=== PATIENT | female | born 1955 | race Caucasian/White ===

== ENCOUNTER 2017-12-03 11:40 | Inpatient (IN) ==
[2017-12-03] MEDS ORDERED: Naloxone 0.4 MG/ML INJ IVP PRN (15:59)
[2017-12-03] MEDS ORDERED: Ibuprofen 400 MG TABLET PO PRN (15:59)
[2017-12-03 17:00] LABS: Basophils % 0.2 %; Eosinophils # 0.1 K/mcL (0.0-0.6); Eosinophils % 0.4 %; Hematocrit 30.1 % (35.3-44.9); Hemoglobin 9.2 g/dL (11.5-15.4); Immature Granulocytes % 1.6 % (0-4); Lymphocytes # 1.3 K/mcL (0.6-4.6); Lymphocytes % 5.5 %; Mean Corpuscular HGB Conc 30.6 g/dL (31.6-35.5); Mean Corpuscular Hemoglobin 27.5 pg (28.0-33.3); Mean Corpuscular Volume 90.1 fL (83.0-100.0); Mean Platelet Volume 10.8 fL (9.4-12.4); Monocytes # 1.4 K/mcL (0.0-1.3); Monocytes % 6.2 %; Platelet Count 305 K/mcL (140-400); Red Blood Count 3.34 M/mcL (3.82-4.97); Red Cell Distribution Width 13.5 % (11.5-14.5); Segmented Neutrophils % 86.1 %
[2017-12-03 17:05] LABS: INR 1.4; Prothrombin Time 15.5 Seconds (9.4-12.1)
--- NOTE | 2017-12-03 17:08 | Internal Med History&Physical ---
Date of Encounter: 12/03/17 Time of Encounter: 16:10 Internal Medicine - H&P: HPI History of present illness: Ms. Hathaway is a 62 year old female with history of diabetes and hypertension presented as a transfer from [facility] for GI workup. She initially presented to [facility] for fever, nausea, vomiting, diarrhea. She was unable to tolerate any food for 4 days prior to admission. She denies blood in stool, hematemesis, recent antibiotic use, sick contacts. She was dry appearing per records and creatinine was elevated above her baseline and was reported to be lethargic as well. She was admitted for intractable n/v and kidney failure. She was started on broad-spectrum antibiotics and given IV fluid hydration. It was noted that initially WBC on admission was 15.8k and decreased but over the course of admission increased to 22.5k. She was afebrile during this time. CRP on admission was 34 but four days later was 41 despite antibiotic treatment. I was informed that he was seen by Surgery during this admission. However, faxed reports do not have any progress or consult notes, only initial H&P. Per review, patient was given IV fluids, sodium bicarb, meropenem, and Levaquin. Prior to transfer, she was given a dose of IV Lasix. Radiology findings as below; notable the MRCP showing acute pancreatitis with multiple gall stones. RUQ showed negative for cholecystitis. Lipase 253. LA was 3 and then decreased to 1.6. glucose ranged from 200 to 460. AST was 72, ALT was 51 and Alk phos was 149. Total bilirubin was normal at 0.3. Creatinine was 2.72 on admission but improved to 1.8 four days later. - She denies ETOH abuse, smoking, rec drugs, OTC/herbal medications - Chest x-ray 11/29: showed clear lung apices with atelectasis. - CT abdomen/pelvis 11/30: Cholelithiasis with 2.5 mm stone at extrahepatic CBD in region of the duodenal bulb/pancreatic head/uncinate process with enlargement of the pancreas and surrounding peripancreatic stranding. Findings consistent with acute pancreatitis likely secondary to impacted gallstone at common bile duct. - MRCP 12/01: Study was significantly limited by motion but findings were: acute pancreatitis, the CBD poorly visualized though suspected to be compressed by the pancreatitis. The punctate suspected CBD stone on CT cannot be adequately asessed on MRI due to motion. Cholelithiasis seen as multiple tiny stones. Diffuse periportal edema in the liver. Hepatic steatosis - RUQ ultrasound: cholelithiasis without cholecystitis or obstruction. Past Med Surg Social Fam HX - Past Medical History Medical history: arthritis, CHF, coronary artery disease, diabetes, GERD, hypertension Additional medical history: cataract removal, tonsil removal Psychiatric history: no psych history - Past Surgical History Surgical History: - Social History Smoking Status: Former smoker Smokeless Tobacco Status: No Alcohol use: none Drug use: none Internal Medicine - H&P: Meds Gluc 2Kcl/Chondr/Rivas Hy/Hy AC [Glucosamine & Chondroitin Cap] 1 each PO DAILY 12/03/17 [History] Lisinopril/Hydrochlorothiazide [Zestoretic 20-25 mg Tablet] 1 each PO DAILY [History] glipiZIDE [Glipizide] 10 mg PO DAILY 12/03/17 [History] metFORMIN [Glucophage] 1,000 mg PO BID 12/03/17 [History] 3 Allergy/AdvReac Type Severity Reaction Status Date / Time diphenhydramine Allergy Hives Verified 12/03/17 15:08 [From Benadryl] morphine Allergy Hives Verified 12/03/17 15:08 Penicillins Allergy Hives Verified 12/03/17 15:08 All Systems PM: A 10-system review of systems was performed and is negative for pertinent findings except as documented above in the HPI. - Constitutional Vitals: Temp Pulse Resp BP Pulse Ox 97.3 F L 100 20 137/76 96 12/03/17 15:14 12/03/17 15:14 12/03/17 15:14 12/03/17 15:14 12/03/17 15:14 General appearance: Present: A&O X 3, obese Exam: NAD - Head Head exam: Present: atraumatic, normocephalic - Eye Eye exam: Present: PERRL, conjuntiva pink, sclera anicteric Pupils: Present: PERRL - Neck Neck exam general surgery: Present: supple, trachea midline. Absent: lymphadenopathy - Respiratory Respiratory exam: Present: CTAB. Absent: accessory muscle use, rales, rhonchi, wheezes - Cardiovascular Cardiovascular exam: Present: RRR, +S1, +S2. Absent: diastolic murmur, gallop, rubs, systolic murmur - GI/Abdominal GI/Abdominal exam: Present: normal bowel sounds, soft, tenderness, no peritoneal signs. Absent: distended - Extremities Exam Extremities exam: Present: warm, radial pulses palpable and symmetrical. Absent : calf tenderness, cyanotic, pedal edema - Neurological Exam Neurological exam: Present: CN II-XII intact, oriented X3, no focal deficits. Absent: pronater drift, facial droop, speech deficit - Skin Skin exam: Present: dry, intact Internal Med - H&P Results - Labs CBC & Chem 7: 12/03/17 16:41 12/03/17 16:41 - Assessment and plan (1) Gallstone pancreatitis Current Visit: Yes Status: Acute Assessment and plan: Seen on MRCP at [place]. Lipase was 200s. Abdominal pain still present per patient. Imaging as above showed cholelithiasis near pancreatitc duct. Will consult GI for possible ERCP. The MRCP had poor quality due to excessive motion , will defer to GI if repeat imaging is needed. Records from [place] have been sent over with H&P and images. I requested progress notes and Surgery consults but only one progress note has been sent. We have requested another time that progress notes and consult faxed over to review. (2) Intractable nausea and vomiting Current Visit: Yes Status: Acute Assessment and plan: Likely acute pancreatitis, possibly gastroparesis as well. Zofran prn. Qualifiers: Vomiting type: unspecified Qualified Code(s): R11.2 - Nausea with vomiting , unspecified (3) Abdominal pain Current Visit: Yes Status: Acute Qualifiers: Abdominal location: epigastric Qualified Code(s): R10.13 - Epigastric pain (4) Diabetes Current Visit: Yes Status: Acute Assessment and plan: Diabetic diet, ISS NPO at midnight, then check glucose q6H Qualifiers: Diabetes mellitus type: type 2 Diabetes mellitus terminal system operator insulin use: with detention use Diabetes mellitus complication status: with unspecified complications Qualified Code(s): E11.8 - Type 2 diabetes mellitus with unspecified complications; Z79.4 - intermodal dispatcher (current) use of insulin (5) Hypertension Current Visit: Yes Status: Acute Assessment and plan: Takes lisinopril/HCTZ at home but will hold due to renal function. BP currently in acceptable limits. Will place prn labetolol. Qualifiers: Hypertension type: essential hypertension Qualified Code(s): I10 - Essential (primary) hypertension (6) Leukocytosis Current Visit: Yes Status: Acute Assessment and plan: Possibly related to acute pancreatitis, unsure if infectious etiology involved. She was placed on meropenem and levaquin Will continue broad spectrum antibiotics. May need to consult ID for further evaluation Qualifiers: Leukocytosis type: unspecified Qualified Code(s): D72.829 - Elevated white blood cell count, unspecified (7) Acute renal failure Current Visit: Yes Status: Acute Assessment and plan: Based on history, this may have been due to dehydration with severe n/v. Continue IV fluid replacement if needed. However, patient required Lasix prior to arrival, will hold off on giving IV fluids right now. Prior to transfer, Creatinin was 1.8 BMP pending Qualifiers: Acute renal failure type: unspecified Qualified Code(s): N17.9 - Acute kidney failure, unspecified (8) DVT prophylaxis Current Visit: Yes Status: Acute Assessment and plan: Heparin SQ - Time Spent With Patient Total time spent is greater than 50% in coordination of care (as documented) at patient's floor/unit and/or counseling patient:
[2017-12-03] MEDS ORDERED: Melatonin 3 MG TABLET PO PRN (17:10)
[2017-12-03] MEDS ORDERED: Sennosides/Docusate Sodium TABLET PO PRN (17:11)
[2017-12-03] MEDS ORDERED: *HR* Labetalol 20 MG/4 ML SYRINGE IVP PRN (17:15)
[2017-12-03 17:19] LABS: Albumin 3.1 g/dL (3.5-5.7); Albumin/Globulin Ratio 1.1 (1.1-2.2); Bilirubin,Direct 0.2 mg/dL (0.0-0.2); Bilirubin,Indirect 0.2 mg/dL (0.0-1.2); Bilirubin,Total 0.4 mg/dL (0.3-1.0); Calcium 8.4 mg/dL (8.6-10.3); Chol/HDL Ratio 2.7 (0-4.9); Globulin 2.7 g/dL (2.4-3.5); Potassium 4.8 mEq/L (3.5-5.1); Total Protein 5.8 g/dL (6.4-8.9)
[2017-12-03] MEDS ORDERED: *HR* Heparin 5,000 UNIT/ML VIAL SQ SCH (18:00)
[2017-12-03] MEDS: *HR* Heparin 5,000 UNIT/ML VIAL SQ SCH (20:08)
[2017-12-03] MEDS ORDERED: Insulin LISPRO 300 UNITS/3 ML VIAL SQ SCH (21:00)
[2017-12-03] MEDS: *HR* OxyCODONE Immed Rel 5 MG TABLET PO PRN (21:59)
[2017-12-03] MEDS: Meropenem 1,000 MG in Water for inj. (sterile) 20 ML 10 ML IVP SCH (23:58)
[2017-12-04 05:16] LABS: Basophils % 0.2 %; Eosinophils # 0.2 K/mcL (0.0-0.6); Eosinophils % 0.7 %; Hematocrit 27.2 % (35.3-44.9); Hemoglobin 8.5 g/dL (11.5-15.4); Immature Granulocytes % 1.9 % (0-4); Lymphocytes # 1.2 K/mcL (0.6-4.6); Lymphocytes % 4.9 %; Mean Corpuscular HGB Conc 31.3 g/dL (31.6-35.5); Mean Corpuscular Hemoglobin 27.3 pg (28.0-33.3); Mean Corpuscular Volume 87.5 fL (83.0-100.0); Mean Platelet Volume 10.6 fL (9.4-12.4); Monocytes # 1.5 K/mcL (0.0-1.3); Monocytes % 6.1 %; Neutrophils # 20.5 K/mcL (1.6-8.9); Platelet Count 341 K/mcL (140-400); Red Blood Count 3.11 M/mcL (3.82-4.97); Red Cell Distribution Width 13.7 % (11.5-14.5); Segmented Neutrophils % 86.2 %
[2017-12-04 05:37] LABS: Alanine Aminotransferase 22 Units/L (7-52); Albumin 2.7 g/dL (3.5-5.7); Albumin/Globulin Ratio 0.9 (1.1-2.2); Alkaline Phosphatase 126 Units/L (34-104); Aspartate Amino Transferase 17 Units/L (13-39); Bilirubin,Direct 0.1 mg/dL (0.0-0.2); Bilirubin,Indirect 0.2 mg/dL (0.0-1.2); Bilirubin,Total 0.3 mg/dL (0.3-1.0); C-Reactive Protein > 300 mg/L (Less than 10); Calcium 8.4 mg/dL (8.6-10.3); Globulin 3.1 g/dL (2.4-3.5); Lipase 18 Units/L (11-82); Potassium 4.5 mEq/L (3.5-5.1); Total Protein 5.8 g/dL (6.4-8.9)
[2017-12-04] MEDS: *HR* Heparin 5,000 UNIT/ML VIAL SQ SCH ×2 (05:43→18:22)
[2017-12-04] MEDS ORDERED: Insulin LISPRO 300 UNITS/3 ML VIAL SQ SCH (08:00)
[2017-12-04] MEDS: *HR* OxyCODONE Immed Rel 5 MG TABLET PO PRN ×2 (09:00→18:22)
[2017-12-04] MEDS: Ondansetron 4 MG/2 ML VIAL IVP PRN (09:00)
[2017-12-04] MEDS ORDERED: D5% in Water 1,000 ML IVC PRN (10:10)
[2017-12-04] MEDS ORDERED: *HR* Dextrose 50 % in Water (Syg) 50 ML SYRINGE IVP PRN (10:10)
[2017-12-04] MEDS ORDERED: Dextrose Gel 15 GM/37.5 ML TUBE PO PRN ×2 (10:10)
--- NOTE | 2017-12-04 10:11 | Internal Med Progress Note ---
Hospitalist Progress Note - Encounter Date of Encounter: 12/04/17 Time of Encounter: 10:21 - Exam Vitals: Temp Pulse Resp BP Pulse Ox 98.0 F 102 17 135/64 94 12/04/17 06:57 12/04/17 06:57 12/04/17 06:57 12/04/17 06:57 12/04/17 06:57 Exam: Gen: NAD CVS: tachycardic Lungs: Decreased air entry and lung dougherty, limited due to body habitus. Faint end exp wheezing. Abd: + epigastric tenderness, normal bowel sounds. Ext; no edema - Assessment and Plan (1) Gallstone pancreatitis Current Visit: Yes Status: Acute Assessment and Plan: Seen on MRCP at [place]. Lipase was 200s. Abdominal pain still present per patient. Imaging as above showed cholelithiasis near pancreatitc duct. Will consult GI for possible ERCP. The MRCP had poor quality due to excessive motion , will defer to GI if repeat imaging is needed. Records from [place] have been sent over with H&P and images. I requested progress notes and Surgery consults but only one progress note has been sent. Repeat CT abdomen/pelvis here without contrast (due to renal function) I was just informed that the discharge summary was done today and so they will fax it over now. (2) Intractable nausea and vomiting Current Visit: Yes Status: Acute Assessment and Plan: Likely acute pancreatitis, possibly gastroparesis as well. Zofran prn. (3) Abdominal pain Current Visit: Yes Status: Acute Assessment and Plan: Plan as above. (4) Leukocytosis Current Visit: Yes Status: Acute Assessment and Plan: Possibly related to acute pancreatitis, unsure if infectious etiology involved. - Chest x-ray 11/29: showed clear lung apices with atelectasis. - CT abdomen/pelvis 11/30: Cholelithiasis with 2.5 mm stone at extrahepatic CBD in region of the duodenal bulb/pancreatic head/uncinate process with enlargement of the pancreas and surrounding peripancreatic stranding. Findings consistent with acute pancreatitis likely secondary to impacted gallstone at common bile duct. - MRCP 12/01: Study was significantly limited by motion but findings were: acute pancreatitis, the CBD poorly visualized though suspected to be compressed by the pancreatitis. The punctate suspected CBD stone on CT cannot be adequately asessed on MRI due to motion. Cholelithiasis seen as multiple tiny stones. Diffuse periportal edema in the liver. Hepatic steatosis - RUQ ultrasound: cholelithiasis without cholecystitis or obstruction. She was placed on meropenem and levaquin at [place] = Here WBC is 23k two days - CRP >300. - Afebrile - tachycardic Will continue meropenem and Levaquin Will consult ID for evaluation Repeat CT abdomen/Pelvis stat to ensure no pancreatitis complications. (5) Diabetes Current Visit: Yes Status: Acute Assessment and Plan: Diabetic diet, ISS NPO at midnight, then check glucose q6H (6) Hypertension Current Visit: Yes Status: Acute Assessment and Plan: Takes lisinopril/HCTZ at home but will hold due to renal function. BP currently in acceptable limits. Will place prn labetolol. (7) Acute renal failure Current Visit: Yes Status: Acute Assessment and Plan: Based on history, this may have been due to dehydration with severe n/v. Continue IV fluid replacement if needed. However, patient required Lasix prior to arrival, will hold off on giving IV fluids right now. Prior to transfer, Creatinine at [facility] was 2.72 and gradually improved with IV fluids. Currently it has improved to 1.6. (8) DVT prophylaxis Current Visit: Yes Status: Acute Assessment and Plan: Heparin SQ - Time Spent with Patient Total time spent is greater than 50% in coordination of care (as documented) at patient's floor/unit and/or counseling patient: Internal Medicine: Result - Labs CBC & Chem 7: 12/04/17 04:55 12/04/17 04:55 Labs: Short CBC 12/03/17 12/04/17 Range/Units 16:41 04:55 WBC 23.2 H 23.8 H (4.3-11.1) K/mcL Hgb 9.2 L 8.5 L (11.5-15.4) g/dL Hct 30.1 L 27.2 L (35.3-44.9) % Plt Count 305 341 (140-400) K/mcL Neutrophils # 20.0 H 20.5 H (1.6-8.9) K/mcL BMP 12/03/17 12/04/17 16:41 04:55 Sodium 139 139 Potassium 4.8 4.5 Chloride 113 H 112 H Carbon Dioxide 17 L 15 L BUN 38 H 36 H Creatinine 1.69 H 1.55 H Glucose 196 H 238 H Calcium 8.4 L 8.4 L Liver Function 12/03/17 12/04/17 Range/Units 16:41 04:55 Total Bilirubin 0.4 0.3 (0.3-1.0) mg/dL Direct Bilirubin 0.2 0.1 (0.0-0.2) mg/dL AST 19 17 (13-39) Units/L ALT 29 22 (7-52) Units/L Alkaline Phosphatase 142 H 126 H (34-104) Units/L Albumin 3.1 L 2.7 L (3.5-5.7) g/dL - ABG Interpretation ABG results: PT/INR, D-dimer PT 15.5 Seconds (9.4-12.1) H 12/03/17 16:41 Consult Discharge Plan - Plan Referrals: Carol Hurd, MEAL TEMPERER [Primary Care Provider] - (2) Intractable nausea and vomiting Qualifiers: Vomiting type: unspecified Qualified Code(s): R11.2 - Nausea with vomiting, unspecified (3) Abdominal pain Qualifiers: Abdominal location: epigastric Qualified Code(s): R10.13 - Epigastric pain (4) Leukocytosis Qualifiers: Leukocytosis type: unspecified Qualified Code(s): D72.829 - Elevated white blood cell count, unspecified (5) Diabetes Qualifiers: Diabetes mellitus type: type 2 Diabetes mellitus oysterman insulin use: with shelter use Diabetes mellitus complication status: with unspecified complications Qualified Code(s): E11.8 - Type 2 diabetes mellitus with unspecified complications; Z79.4 - manager intermediate (current) use of insulin (6) Hypertension Qualifiers: Hypertension type: essential hypertension Qualified Code(s): I10 - Essential (primary) hypertension (7) Acute renal failure Qualifiers: Acute renal failure type: unspecified Qualified Code(s): N17.9 - Acute kidney failure, unspecified
[2017-12-04] MEDS ORDERED: Ringers Solution, Lactated 1,000 ML IVC SCH (10:30)
--- NOTE | 2017-12-04 12:24 | Gastroenterology Consult Note ---
<Barry Villa - Last Filed: 12/04/17 12:22> Date of Encounter: 12/04/17 Time of Encounter: 11:00 - Assessment and plan (1) Gallstone pancreatitis Current Visit: Yes Status: Acute Assessment and plan: - CT abdomen/pelvis 11/30: Cholelithiasis with 2.5 mm stone at extrahepatic CBD in region of the duodenal bulb/pancreatic head/uncinate process with enlargement of the pancreas and surrounding peripancreatic stranding. Findings consistent with acute pancreatitis likely secondary to impacted gallstone at common bile duct. - MRCP 12/01: Study was significantly limited by motion but findings were: acute pancreatitis, the CBD poorly visualized though suspected to be compressed by the pancreatitis. The punctate suspected CBD stone on CT cannot be adequately assessed on MRI due to motion. Cholelithiasis seen as multiple tiny stones. Diffuse periportal edema in the liver. Hepatic steatosis - RUQ ultrasound: cholelithiasis without cholecystitis or obstruction. No indication of obstruction on MRCP. LFT's normal. No evidence of cholangitis. Start IV fluids. Continue antiemetics and pain control. If LFTs increase will consider ERCP. Start clear liquid diet, and slowly advance as tolerated. - Time Spent With Patient Total time spent is greater than 50% in coordination of care (as documented) at patient's floor/unit and/or counseling patient: GI History of Present Illness - Data of Consult Patient: new to practice Consult date: 12/04/17 Requesting Physician: Michael Bello DO - Consult Narrative Reason for consult: Pancreatitis History of present illness: Ms. Hathaway is a 62 year old female with PMHx of arthritis, CHF, CAD, DM, GERD, HTN who was transferred from [facility] for GI workup. She initially presented to [facility] for fever, nausea, vomiting, diarrhea. She was unable to tolerate any food for 4 days prior to admission. She denies blood in stool, hematemesis, recent antibiotic use, sick contacts. She was dry appearing per records and creatinine was elevated above her baseline and was reported to be lethargic as well. She was admitted for intractable n/v and kidney failure. She was started on broad-spectrum antibiotics and given IV fluid hydration. It was noted that initially WBC on admission was 15.8k and decreased but over the course of admission increased to 22.5k. She was afebrile during this time. CRP on admission was 34 but four days later was 41 despite antibiotic treatment. Lipase was 253, AST was 72, ALT was 51 and Alk phos was 149. She denies ETOH abuse, smoking, recreational drugs. On admission here, WBC 23.2, Hgb 9.2, TB 0.4, AST 19, ALT 29, Alk phos 142, Lipase 18, CRP >300. - CT abdomen/pelvis 11/30: Cholelithiasis with 2.5 mm stone at extrahepatic CBD in region of the duodenal bulb/pancreatic head/uncinate process with enlargement of the pancreas and surrounding peripancreatic stranding. Findings consistent with acute pancreatitis likely secondary to impacted gallstone at common bile duct. - MRCP 12/01: Study was significantly limited by motion but findings were: acute pancreatitis, the CBD poorly visualized though suspected to be compressed by the pancreatitis. The punctate suspected CBD stone on CT cannot be adequately assessed on MRI due to motion. Cholelithiasis seen as multiple tiny stones. Diffuse periportal edema in the liver. Hepatic steatosis - RUQ ultrasound: cholelithiasis without cholecystitis or obstruction. Procedures: No records NSAIDs: None Anticoagulation: None Past Med Surg Social Fam HX - Past Medical History Medical history: arthritis, CHF, coronary artery disease, diabetes, GERD, hypertension Additional medical history: cataract removal, tonsil removal Psychiatric history: no psych history - Past Surgical History Surgical History: - Social History Smoking Status: Former smoker Smokeless Tobacco Status: No Alcohol use: none Drug use: none - Gastrointestinal Gastrointestinal: Present: as per HPI - Constitutional Constitutional: as per HPI - EENT Eyes: as per HPI Ears: Present: as per HPI Nose, mouth and throat: Present: as per HPI - Cardiovascular Cardiovascular ROS: Present: as per HPI - Respiratory Respiratory IM: Present: as per HPI - Genitourinary Genitourinary: Absent: change in color, Urinary frequency - Neurological ROS Neurological GI: Present: as per HPI - Hematologic/Lymphatic Hematologic/Lymphatic pediatric: Present: as per HPI - Musculoskeletal Musculoskeletal ROS GI: Present: as per HPI - Integumentary Integumentary GI: Present: as per HPI - Psychiatric ROS Psychiatric GI: Present: as per HPI - Endocrine Endocrine IM: Present: as per HPI - Constitutional Vitals: Temp Pulse Resp BP Pulse Ox 97.8 F 101 16 147/79 98 09/28/18 11:21 12/04/17 11:21 12/04/17 11:21 12/04/17 11:21 12/04/17 11:21 General appearance: Present: cooperative, A&O X 3, no acute distress, answers questions appropriately - Head Head exam: Present: atraumatic, normocephalic - Eye Eye exam: Present: normal appearance, sclera anicteric - ENT ENT exam: Present: mucous membranes dry - Neck Neck exam general surgery: Present: normal inspection, trachea midline - Respiratory Respiratory exam: Present: CTAB. Absent: rales, rhonchi - Cardiovascular Cardiovascular exam: Present: RRR, +S1, +S2 - GI/Abdominal GI/Abdominal exam: Present: soft, tenderness (epigastric and LUQ), no peritoneal signs. Absent: distended, firm, guarding - Rectal Rectal exam: Present: deferred - Extremities Exam Extremities exam: Present: warm - Neurological Exam Neurological exam: Present: no focal deficits - Psychiatric Psychiatric exam: Present: normal affect, normal mood - Skin Skin exam: Present: dry, intact, normal color, warm Results - Labs CBC & Chem 7: 12/04/17 04:55 12/04/17 04:55 Labs: Last Result Calcium 8.4 mg/dL (8.6-10.3) L 12/04/17 04:55 C-Reactive Protein > 300 mg/L (Less than 10) H 12/04/17 04:55 Triglycerides 114 mg/dL (< 150) 12/03/17 16:41 Entire Visit Hgb 8.5 g/dL (11.5-15.4) L 12/04/17 04:55 Hct 27.2 % (35.3-44.9) L 12/04/17 04:55 PT 15.5 Seconds (9.4-12.1) H 12/03/17 16:41 Total Bilirubin 0.3 mg/dL (0.3-1.0) 12/04/17 04:55 AST 17 Units/L (13-39) 12/04/17 04:55 ALT 22 Units/L (7-52) 12/04/17 04:55 Lipase 18 Units/L (11-82) 12/04/17 04:55 - ABG ABG results: PT/INR, D-dimer PT 15.5 Seconds (9.4-12.1) H 12/03/17 16:41 - Impressions Impressions Abdomen/Pelvis CT 12/04/17 10:27 IMPRESSION: 1. Progressing CT findings of acute pancreatitis. There is a 2 mm calculus pancreatic head. Cannot exclude distal common bile duct stone. 2. Cholelithiasis. 3. Bilateral pleural effusions with lower lobe atelectasis or infiltrate. 4. Diverticulosis. 5. Pelvic ascites. D/ / 12/04/2017 11:27:54 Calin Wilhelm MD / [place] Interpreting Provider: Calin Wilhelm MD Chest CT 12/04/17 10:27 IMPRESSION: 1. Small bilateral pleural effusions with lower lobe atelectasis or infiltrate right greater the left. D/ / 12/04/2017 11:22:14 Calin Wilhelm MD / [place] Interpreting Provider: Calin Wilhelm MD Consult Discharge Plan - Plan Referrals: Carol Hurd, RETORT OPERATOR [Primary Care Provider] - <[email or web address] - Last Filed: 12/04/17 16:39> Date of Encounter: 12/04/17 Time of Encounter: 10:00 - Time Spent With Patient Total time spent is greater than 50% in coordination of care (as documented) at patient's floor/unit and/or counseling patient: GI History of Present Illness - Data of Consult Requesting Physician: Michael Bello DO - Consult Narrative History of present illness: Ms. Hathaway is a 62 year old female - Constitutional Vitals: Temp Pulse Resp BP Pulse Ox 99.1 F 90 17 127/76 96 12/04/17 16:27 12/04/17 16:27 12/04/17 16:27 12/04/17 16:27 12/04/17 16:27 Results - Labs CBC & Chem 7: 12/04/17 04:55 12/04/17 04:55 Labs: Last Result Calcium 8.4 mg/dL (8.6-10.3) L 12/04/17 04:55 C-Reactive Protein > 300 mg/L (Less than 10) H 12/04/17 04:55 Triglycerides 114 mg/dL (< 150) 12/03/17 16:41 Entire Visit Hgb 8.5 g/dL (11.5-15.4) L 12/04/17 04:55 Hct 27.2 % (35.3-44.9) L 12/04/17 04:55 PT 15.5 Seconds (9.4-12.1) H 12/03/17 16:41 Total Bilirubin 0.3 mg/dL (0.3-1.0) 12/04/17 04:55 AST 17 Units/L (13-39) 12/04/17 04:55 ALT 22 Units/L (7-52) 12/04/17 04:55 Lipase 18 Units/L (11-82) 12/04/17 04:55 - ABG ABG results: PT/INR, D-dimer PT 15.5 Seconds (9.4-12.1) H 12/03/17 16:41 - Impressions Impressions Abdomen/Pelvis CT 12/04/17 10:27 IMPRESSION: 1. Progressing CT findings of acute pancreatitis. There is a 2 mm calculus pancreatic head. Cannot exclude distal common bile duct stone. 2. Cholelithiasis. 3. Bilateral pleural effusions with lower lobe atelectasis or infiltrate. 4. Diverticulosis. 5. Pelvic ascites. D/ / 12/04/2017 11:27:54 Calin Wilhelm MD / [email or web address] Interpreting Provider: Calin Wilhelm MD Chest CT 12/04/17 10:27 IMPRESSION: 1. Small bilateral pleural effusions with lower lobe atelectasis or infiltrate right greater the left. D/ / 12/04/2017 11:22:14 Calin Wilhelm MD / [facility] Interpreting Provider: Calin Wilhelm MD - Attending Attestation I examined this patient and my medical decision-making was reviewed with the Resident Physician. I agree with the documented findings, disposition and treatment plan as described except to the extent set forth below. Pt seen. No active issues. Wants to eat. O/E soft , mild upper tanderness. A; Pt with acute pancreatitis most prob GS induced with worsening Ct finding. Has bilateral small pleural effusion. CT reapet done witout IV. BISAP score 4 ( significant risk ) No cholangitis, LFTS normal. Rec: NPO Ringer lactate 200 ml/hr Pain control NO NSAIDS DVT prophylaxsis
--- NOTE | 2017-12-04 13:03 | Infectious Disease Consult ---
Date of Encounter: 12/04/17 Time of Encounter: 12:58 Assessment and Plan (1) Gallstone pancreatitis Status: Acute Assessment and plan: Pancreatitis is known to cause SIRS criteria including tachycardia and tachypnea and leukocytosis and fever Per guidelines there is no recommendation to treat unless you have necrosis with over 30% of the pancreas or pseudocyst We will stop all antibiotics and observe Await surgery or GI recommendation to see of the gallbladder studies are they need to remove it because it continues to have cholelithiasis (2) SIRS (systemic inflammatory response syndrome) Status: Acute Assessment and plan: Secondary to acute pancreatitis (3) Allergy to antibiotic Status: Acute Assessment and plan: Has penicillin allergy about 4 years ago Tolerates amoxicillin (4) Intractable nausea and vomiting Status: Acute Assessment and plan: Secondary to acute pancreatitis secondary to obstructive pancreatitis Qualifiers: Vomiting type: unspecified Qualified Code(s): R11.2 - Nausea with vomiting , unspecified (5) Abdominal pain Status: Acute Qualifiers: Abdominal location: epigastric Qualified Code(s): R10.13 - Epigastric pain (6) Acute renal failure Status: Acute Assessment and plan: Likely secondary to pancreatitis Recommend nephrology to evaluate Qualifiers: Acute renal failure type: unspecified Qualified Code(s): N17.9 - Acute kidney failure, unspecified Infectious Disease HPI - Data of Consult Patient: new to practice Consult date: 12/04/17 Requesting Physician: Michael Bello DO Primary Care Provider: Carol Hurd CNP - Consult Narrative Reason for consult: "Leukocytosis, possible infection" History of present illness: Ms. Hathaway is a 62 year old female Patient is a 8-year-old woman who presented to [facility] from [facility] for fevers nausea vomiting and diarrhea, we are consulted for possible infectious source. Patient 8-year-old woman with past medical history mentioned below including arthritis, congestive heart failure, coronary artery disease, diabetes mellitus type 2, GERD and hypertension who apparently for a few days prior to admission has been complaining of nausea vomiting diarrhea fever and anorexia. Patient denied any blood in the stool or hematemesis. Patient denied any recent antibiotic use or sick contacts. Patient presented to [place] for further evaluation. Since admission, patient has been afebrile patient has been tachycardic but no tachypnea. Patient is hemodynamically stable. Presenting labs revealed a WC of 23,000 with 86% neutrophils, BUN of 38 creatinine of 1.69, lactic acid of 1.4 CRP over 300. Lipase was checked and it was 18. Blood cultures were obtained 2 and are no growth to date Patient had a CT chest abdomen and pelvis which revealed small bilateral pleural effusion with lower lobe atelectasis or infiltrate right greater than left. CT of the abdomen and pelvis with no IV no oral contrast to be acute pancreatitis with a 2 mm calculus in the pancreatic head possible common bile duct stone. Patient also has cholelithiasis diverticulosis and pelvic ascites. Patient was started empirically on meropenem We were asked to evaluate the patient and make further recommendation. Patient also apparently has a history of penicillin allergy. CC: Michael Bello, DO Past Med Surg Social Fam HX - Past Medical History Medical history: arthritis, CHF, coronary artery disease, diabetes, GERD, hypertension Additional medical history: cataract removal, tonsil removal Psychiatric history: no psych history - Past Surgical History Surgical History: - Social History Smoking Status: Former smoker Smokeless Tobacco Status: No Alcohol use: none Drug use: none Infectious Disease-CN:Meds Gluc 2Kcl/Chondr/Rivas Hy/Hy AC [Glucosamine & Chondroitin Cap] 1 each PO DAILY 12/03/17 [History] Lisinopril/Hydrochlorothiazide [Zestoretic 20-25 mg Tablet] 1 each PO DAILY [History] glipiZIDE [Glipizide] 10 mg PO DAILY 12/03/17 [History] metFORMIN [Glucophage] 1,000 mg PO BID 12/03/17 [History] 3 Allergy/AdvReac Type Severity Reaction Status Date / Time diphenhydramine Allergy Hives Verified 12/03/17 15:08 [From Benadryl] morphine Allergy Hives Verified 12/03/17 15:08 Penicillins Allergy Hives Verified 12/03/17 15:08 Review of systems: 10 point review of systems done, negative other for what mentioned in the history of present illness Exam - Constitutional Vitals: Temp Pulse Resp BP Pulse Ox 97.8 F 101 16 147/79 98 12/04/17 11:21 12/04/17 11:21 12/04/17 11:21 12/04/17 11:21 12/04/17 11:21 General appearance: cooperative, no acute distress, no febrile - Head Head exam: Present: atraumatic, normocephalic - Eye Eye exam: Present: EOMI, PERRL, sclera anicteric - ENT ENT exam: Present: mucous membranes dry - Neck Neck exam: Present: full ROM. Absent: meningismus - Respiratory Respiratory exam: Present: CTAB, wheezes. Absent: rhonchi Additional comments: Labored breathing but no use of accessory muscles - Cardiovascular Cardiovascular exam: Present: RRR, +S1, +S2, tachycardia - GI/Abdominal GI/Abdominal exam: Present: soft, tenderness. Absent: guarding Additional comments: In the epigastric and left upper quadrant area - Extremities Exam Extremities exam: Present: full ROM, normal inspection - Neurological Exam Neurological exam: Present: alert, oriented X3 - Psychiatric Psychiatric exam: Present: normal affect, normal mood - Skin Skin exam: Present: normal color. Absent: rash Infectious Disease CN: Results - Labs CBC & Chem 7: 12/04/17 04:55 12/04/17 04:55 Cultures: Cultures 12/03/17 16:39 Blood Culture - Preliminary Peripheral Venipuncture Culture is incubating and being continuously monitored for growth. Final report to follow. 12/03/17 16:44 Blood Culture - Preliminary Peripheral Venipuncture Culture is incubating and being continuously monitored for growth. Final report to follow. Consult Discharge Plan - Plan Referrals: Carol Hurd CNP [Primary Care Provider] -
[2017-12-04] MEDS: Meropenem 1,000 MG in Water for inj. (sterile) 20 ML 10 ML IVP SCH (13:21)
[2017-12-04] MEDS: Insulin LISPRO 300 UNITS/3 ML VIAL SQ SCH ×2 (13:21→18:23)
[2017-12-04] MEDS ORDERED: Ringers Solution, Lactated 1,000 ML ONE (19:05)
[2017-12-05] MEDS: Ringers Solution, Lactated 1,000 ML IVC SCH ×3 (00:15→18:57)
[2017-12-05] MEDS: traMADol 50 MG TABLET PO PRN (00:36)
[2017-12-05] MEDS: Insulin LISPRO 300 UNITS/3 ML VIAL SQ SCH ×6 (00:38→20:40)
[2017-12-05 04:39] LABS: Basophils % 0.1 %; Eosinophils # 0.2 K/mcL (0.0-0.6); Eosinophils % 1.2 %; Hematocrit 24.7 % (35.3-44.9); Hemoglobin 7.6 g/dL (11.5-15.4); Immature Granulocytes % 1.5 % (0-4); Lymphocytes # 1.2 K/mcL (0.6-4.6); Lymphocytes % 6.8 %; Mean Corpuscular HGB Conc 30.8 g/dL (31.6-35.5); Mean Corpuscular Hemoglobin 27.3 pg (28.0-33.3); Mean Corpuscular Volume 88.8 fL (83.0-100.0); Mean Platelet Volume 10.3 fL (9.4-12.4); Monocytes # 1.1 K/mcL (0.0-1.3); Monocytes % 5.8 %; Neutrophils # 15.3 K/mcL (1.6-8.9); Platelet Count 328 K/mcL (140-400); Red Blood Count 2.78 M/mcL (3.82-4.97); Red Cell Distribution Width 13.5 % (11.5-14.5); Segmented Neutrophils % 84.6 %
[2017-12-05 04:55] LABS: Calcium 8.2 mg/dL (8.6-10.3); Potassium 3.9 mEq/L (3.5-5.1)
[2017-12-05] MEDS: *HR* Heparin 5,000 UNIT/ML VIAL SQ SCH ×2 (06:20→17:42)
[2017-12-05] MEDS: *HR* OxyCODONE Immed Rel 5 MG TABLET PO PRN ×2 (06:20→20:45)
[2017-12-05] MEDS: Ondansetron 4 MG/2 ML VIAL IVP PRN ×2 (09:30→20:43)
--- NOTE | 2017-12-05 14:23 | Internal Med Progress Note ---
Hospitalist Progress Note - Encounter Date of Encounter: 12/05/17 Time of Encounter: 14:21 - Subjective Interval History: No acute events. She is trying to advance diet but currently nauseated. Abdominal pain has slight improvement. - Exam Vitals: Temp Pulse Resp BP Pulse Ox 98.9 F 90 16 134/77 93 12/05/17 10:34 12/05/17 10:34 12/05/17 10:34 12/05/17 10:34 12/05/17 10:34 Exam: Gen: NAD CVS: tachycardic Lungs: Decreased air entry and lung dougherty, limited due to body habitus. fine rales Abd: + epigastric tenderness, normal bowel sounds. Ext; no edema - Assessment and Plan (1) Gallstone pancreatitis Current Visit: Yes Status: Acute Assessment and Plan: Seen on MRCP at [place]. Lipase was 200s. Abdominal pain still present per patient. Imaging as above showed cholelithiasis near pancreatitc duct. GI consulted; no ERCP warranted at this time. Continue IV fluid hydration as tolerated. (2) Intractable nausea and vomiting Current Visit: Yes Status: Acute Assessment and Plan: Likely acute pancreatitis, possibly gastroparesis as well. Zofran prn. (3) Leukocytosis Current Visit: Yes Status: Acute Assessment and Plan: Possibly related to acute pancreatitis, unsure if infectious etiology involved. - Chest x-ray 11/29: showed clear lung apices with atelectasis. - CT abdomen/pelvis 11/30: Cholelithiasis with 2.5 mm stone at extrahepatic CBD in region of the duodenal bulb/pancreatic head/uncinate process with enlargement of the pancreas and surrounding peripancreatic stranding. Findings consistent with acute pancreatitis likely secondary to impacted gallstone at common bile duct. - MRCP 12/01: Study was significantly limited by motion but findings were: acute pancreatitis, the CBD poorly visualized though suspected to be compressed by the pancreatitis. The punctate suspected CBD stone on CT cannot be adequately asessed on MRI due to motion. Cholelithiasis seen as multiple tiny stones. Diffuse periportal edema in the liver. Hepatic steatosis - RUQ ultrasound: cholelithiasis without cholecystitis or obstruction. She was placed on meropenem and levaquin at [facility] = Here WBC is 23k two days WBC is improving to 18k today Afebrile Tachycardic ID consulted and this is less likely infection and so meropenem and levaquin discontinued, patient doing well continues to improve. (4) Diabetes Current Visit: Yes Status: Acute Assessment and Plan: ISS (5) Hypertension Current Visit: Yes Status: Acute Assessment and Plan: Takes lisinopril/HCTZ at home but will hold due to renal function. BP currently in acceptable limits. Will place prn labetolol. (6) Acute renal failure Current Visit: Yes Status: Acute Assessment and Plan: Based on history, this may have been due to dehydration with severe n/v. Continue IV fluid replacement if needed. However, patient required Lasix prior to arrival, will hold off on giving IV fluids right now. Prior to transfer, Creatinine at [facility] was 2.72 and gradually improved with IV fluids. Currently has improved to 1.3 (7) DVT prophylaxis Current Visit: Yes Status: Acute Assessment and Plan: Heparin SQ - Time Spent with Patient Total time spent is greater than 50% in coordination of care (as documented) at patient's floor/unit and/or counseling patient: Internal Medicine: Result - Labs CBC & Chem 7: 12/05/17 04:25 12/05/17 04:25 Labs: Short CBC 12/05/17 Range/Units 04:25 WBC 18.1 H (4.3-11.1) K/mcL Hgb 7.6 L (11.5-15.4) g/dL Hct 24.7 L (35.3-44.9) % Plt Count 328 (140-400) K/mcL Neutrophils # 15.3 H (1.6-8.9) K/mcL BMP 12/05/17 04:25 Sodium 135 L Potassium 3.9 Chloride 109 H Carbon Dioxide 18 L BUN 28 H Creatinine 1.30 H Glucose 328 H Calcium 8.2 L - ABG Interpretation ABG results: PT/INR, D-dimer PT 15.5 Seconds (9.4-12.1) H 12/03/17 16:41 Consult Discharge Plan - Plan Referrals: Carol Hurd, BILINGUAL SALES REPRESENTATIVE [Primary Care Provider] - (2) Intractable nausea and vomiting Qualifiers: Vomiting type: unspecified Qualified Code(s): R11.2 - Nausea with vomiting, unspecified (3) Leukocytosis Qualifiers: Leukocytosis type: unspecified Qualified Code(s): D72.829 - Elevated white blood cell count, unspecified (4) Diabetes Qualifiers: Diabetes mellitus type: type 2 Diabetes mellitus detention insulin use: with detention use Diabetes mellitus complication status: with unspecified complications Qualified Code(s): E11.8 - Type 2 diabetes mellitus with unspecified complications; Z79.4 - prison (current) use of insulin (5) Hypertension Qualifiers: Hypertension type: essential hypertension Qualified Code(s): I10 - Essential (primary) hypertension (6) Acute renal failure Qualifiers: Acute renal failure type: unspecified Qualified Code(s): N17.9 - Acute kidney failure, unspecified
[2017-12-05] MEDS ORDERED: Insulin DETEMIR 100 UNIT/ML X5UNITS SQ ONE (14:26)
[2017-12-05] MEDS ORDERED: Insulin Regular, Human 100 UNIT/ML SQ ONE (14:27)
[2017-12-05] MEDS ORDERED: Ringers Solution, Lactated 1,000 ML IVC SCH (16:00)
[2017-12-05] MEDS: *HR* Promethazine 25 MG/ML VIAL IVP PRN (17:42)
[2017-12-05] MEDS ORDERED: Acetaminophen 325 MG TABLET PO PRN (18:49)
[2017-12-06 06:34] LABS: Basophils % 0.2 %; Eosinophils # 0.2 K/mcL (0.0-0.6); Eosinophils % 0.9 %; Hematocrit 24.8 % (35.3-44.9); Hemoglobin 7.8 g/dL (11.5-15.4); Immature Granulocytes % 1.4 % (0-4); Lymphocytes # 1.3 K/mcL (0.6-4.6); Lymphocytes % 8.1 %; Mean Corpuscular HGB Conc 31.5 g/dL (31.6-35.5); Mean Corpuscular Hemoglobin 27.7 pg (28.0-33.3); Mean Corpuscular Volume 87.9 fL (83.0-100.0); Mean Platelet Volume 10.5 fL (9.4-12.4); Monocytes # 1.1 K/mcL (0.0-1.3); Monocytes % 6.9 %; Neutrophils # 13.1 K/mcL (1.6-8.9); Platelet Count 347 K/mcL (140-400); Red Blood Count 2.82 M/mcL (3.82-4.97); Red Cell Distribution Width 13.2 % (11.5-14.5); Segmented Neutrophils % 82.5 %
[2017-12-06] MEDS: Ringers Solution, Lactated 1,000 ML IVC SCH ×2 (06:48→09:08)
[2017-12-06 06:55] LABS: Calcium 8.3 mg/dL (8.6-10.3); Potassium 3.7 mEq/L (3.5-5.1)
[2017-12-06] MEDS: *HR* Heparin 5,000 UNIT/ML VIAL SQ SCH ×2 (06:58→17:24)
[2017-12-06] MEDS: traMADol 50 MG TABLET PO PRN (09:07)
[2017-12-06] MEDS: Ondansetron 4 MG/2 ML VIAL IVP PRN (09:07)
[2017-12-06] MEDS: Insulin LISPRO 300 UNITS/3 ML VIAL SQ SCH ×4 (09:12→20:05)
--- NOTE | 2017-12-06 12:29 | Internal Med Progress Note ---
Hospitalist Progress Note - Encounter Date of Encounter: 12/06/17 Time of Encounter: 12:24 - Subjective Interval History: No acute events. No change in abdominal pain. Appetite is still poor. - Exam Vitals: Temp Pulse Resp BP Pulse Ox 98.1 F 85 14 126/68 92 12/06/17 09:57 12/06/17 09:57 12/06/17 09:57 12/06/17 09:57 12/06/17 09:57 Exam: Gen: NAD CVS: tachycardic Lungs: Decreased air entry and lung dougherty, limited due to body habitus. fine rales Abd: + epigastric tenderness, normal bowel sounds. Ext; there is 1+ bipedal edema. - Assessment and Plan (1) Gallstone pancreatitis Current Visit: Yes Status: Acute Assessment and Plan: - CT abdomen/pelvis 11/30: Cholelithiasis with 2.5 mm stone at extrahepatic CBD in region of the duodenal bulb/pancreatic head/uncinate process with enlargement of the pancreas and surrounding peripancreatic stranding. Findings consistent with acute pancreatitis likely secondary to impacted gallstone at common bile duct. - MRCP 12/01: Study was significantly limited by motion but findings were: acute pancreatitis, the CBD poorly visualized though suspected to be compressed by the pancreatitis. The punctate suspected CBD stone on CT cannot be adequately asessed on MRI due to motion. Cholelithiasis seen as multiple tiny stones. Diffuse periportal edema in the liver. Hepatic steatosis - RUQ ultrasound: cholelithiasis without cholecystitis or obstruction. Gallstones and pancreatitis were seen on MRCP and CT images at [facility]. Lipase was normal in 200s, but CT showed findings consistent with acute pancreatitis. Imaging as above showed cholelithiasis near pancreatitc duct. Surgeon at [facility] requested transfer for GI eval for consideration of an ERCP GI consulted; no ERCP warranted at this time. Continue IV fluid hydration as tolerated. - Right now she has edema that was not present yesterday. Will hold IV fluids today. There was concern prior to transfer that she had active infection/sepsis and so she was transferred on meropenem and Levaquin. ID was consulted and we held antibiotics and observed. WBC count decreased and she is afebrile off of antibiotics. Now that patient appears more stable, I think benefit from a Surgical consult. NPO at midnight. (2) Intractable nausea and vomiting Current Visit: Yes Status: Acute Assessment and Plan: Likely acute pancreatitis, possibly gastroparesis as well. Zofran prn. (3) Leukocytosis Current Visit: Yes Status: Acute Assessment and Plan: Possibly related to acute pancreatitis, unsure if infectious etiology involved. - Chest x-ray 11/29: showed clear lung apices with atelectasis. - CT abdomen/pelvis 11/30: Cholelithiasis with 2.5 mm stone at extrahepatic CBD in region of the duodenal bulb/pancreatic head/uncinate process with enlargement of the pancreas and surrounding peripancreatic stranding. Findings consistent with acute pancreatitis likely secondary to impacted gallstone at common bile duct. - MRCP 12/01: Study was significantly limited by motion but findings were: acute pancreatitis, the CBD poorly visualized though suspected to be compressed by the pancreatitis. The punctate suspected CBD stone on CT cannot be adequately asessed on MRI due to motion. Cholelithiasis seen as multiple tiny stones. Diffuse periportal edema in the liver. Hepatic steatosis - RUQ ultrasound: cholelithiasis without cholecystitis or obstruction. She was placed on meropenem and levaquin at [facility] = Here WBC is 23k two days WBC is improving to 18k today Afebrile Tachycardic ID consulted and this is less likely infection and so meropenem and levaquin discontinued, patient doing well continues to improve, currently 15k and patient afebrile. (4) Diabetes Current Visit: Yes Status: Acute Assessment and Plan: ISS (5) Hypertension Current Visit: Yes Status: Acute Assessment and Plan: Takes lisinopril/HCTZ at home but will hold due to renal function. BP currently in acceptable limits. Will place prn labetolol. (6) Acute renal failure Current Visit: Yes Status: Acute Assessment and Plan: Based on history, this may have been due to dehydration with severe n/v. Continue IV fluid replacement if needed. However, patient required Lasix prior to arrival, will hold off on giving IV fluids right now. Prior to transfer, Creatinine at [facility] was 2.72 and gradually improved with IV fluids. Resolved. IV fluids held now bc patient now experiencing edema. (7) DVT prophylaxis Current Visit: Yes Status: Acute Assessment and Plan: Heparin SQ - Time Spent with Patient Total time spent is greater than 50% in coordination of care (as documented) at patient's floor/unit and/or counseling patient: Internal Medicine: Result - Labs CBC & Chem 7: 12/06/17 06:00 12/06/17 06:00 Labs: Short CBC 12/06/17 Range/Units 06:00 WBC 15.9 H (4.3-11.1) K/mcL Hgb 7.8 L (11.5-15.4) g/dL Hct 24.8 L (35.3-44.9) % Plt Count 347 (140-400) K/mcL Neutrophils # 13.1 H (1.6-8.9) K/mcL BMP 12/06/17 06:00 Sodium 138 Potassium 3.7 Chloride 108 H Carbon Dioxide 23 BUN 23 Creatinine 1.19 Glucose 164 H Calcium 8.3 L - ABG Interpretation ABG results: PT/INR, D-dimer PT 15.5 Seconds (9.4-12.1) H 12/03/17 16:41 Consult Discharge Plan - Plan Referrals: Carol Hurd, PARTNERSHIP MANAGER [Primary Care Provider] - (2) Intractable nausea and vomiting Qualifiers: Vomiting type: unspecified Qualified Code(s): R11.2 - Nausea with vomiting, unspecified (3) Leukocytosis Qualifiers: Leukocytosis type: unspecified Qualified Code(s): D72.829 - Elevated white blood cell count, unspecified (4) Diabetes Qualifiers: Diabetes mellitus type: type 2 Diabetes mellitus half-way insulin use: with intermodal truck driver use Diabetes mellitus complication status: with unspecified complications Qualified Code(s): E11.8 - Type 2 diabetes mellitus with unspecified complications; Z79.4 - [facility] (current) use of insulin (5) Hypertension Qualifiers: Hypertension type: essential hypertension Qualified Code(s): I10 - Essential (primary) hypertension (6) Acute renal failure Qualifiers: Acute renal failure type: unspecified Qualified Code(s): N17.9 - Acute kidney failure, unspecified
[2017-12-06] MEDS: *HR* Promethazine 25 MG/ML VIAL IVP PRN (13:02)
--- NOTE | 2017-12-06 18:48 | General Surgery Consult Note ---
Date of Encounter: 12/06/17 Time of Encounter: 18:30 Assessment and Plan (1) Gallstone pancreatitis Current Visit: Yes Status: Acute Urgent laparoscopic cholecystectomy and cholangiogram will not improve the patient's pain. Convalescent lap scopic cholecystectomy will prevent further injury from migration of gallbladder stones into the common bile duct and subsequent obstruction of the pancreatic duct causing further pancreatitis. The degree of peripancreatic inflammation is significant and I think she would benefit from a convalescent period to recover prior to elective cholecystectomy. History of Present Illness Consult date: 12/06/17 Reason for consult: abdominal pain History of present illness: The patient is a 62-year-old female who has had pain for more than 2 weeks. She sought evaluation at [facility] in [place]. She was diagnosed with severe pancreatitis as well as cholelithiasis. There was CAT scan evidence of choledocholithiasis. She was transferred to [facility] for gastroenterology evaluation and possible ERCP. A follow-up by MRCP failed to demonstrate the distal common bile duct stone. There is no evidence of jaundice or biliary obstruction. The patient continues to have epigastric and bilateral upper quadrant pain. No nausea or vomiting today. She was originally evaluated by surgery at [place] by Dr. Damon. The concern was that the patient will require ERCP to remove the distal common bile duct stone to allow the pancreatitis to resolve prior to convalescent cholecystectomy to prevent further injury from gallstone migration in the common bile duct. Since no stone was identified on MRCP, ERCP was not recommended. I personally reviewed the CAT scan films. She has significant peripancreatic inflammatory changes and even though her amylase and lipase levels are reduced, she still may be in the acute phase of inflammation. At this point I would not recommend laparoscopic cholecystectomy. I would allow a period of convalescence certainly 2-3 weeks prior to laparoscopic cholecystectomy, cholangiogram. This can be done by Dr. Damon [facility] or I can perform this procedure here at [place]. I gave both options to the patient. I will talk her again tomorrow Past Med Surg Social Fam HX - Past Medical History Medical history: arthritis, CHF, coronary artery disease, diabetes, GERD, hypertension Additional medical history: cataract removal, tonsil removal Psychiatric history: no psych history - Past Surgical History Surgical History: - Social History Smoking Status: Former smoker Smokeless Tobacco Status: No Alcohol use: none Drug use: none Medications and Allergies Gluc 2Kcl/Chondr/Rivas Hy/Hy AC [Glucosamine & Chondroitin Cap] 1 each PO DAILY 12/03/17 [History] Lisinopril/Hydrochlorothiazide [Zestoretic 20-25 mg Tablet] 1 each PO DAILY [History] glipiZIDE [Glipizide] 10 mg PO DAILY 12/03/17 [History] metFORMIN [Glucophage] 1,000 mg PO BID 12/03/17 [History] 3 Allergy/AdvReac Type Severity Reaction Status Date / Time diphenhydramine Allergy Hives Verified 12/03/17 15:08 [From Benadryl] morphine Allergy Hives Verified 12/03/17 15:08 Penicillins Allergy Hives Verified 12/03/17 15:08 Review of Systems All systems PM: The remainder of the systems were reviewed and are negative General Surgery Exam Initial Vital Signs Temp Pulse Resp BP Pulse Ox 97.3 F L 100 20 137/76 96 12/03/17 15:14 12/03/17 15:14 12/03/17 15:14 12/03/17 15:14 12/03/17 15:14 - General physical appearance well developed, well nourished, no distress, obese - Respiratory normal expansion, normal respiratory effort, clear to percussion, clear to auscultation - Cardiovascular Cardiovascular exam: Present: RRR, no murmurs/rubs/gallops - Abdomen Abdomen general surgery: Present: bowel sounds present, soft Abdominal Tenderness: Present: epigastic (Mild epigastric pain with no guarding or rebound) - Integumentary Integumentary general surgery: Present: warm and dry (No evidence of jaundice), no abnormal pigmentation - Neurologic Present: CN 2-12 grossly intact, normal coordination, normal sensation - Psychiatric Psychiatric general surgery: Present: appropriate, oriented to person, oriented to place, oriented to time, speech is normal, memory intact Exam Initial Vital Signs Temp Pulse Resp BP Pulse Ox 97.3 F L 100 20 137/76 96 12/03/17 15:14 12/03/17 15:14 12/03/17 15:14 12/03/17 15:14 12/03/17 15:14 Results - Labs 12/06/17 06:00 12/06/17 06:00 Abnormal lab results WBC 15.9 K/mcL (4.3-11.1) H 12/06/17 06:00 RBC 2.82 M/mcL (3.82-4.97) L 12/06/17 06:00 Hgb 7.8 g/dL (11.5-15.4) L 12/06/17 06:00 Hct 24.8 % (35.3-44.9) L 12/06/17 06:00 MCH 27.7 pg (28.0-33.3) L 12/06/17 06:00 MCHC 31.5 g/dL (31.6-35.5) L 12/06/17 06:00 Neutrophils # 13.1 K/mcL (1.6-8.9) H 12/06/17 06:00 PT 15.5 Seconds (9.4-12.1) H 12/03/17 16:41 Chloride 108 mEq/L (98-107) H 12/06/17 06:00 Est GFR ( Amer) 56 (> 60) L 12/06/17 06:00 Est GFR (Non-Af Amer) 46 (> 60) L 12/06/17 06:00 Glucose 164 mg/dL (70-105) H 12/06/17 06:00 POC Glucose 215 mg/dL (70-99) H 12/06/17 16:10 Calcium 8.3 mg/dL (8.6-10.3) L 12/06/17 06:00 Alkaline Phosphatase 126 Units/L (34-104) H 12/04/17 04:55 C-Reactive Protein > 300 mg/L (Less than 10) H 12/04/17 04:55 Serum Total Protein 5.8 g/dL (6.4-8.9) L 12/04/17 04:55 Albumin 2.7 g/dL (3.5-5.7) L 12/04/17 04:55 Albumin/Globulin Ratio 0.9 (1.1-2.2) L 12/04/17 04:55 HDL Cholesterol 30 mg/dL (40-59) L 12/03/17 16:41 Diabetes panel 12/06/17 Range/Units 06:00 Sodium 138 (136-145) mEq/L Potassium 3.7 (3.5-5.1) mEq/L Chloride 108 H (98-107) mEq/L Carbon Dioxide 23 (23-29) mEq/L BUN 23 (8-23) mg/dL Creatinine 1.19 (0.60-1.20) mg/dL Glucose 164 H (70-105) mg/dL Calcium 8.3 L (8.6-10.3) mg/dL Calcium panel 12/06/17 Range/Units 06:00 Calcium 8.3 L (8.6-10.3) mg/dL Pituitary panel 12/06/17 Range/Units 06:00 Sodium 138 (136-145) mEq/L Potassium 3.7 (3.5-5.1) mEq/L Chloride 108 H (98-107) mEq/L Carbon Dioxide 23 (23-29) mEq/L BUN 23 (8-23) mg/dL Creatinine 1.19 (0.60-1.20) mg/dL Glucose 164 H (70-105) mg/dL Calcium 8.3 L (8.6-10.3) mg/dL Adrenal panel 12/06/17 Range/Units 06:00 Sodium 138 (136-145) mEq/L Potassium 3.7 (3.5-5.1) mEq/L Chloride 108 H (98-107) mEq/L Carbon Dioxide 23 (23-29) mEq/L BUN 23 (8-23) mg/dL Creatinine 1.19 (0.60-1.20) mg/dL Glucose 164 H (70-105) mg/dL Calcium 8.3 L (8.6-10.3) mg/dL All other labs normal. - Imaging CT scan - abdomen: image reviewed (I personally reviewed the CAT scan and the abdomen. She has very significant peripancreatic inflammatory changes. There does not appear to be any saponification of the retroperitoneal fat. I was unable to visualize a distal common bile duct stone. She has multiple gallbladder stones.) Consult Discharge Plan - Plan Referrals: Carol Hurd, CORRECTION OFFICER SUPERVISOR [Primary Care Provider] -
[2017-12-06] MEDS: *HR* OxyCODONE Immed Rel 5 MG TABLET PO PRN (19:53)
[2017-12-07] MEDS: *HR* Heparin 5,000 UNIT/ML VIAL SQ SCH ×2 (05:17→17:31)
[2017-12-07 06:10] LABS: Basophils % 0.2 %; Eosinophils # 0.1 K/mcL (0.0-0.6); Eosinophils % 0.5 %; Hematocrit 24.6 % (35.3-44.9); Hemoglobin 7.7 g/dL (11.5-15.4); Immature Granulocytes % 1.2 % (0-4); Lymphocytes # 1.1 K/mcL (0.6-4.6); Lymphocytes % 8.5 %; Mean Corpuscular HGB Conc 31.3 g/dL (31.6-35.5); Mean Corpuscular Hemoglobin 27.6 pg (28.0-33.3); Mean Corpuscular Volume 88.2 fL (83.0-100.0); Mean Platelet Volume 10.6 fL (9.4-12.4); Monocytes # 0.8 K/mcL (0.0-1.3); Monocytes % 6.1 %; Neutrophils # 10.8 K/mcL (1.6-8.9); Platelet Count 337 K/mcL (140-400); Red Blood Count 2.79 M/mcL (3.82-4.97); Red Cell Distribution Width 13.1 % (11.5-14.5); Segmented Neutrophils % 83.5 %
[2017-12-07 06:29] LABS: BUN/Creatinine Ratio 18 (6-26); Blood Urea Nitrogen 19 mg/dL (8-23); Calcium 8.3 mg/dL (8.6-10.3); Carbon Dioxide 21 mEq/L (23-29); Chloride 106 mEq/L (98-107); Glucose 257 mg/dL (70-105); Osmolality,Calculated 297 (280-300); Potassium 3.8 mEq/L (3.5-5.1); Sodium 138 mEq/L (136-145); eGFR For Non-African Americans 54 (> 60)
[2017-12-07] MEDS: Insulin LISPRO 300 UNITS/3 ML VIAL SQ SCH ×4 (07:48→20:35)
--- NOTE | 2017-12-07 08:38 | General Surgery Progress Note ---
Date of Encounter: 12/07/17 Time of Encounter: 08:35 - Assessment and Plan (1) Gallstone pancreatitis Current Visit: Yes Status: Acute Recommend interval/convalescent cholecystectomy. Pt can follow up with her surgeon (Dr. Damon) in [facility] in aprox 4 weeks to schedule procedure. We did attempt to call his office to make an appointment, but got the answering machine. Please call [phone] to schedule follow-up Diet per primary team hospital course per primary team Surgery will sign off at this time. Thank you for allowing us participate in Ms Hathaway's care. Please call or reconsult if questions or needs arise. Subjective Patient reports: no new complaints, feels better, still having pain, pain is less, flatus, bowel movement, afebrile Objective Vital Signs - Last 8 Hours Temp Pulse Resp BP Pulse Ox 12/07/17 08:00 98.1 F 99 16 153/79 93 12/07/17 07:18 98.1 F 97 14 153/85 93 12/07/17 03:55 99.3 F 96 14 149/71 93 Intake and Output 12/06/17 12/07/17 12/07/17 23:59 07:59 15:59 Intake Total 1200 / 1200 0 / 0 Balance 1200 / 1200 0 / 0 Intake: IV Fluids 1000 / 1000 Lactated Ringers 1,000 ML @ 75 1000 / 1000 mls/hr IVC .[id number] [facility] Rx#: [id number] Oral 200 / 200 0 / 0 Other: Meal Dinner Percent of Meal Consumed 10% Stool Size Moderate Moderate Stool Consistency loose formed Stool Color Brown Brown # Voids 1 1 # Bowel Movements 0 1 Weight 95.9 kg Blood Glucose* 268 247 Patient Weight 12/07/17 23:59 Weight 95.9 kg - General physical appearance no distress, no pain - Eyes normal ocular movement - ENT normal mucosa, atraumatic, normocephalic - Neck Neck exam: trachea midline - Respiratory normal expansion, normal respiratory effort, clear to auscultation - Cardiovascular Cardiovascular exam: Present: RRR - Abdomen Abdomen: Present: bowel sounds present, soft, tender Abdominal Tenderness: RUQ, LUQ Hernia: none - Integumentary no rash - Neurologic normal coordination, normal sensation - Musculoskeletal normal gait, normal posture - Labs 12/07/17 05:25 12/07/17 05:25 Diabetes panel 12/07/17 Range/Units 05:25 Sodium 138 (136-145) mEq/L Potassium 3.8 (3.5-5.1) mEq/L Chloride 106 (98-107) mEq/L Carbon Dioxide 21 L (23-29) mEq/L BUN 19 (8-23) mg/dL Creatinine 1.04 (0.60-1.20) mg/dL Glucose 257 H (70-105) mg/dL Calcium 8.3 L (8.6-10.3) mg/dL Calcium panel 12/07/17 Range/Units 05:25 Calcium 8.3 L (8.6-10.3) mg/dL Pituitary panel 12/07/17 Range/Units 05:25 Sodium 138 (136-145) mEq/L Potassium 3.8 (3.5-5.1) mEq/L Chloride 106 (98-107) mEq/L Carbon Dioxide 21 L (23-29) mEq/L BUN 19 (8-23) mg/dL Creatinine 1.04 (0.60-1.20) mg/dL Glucose 257 H (70-105) mg/dL Calcium 8.3 L (8.6-10.3) mg/dL Adrenal panel 12/07/17 Range/Units 05:25 Sodium 138 (136-145) mEq/L Potassium 3.8 (3.5-5.1) mEq/L Chloride 106 (98-107) mEq/L Carbon Dioxide 21 L (23-29) mEq/L BUN 19 (8-23) mg/dL Creatinine 1.04 (0.60-1.20) mg/dL Glucose 257 H (70-105) mg/dL Calcium 8.3 L (8.6-10.3) mg/dL Consult Discharge Plan - Plan Instructions: Cholecystitis (DC), Low Fat Diet (DC) Referrals: Carol Hurd CNP [Primary Care Provider] - Rodriguez Damon [Other] (Please call [phone] to schedule follow-up (to schedule interval cholecystecomy) in aprox 4 weeks)
[2017-12-07] MEDS ORDERED: Insulin DETEMIR 100 UNIT/ML X5UNITS SQ ONE (10:51)
--- NOTE | 2017-12-07 11:02 | Internal Med Progress Note ---
Hospitalist Progress Note - Encounter Date of Encounter: 12/07/17 Time of Encounter: 11:04 - Subjective Interval History: No acute events. Appetite good. She would like to try food. - Exam Vitals: Temp Pulse Resp BP Pulse Ox 98.6 F 97 14 157/78 93 12/07/17 10:23 12/07/17 10:23 12/07/17 10:23 12/07/17 10:23 12/07/17 10:23 Exam: Gen: NAD CVS: tachycardic Lungs: Decreased air entry and lung dougherty, limited due to body habitus. fine rales Abd: + epigastric tenderness, normal bowel sounds. Ext; Edema is trace compared to yesterdays exam. - Assessment and Plan (1) Gallstone pancreatitis Current Visit: Yes Status: Acute Assessment and Plan: - CT abdomen/pelvis 11/30: Cholelithiasis with 2.5 mm stone at extrahepatic CBD in region of the duodenal bulb/pancreatic head/uncinate process with enlargement of the pancreas and surrounding peripancreatic stranding. Findings consistent with acute pancreatitis likely secondary to impacted gallstone at common bile duct. - MRCP 12/01: Study was significantly limited by motion but findings were: acute pancreatitis, the CBD poorly visualized though suspected to be compressed by the pancreatitis. The punctate suspected CBD stone on CT cannot be adequately asessed on MRI due to motion. Cholelithiasis seen as multiple tiny stones. Diffuse periportal edema in the liver. Hepatic steatosis - RUQ ultrasound: cholelithiasis without cholecystitis or obstruction. Gallstones and pancreatitis were seen on MRCP and CT images at [place]. Lipase was normal in 200s, but CT showed findings consistent with acute pancreatitis. Imaging as above showed cholelithiasis near pancreatitc duct. Surgeon at [place] requested transfer for GI eval for consideration of an ERCP GI consulted; no ERCP warranted at this time. There was concern prior to transfer that she had active infection/sepsis and so she was transferred on meropenem and Levaquin. ID was consulted and we held antibiotics and observed. WBC count decreased and she is afebrile off of antibiotics. She remains afebrile and WBC count continues to improve. Surgery here evaluated patient. Since pancreatitis is currently acute, she would benefit from in a few weeks once pancreatitis resolves. IV fluids held since yesterday because patient gets fluid overloaded. Appetite good so we will try to advance her diet . (2) Intractable nausea and vomiting Current Visit: Yes Status: Acute Assessment and Plan: Likely acute pancreatitis, possibly gastroparesis as well. Zofran prn. (3) Leukocytosis Current Visit: Yes Status: Acute Assessment and Plan: Possibly related to acute pancreatitis, unsure if infectious etiology involved. - Chest x-ray 11/29: showed clear lung apices with atelectasis. - CT abdomen/pelvis 11/30: Cholelithiasis with 2.5 mm stone at extrahepatic CBD in region of the duodenal bulb/pancreatic head/uncinate process with enlargement of the pancreas and surrounding peripancreatic stranding. Findings consistent with acute pancreatitis likely secondary to impacted gallstone at common bile duct. - MRCP 12/01: Study was significantly limited by motion but findings were: acute pancreatitis, the CBD poorly visualized though suspected to be compressed by the pancreatitis. The punctate suspected CBD stone on CT cannot be adequately asessed on MRI due to motion. Cholelithiasis seen as multiple tiny stones. Diffuse periportal edema in the liver. Hepatic steatosis - RUQ ultrasound: cholelithiasis without cholecystitis or obstruction. She was placed on meropenem and levaquin at [place] ID consulted and this is less likely infection and so meropenem and levaquin discontinued, patient doing well continues to improve, (4) Diabetes Current Visit: Yes Status: Acute Assessment and Plan: ISS She will advance diet today so will give 10 units Levemir now. (5) Hypertension Current Visit: Yes Status: Acute Assessment and Plan: Lisinopril/HCTZ at home was held on admission because of renal function. Okay to resume now that renal function is normal and BP slowly going back up. Continue prn labetolol. (6) Acute renal failure Current Visit: Yes Status: Acute Assessment and Plan: Based on history, this may have been due to dehydration with severe n/v. Continue IV fluid replacement if needed. However, patient required Lasix prior to arrival, will hold off on giving IV fluids right now. Prior to transfer, Creatinine at [place] was 2.72 and gradually improved with IV fluids. Resolved. IV fluids held now bc patient now experiencing edema. (7) DVT prophylaxis Current Visit: Yes Status: Acute Assessment and Plan: Heparin SQ - Time Spent with Patient Total time spent is greater than 50% in coordination of care (as documented) at patient's floor/unit and/or counseling patient: Internal Medicine: Result - Labs CBC & Chem 7: 12/07/17 05:25 12/07/17 05:25 Labs: Short CBC 12/07/17 Range/Units 05:25 WBC 12.9 H (4.3-11.1) K/mcL Hgb 7.7 L (11.5-15.4) g/dL Hct 24.6 L (35.3-44.9) % Plt Count 337 (140-400) K/mcL Neutrophils # 10.8 H (1.6-8.9) K/mcL BMP 12/07/17 05:25 Sodium 138 Potassium 3.8 Chloride 106 Carbon Dioxide 21 L BUN 19 Creatinine 1.04 Glucose 257 H Calcium 8.3 L - ABG Interpretation ABG results: PT/INR, D-dimer PT 15.5 Seconds (9.4-12.1) H 12/03/17 16:41 - Impressions Impressions Abdomen/Pelvis CT 12/04/17 10:27 IMPRESSION: 1. Progressing CT findings of acute pancreatitis. There is a 2 mm calculus pancreatic head. Cannot exclude distal common bile duct stone. 2. Cholelithiasis. 3. Bilateral pleural effusions with lower lobe atelectasis or infiltrate. 4. Diverticulosis. 5. Pelvic ascites. D/ / 12/04/2017 11:27:54 Calin Wilhelm MD / vernon Interpreting Provider: Calin Wilhelm MD Chest CT 12/04/17 10:27 IMPRESSION: 1. Small bilateral pleural effusions with lower lobe atelectasis or infiltrate right greater the left. D/ / 12/04/2017 11:22:14 Calin Wilhelm MD / ana Interpreting Provider: Calin Wilhelm MD Consult Discharge Plan - Plan Instructions: Cholecystitis (DC), Low Fat Diet (DC) Referrals: Rodriguez Damon [Other] (Please call [phone] to schedule follow-up (to schedule interval cholecystecomy) in aprox 4 weeks) Carol Hurd, SENIOR LEAD PROJECT MANAGER [Primary Care Provider] - (2) Intractable nausea and vomiting Qualifiers: Vomiting type: unspecified Qualified Code(s): R11.2 - Nausea with vomiting, unspecified (3) Leukocytosis Qualifiers: Leukocytosis type: unspecified Qualified Code(s): D72.829 - Elevated white blood cell count, unspecified (4) Diabetes Qualifiers: Diabetes mellitus type: type 2 Diabetes mellitus group home insulin use: with marine oil terminal superintendent use Diabetes mellitus complication status: with unspecified complications Qualified Code(s): E11.8 - Type 2 diabetes mellitus with unspecified complications; Z79.4 - residential (current) use of insulin (5) Hypertension Qualifiers: Hypertension type: essential hypertension Qualified Code(s): I10 - Essential (primary) hypertension (6) Acute renal failure Qualifiers: Acute renal failure type: unspecified Qualified Code(s): N17.9 - Acute kidney failure, unspecified
[2017-12-07 12:00] LABS: VBG Ionized Calcium 1.16 mmol/L (1.15-1.35)
[2017-12-07] MEDS: *HR* OxyCODONE Immed Rel 5 MG TABLET PO PRN (13:53)
[2017-12-07 15:47] LABS: Hematocrit 25.3 % (35.3-44.9)
[2017-12-07 16:28] LABS: Vitamin B12 826 pg/mL (250-1100)
[2017-12-07 16:36] LABS: Ferritin 468 ng/mL (10-120); Iron < 10 mcg/dL (50-170); Transferrin 127 mg/dL (203-362)
[2017-12-07 16:37] LABS: Folate > 22.3 ng/mL (3.0-16.0)
--- NOTE | 2017-12-07 17:01 | Infectious Disease Progress No ---
Date of Encounter: 12/07/17 Time of Encounter: 11:10 - Assessment and Plan (1) SIRS (systemic inflammatory response syndrome) Current Visit: Yes Status: Acute Likely secondary to acute pancreatitis. Improved. WBC trending down. Afebrile. (2) Gallstone pancreatitis Current Visit: Yes Status: Acute Pancreatitis is known to cause SIRS criteria including tachycardia and tachypnea and leukocytosis and fever Per guidelines there is no recommendation to treat unless you have necrosis with over 30% of the pancreas or pseudocyst. Continue to observe off antibiotics. GI consulted and following. General surgery consulted and following. No further recommendations from the ID team. We will sign off. Please re- consult if needed. (3) Intractable nausea and vomiting Current Visit: Yes Status: Acute Likely secondary to pancreatitis. Resolved. Qualifiers: Vomiting type: unspecified Qualified Code(s): R11.2 - Nausea with vomiting , unspecified (4) Acute renal failure Current Visit: Yes Status: Acute Likely pre-renal secondary to N/V. Resolved. Qualifiers: Acute renal failure type: unspecified Qualified Code(s): N17.9 - Acute kidney failure, unspecified (5) Allergy to antibiotic Current Visit: Yes Status: Acute Has penicillin allergy about 4 years ago. Tolerates amoxicillin. - Subjective Interval history: Patient seen and examined. No acute events noted overnight. Patient states she continues to have abdominal pain. Denies fevers, chills, or rigors. Denies chest pain, shortness of breath, or cough. Denies nausea, vomiting, or diarrhea. Reports epigastric and bilateral upper quadrant abdominal pain. Denies oral thrush or skin lesions. Denies urinary complaints. Started on clear liquid diet and tolerating okay. Infect Dis PN-Objective Data - Labs CBC & Chem 7: 12/08/17 07:15 12/08/17 07:15 Labs: Laboratory Results - last 24 hr 12/03/17 12/04/17 12/04/17 21:40 05:08 12:56 WBC RBC Hgb Hct MCV MCH MCHC RDW Plt Count MPV Immature Gran % Seg Neutrophils % Lymphocytes % Monocytes % Eosinophils % Basophils % Neutrophils # Lymphocytes # Monocytes # Eosinophils # Basophils # Sodium Potassium Chloride Carbon Dioxide BUN Creatinine Est GFR ( Amer) Est GFR (Non-Af Amer) BUN/Creatinine Ratio Glucose POC Glucose 228 H 239 H Calculated Osmolality Calcium Venous Ioniz Calcium Iron % Saturation Transferrin Ferritin Vitamin B12 Folate Mitochondria M2 IgG Ab 5.6 Blood Type Antibody Screen 12/06/17 12/07/17 12/07/17 19:57 05:25 05:25 WBC 12.9 H RBC 2.79 L Hgb 7.7 L Hct 24.6 L MCV 88.2 MCH 27.6 L MCHC 31.3 L RDW 13.1 Plt Count 337 MPV 10.6 Immature Gran % 1.2 Seg Neutrophils % 83.5 Lymphocytes % 8.5 Monocytes % 6.1 Eosinophils % 0.5 Basophils % 0.2 Neutrophils # 10.8 H Lymphocytes # 1.1 Monocytes # 0.8 Eosinophils # 0.1 Basophils # 0.0 Sodium 138 Potassium 3.8 Chloride 106 Carbon Dioxide 21 L BUN 19 Creatinine 1.04 Est GFR ( Amer) > 60 Est GFR (Non-Af Amer) 54 L BUN/Creatinine Ratio 18 Glucose 257 H POC Glucose 268 H Calculated Osmolality 297 Calcium 8.3 L Venous Ioniz Calcium Iron % Saturation Transferrin Ferritin Vitamin B12 Folate Mitochondria M2 IgG Ab Blood Type Antibody Screen 12/07/17 12/07/17 12/07/17 05:34 11:57 15:31 WBC RBC Hgb 8.0 L Hct 25.3 L MCV MCH MCHC RDW Plt Count MPV Immature Gran % Seg Neutrophils % Lymphocytes % Monocytes % Eosinophils % Basophils % Neutrophils # Lymphocytes # Monocytes # Eosinophils # Basophils # Sodium Potassium Chloride Carbon Dioxide BUN Creatinine Est GFR ( Amer) Est GFR (Non-Af Amer) BUN/Creatinine Ratio Glucose POC Glucose 247 H Calculated Osmolality Calcium Venous Ioniz Calcium 1.16 Iron % Saturation Transferrin Ferritin Vitamin B12 Folate Mitochondria M2 IgG Ab Blood Type Antibody Screen 12/07/17 12/07/17 12/07/17 15:31 15:31 15:31 WBC RBC Hgb Hct MCV MCH MCHC RDW Plt Count MPV Immature Gran % Seg Neutrophils % Lymphocytes % Monocytes % Eosinophils % Basophils % Neutrophils # Lymphocytes # Monocytes # Eosinophils # Basophils # Sodium Potassium Chloride Carbon Dioxide BUN Creatinine Est GFR ( Amer) Est GFR (Non-Af Amer) BUN/Creatinine Ratio Glucose POC Glucose Calculated Osmolality Calcium Venous Ioniz Calcium Iron < 10 L % Saturation TNP Transferrin 127 L Ferritin 468 H Vitamin B12 826 Folate > 22.3 H Mitochondria M2 IgG Ab Blood Type O POSITIVE Antibody Screen NEGATIVE Cultures: Cultures 12/03/17 16:39 Blood Culture - Preliminary Peripheral Venipuncture Culture is incubating and being continuously monitored for growth. Final report to follow. 12/03/17 16:44 Blood Culture - Preliminary Peripheral Venipuncture Culture is incubating and being continuously monitored for growth. Final report to follow. - Impressions Impressions Abdomen/Pelvis CT 12/04/17 10:27 IMPRESSION: 1. Progressing CT findings of acute pancreatitis. There is a 2 mm calculus pancreatic head. Cannot exclude distal common bile duct stone. 2. Cholelithiasis. 3. Bilateral pleural effusions with lower lobe atelectasis or infiltrate. 4. Diverticulosis. 5. Pelvic ascites. D/ / 12/04/2017 11:27:54 Calin Wilhelm MD / vernon Interpreting Provider: Calin Wilhelm MD Chest CT 12/04/17 10:27 IMPRESSION: 1. Small bilateral pleural effusions with lower lobe atelectasis or infiltrate right greater the left. D/ / 12/04/2017 11:22:14 Calin Wilhelm MD / ana Interpreting Provider: Calin Wilhelm MD Exam - Constitutional Vitals: Temp Pulse Resp BP Pulse Ox 99 F 93 16 134/83 94 12/07/17 14:00 12/07/17 14:00 12/07/17 14:00 12/07/17 14:00 12/07/17 14:00 General appearance: cooperative, no acute distress, obese - Head Head exam: Present: atraumatic, normal inspection, normocephalic - Eye Eye exam: Present: EOMI, normal appearance, PERRL Pupils: Present: normal accommodation - ENT ENT exam: Present: mucous membranes moist - Neck Neck exam: Present: normal inspection - Respiratory Respiratory exam: Present: CTAB. Absent: rales, respiratory distress, rhonchi, wheezes - Cardiovascular Cardiovascular exam: Present: RRR, +S1, +S2 - GI/Abdominal GI/Abdominal exam: Present: distended (obese), normal bowel sounds, soft, tenderness (Generalized) - Extremities Exam Extremities exam: Present: normal inspection. Absent: joint swelling, pedal edema, tenderness - Neurological Exam Neurological exam: Present: alert, oriented X3, no focal deficits - Psychiatric Psychiatric exam: Present: normal affect, normal mood - Skin Skin exam: Present: dry, intact, normal color, warm Consult Discharge Plan - Plan Instructions: Cholecystitis (DC), Low Fat Diet (DC) Referrals: Rodriguez Damon [Other] (Please call [phone] to schedule follow-up (to schedule interval cholecystecomy) in aprox 4 weeks) Carol Hurd, AIR TOOL OPERATOR [Primary Care Provider] - - Attending Attestation I examined this patient and my medical decision-making was reviewed with the Resident Physician. I agree with the documented findings, disposition and treatment plan as described except to the extent set forth below.
[2017-12-07] MEDS: traMADol 50 MG TABLET PO PRN (19:31)
[2017-12-07] MEDS: Insulin DETEMIR 100 UNIT/ML X5UNITS SQ SCH (20:35)
[2017-12-08] MEDS: *HR* Heparin 5,000 UNIT/ML VIAL SQ SCH ×2 (05:23→17:25)
[2017-12-08 07:49] LABS: Basophils % 0.2 %; Eosinophils # 0.1 K/mcL (0.0-0.6); Eosinophils % 0.9 %; Hemoglobin 7.8 g/dL (11.5-15.4); Immature Granulocytes % 1.2 % (0-4); Lymphocytes # 1.2 K/mcL (0.6-4.6); Mean Corpuscular HGB Conc 31.2 g/dL (31.6-35.5); Mean Corpuscular Hemoglobin 27.2 pg (28.0-33.3); Mean Corpuscular Volume 87.1 fL (83.0-100.0); Mean Platelet Volume 10.4 fL (9.4-12.4); Monocytes # 0.6 K/mcL (0.0-1.3); Monocytes % 6.2 %; Neutrophils # 8.1 K/mcL (1.6-8.9); Platelet Count 373 K/mcL (140-400); Red Blood Count 2.87 M/mcL (3.82-4.97); Red Cell Distribution Width 12.9 % (11.5-14.5); Segmented Neutrophils % 79.5 %
[2017-12-08] MEDS: Insulin DETEMIR 100 UNIT/ML X5UNITS SQ SCH ×2 (08:00→21:10)
[2017-12-08] MEDS: Insulin LISPRO 300 UNITS/3 ML VIAL SQ SCH ×4 (08:04→21:07)
[2017-12-08 08:08] LABS: BUN/Creatinine Ratio 17 (6-26); Blood Urea Nitrogen 15 mg/dL (8-23); Calcium 8.4 mg/dL (8.6-10.3); Carbon Dioxide 26 mEq/L (23-29); Chloride 104 mEq/L (98-107); Glucose 243 mg/dL (70-105); Osmolality,Calculated 297 (280-300); Potassium 3.4 mEq/L (3.5-5.1); Sodium 139 mEq/L (136-145); eGFR For Non-African Americans > 60 (> 60)
[2017-12-08] MEDS ORDERED: 0.9 % Sodium Chloride 1,000 ML IVC SCH (11:30)
[2017-12-08] MEDS ORDERED: Iron Sucrose Complex 200 MG in 0.9 % Sodium Chloride 100 ML IVPB SCH (11:30)
[2017-12-08] MEDS: OXYCODONE Oral CONC 10 MG/0.5 ML ORAL.SYG SL PRN (11:50)
--- NOTE | 2017-12-08 17:44 | Internal Med Progress Note ---
Hospitalist Progress Note - Encounter Date of Encounter: 12/08/17 Time of Encounter: 17:44 - Subjective Interval History: No acute events. Only ate 25% of food yesterday and this AM she doesn't have much of an appetite. Nurse reports she is not asking for pain medication even though rating pain 11/16. However, this breakfast she is eating a little more than yesterday - Exam Vitals: Temp Pulse Resp BP Pulse Ox 98.3 F 83 16 113/76 95 12/08/17 15:30 12/08/17 15:30 12/08/17 15:30 12/08/17 15:30 12/08/17 15:30 Exam: Gen: NAD CVS: tachycardic Lungs: Decreased air entry and lung dougherty, limited due to body habitus. fine rales Abd: + epigastric tenderness, normal bowel sounds. Ext; Edema is trace compared to yesterdays exam. - Assessment and Plan (1) Gallstone pancreatitis Current Visit: Yes Status: Acute Assessment and Plan: - CT abdomen/pelvis 11/30: Cholelithiasis with 2.5 mm stone at extrahepatic CBD in region of the duodenal bulb/pancreatic head/uncinate process with enlargement of the pancreas and surrounding peripancreatic stranding. Findings consistent with acute pancreatitis likely secondary to impacted gallstone at common bile duct. - MRCP 12/01: Study was significantly limited by motion but findings were: acute pancreatitis, the CBD poorly visualized though suspected to be compressed by the pancreatitis. The punctate suspected CBD stone on CT cannot be adequately asessed on MRI due to motion. Cholelithiasis seen as multiple tiny stones. Diffuse periportal edema in the liver. Hepatic steatosis - RUQ ultrasound: cholelithiasis without cholecystitis or obstruction. Gallstones and pancreatitis were seen on MRCP and CT images at [place]. Lipase was normal in 200s, but CT showed findings consistent with acute pancreatitis. Imaging as above showed cholelithiasis near pancreatitc duct. Surgeon at [place] requested transfer for GI eval for consideration of an ERCP GI consulted here; no ERCP warranted at this time. There was concern prior to transfer that she had active infection/sepsis and so she was transferred on meropenem and Levaquin. ID was consulted and we held antibiotics and observed. WBC count decreased and she is afebrile off of antibiotics. She remains afebrile and WBC count continues to improve. Surgery here evaluated patient. Since pancreatitis is currently acute, she would benefit from in a few weeks once pancreatitis resolves. IV fluids held since she was fluid overloaded. Continue to advance diet. Anticipate if diet continues to improve that she will be discharged tomorrow. (2) Intractable nausea and vomiting Current Visit: Yes Status: Acute Assessment and Plan: Likely acute pancreatitis, possibly gastroparesis as well. Zofran prn. (3) Leukocytosis Current Visit: Yes Status: Acute Assessment and Plan: Possibly related to acute pancreatitis, unsure if infectious etiology involved. - Chest x-ray 11/29: showed clear lung apices with atelectasis. - CT abdomen/pelvis 11/30: Cholelithiasis with 2.5 mm stone at extrahepatic CBD in region of the duodenal bulb/pancreatic head/uncinate process with enlargement of the pancreas and surrounding peripancreatic stranding. Findings consistent with acute pancreatitis likely secondary to impacted gallstone at common bile duct. - MRCP 12/01: Study was significantly limited by motion but findings were: acute pancreatitis, the CBD poorly visualized though suspected to be compressed by the pancreatitis. The punctate suspected CBD stone on CT cannot be adequately asessed on MRI due to motion. Cholelithiasis seen as multiple tiny stones. Diffuse periportal edema in the liver. Hepatic steatosis - RUQ ultrasound: cholelithiasis without cholecystitis or obstruction. She was placed on meropenem and levaquin at [place] ID consulted and this is less likely infection and so meropenem and levaquin discontinued, patient doing well continues to improve, (4) Diabetes Current Visit: Yes Status: Acute Assessment and Plan: ISS She will advance diet today so will give 10 units Levemir now. (5) Hypertension Current Visit: Yes Status: Acute Assessment and Plan: Lisinopril/HCTZ at home was held on admission because of renal function. Okay to resume now that renal function is normal and BP slowly going back up. Continue prn labetolol. (6) Acute renal failure Current Visit: Yes Status: Acute Assessment and Plan: Based on history, this may have been due to dehydration with severe n/v. Continue IV fluid replacement if needed. However, patient required Lasix prior to arrival, will hold off on giving IV fluids right now. Prior to transfer, Creatinine at [place] was 2.72 and gradually improved with IV fluids. Resolved. IV fluids held now bc patient now experiencing edema. (7) DVT prophylaxis Current Visit: Yes Status: Acute Assessment and Plan: Heparin SQ - Time Spent with Patient Total time spent is greater than 50% in coordination of care (as documented) at patient's floor/unit and/or counseling patient: Internal Medicine: Result - Labs CBC & Chem 7: 12/08/17 07:15 12/08/17 07:15 Labs: Short CBC 12/08/17 Range/Units 07:15 WBC 10.1 (4.3-11.1) K/mcL Hgb 7.8 L (11.5-15.4) g/dL Hct 25.0 L (35.3-44.9) % Plt Count 373 (140-400) K/mcL Neutrophils # 8.1 (1.6-8.9) K/mcL BMP 12/08/17 07:15 Sodium 139 Potassium 3.4 L Chloride 104 Carbon Dioxide 26 BUN 15 Creatinine 0.88 Glucose 243 H Calcium 8.4 L - ABG Interpretation ABG results: PT/INR, D-dimer PT 15.5 Seconds (9.4-12.1) H 12/03/17 16:41 Consult Discharge Plan - Plan Instructions: Cholecystitis (DC), Low Fat Diet (DC) Referrals: Rodriguez Damon [Other] (Please call [phone] to schedule follow-up (to schedule interval cholecystecomy) in aprox 4 weeks) Carol Hurd, FOOT PRESS OPERATOR [Primary Care Provider] - (2) Intractable nausea and vomiting Qualifiers: Vomiting type: unspecified Qualified Code(s): R11.2 - Nausea with vomiting, unspecified (3) Leukocytosis Qualifiers: Leukocytosis type: unspecified Qualified Code(s): D72.829 - Elevated white blood cell count, unspecified (4) Diabetes Qualifiers: Diabetes mellitus type: type 2 Diabetes mellitus detention insulin use: with meterman use Diabetes mellitus complication status: with unspecified complications Qualified Code(s): E11.8 - Type 2 diabetes mellitus with unspecified complications; Z79.4 - director long term care (current) use of insulin (5) Hypertension Qualifiers: Hypertension type: essential hypertension Qualified Code(s): I10 - Essential (primary) hypertension (6) Acute renal failure Qualifiers: Acute renal failure type: unspecified Qualified Code(s): N17.9 - Acute kidney failure, unspecified
[2017-12-08] MEDS ORDERED: Ringers Solution, Lactated 1,000 ML IVC SCH (18:00)
[2017-12-08] MEDS: traMADol 50 MG TABLET PO PRN (18:35)
[2017-12-09 05:47] LABS: Basophils % 0.2 %; Eosinophils # 0.1 K/mcL (0.0-0.6); Eosinophils % 1.3 %; Hematocrit 24.7 % (35.3-44.9); Hemoglobin 7.7 g/dL (11.5-15.4); Immature Granulocytes % 0.9 % (0-4); Lymphocytes # 1.3 K/mcL (0.6-4.6); Lymphocytes % 15.9 %; Mean Corpuscular HGB Conc 31.2 g/dL (31.6-35.5); Mean Corpuscular Hemoglobin 27.5 pg (28.0-33.3); Mean Corpuscular Volume 88.2 fL (83.0-100.0); Mean Platelet Volume 10.6 fL (9.4-12.4); Monocytes # 0.6 K/mcL (0.0-1.3); Monocytes % 7.3 %; Neutrophils # 6.3 K/mcL (1.6-8.9); Platelet Count 386 K/mcL (140-400); Red Cell Distribution Width 12.9 % (11.5-14.5); Segmented Neutrophils % 74.4 %
[2017-12-09 05:57] LABS: BUN/Creatinine Ratio 14 (6-26); Blood Urea Nitrogen 12 mg/dL (8-23); Calcium 8.1 mg/dL (8.6-10.3); Carbon Dioxide 29 mEq/L (23-29); Chloride 104 mEq/L (98-107); Glucose 140 mg/dL (70-105); Osmolality,Calculated 294 (280-300); Potassium 3.2 mEq/L (3.5-5.1); Sodium 141 mEq/L (136-145); eGFR For Non-African Americans > 60 (> 60)
[2017-12-09] MEDS: *HR* Heparin 5,000 UNIT/ML VIAL SQ SCH ×2 (06:33→17:43)
[2017-12-09] MEDS: Insulin LISPRO 300 UNITS/3 ML VIAL SQ SCH ×4 (08:56→21:38)
[2017-12-09] MEDS: Insulin DETEMIR 100 UNIT/ML X5UNITS SQ SCH ×2 (10:41→21:03)
[2017-12-09] MEDS ORDERED: 0.9 % Sodium Chloride 250 ML ONE ×2 (11:26→14:27)
[2017-12-09] MEDS: OXYCODONE Oral CONC 10 MG/0.5 ML ORAL.SYG SL PRN (11:28)
--- NOTE | 2017-12-09 12:42 | Internal Med Progress Note ---
Hospitalist Progress Note - Encounter Date of Encounter: 12/09/17 Time of Encounter: 12:36 - Subjective Interval History: No acute events. 12/08: Only ate 25% of food yesterday and this AM she doesn't have much of an appetite. Nurse reports she is not asking for pain medication even though rating pain 11/16. However, this breakfast she is eating a little more than yesterday 12/09: patient only had half of her oatmeal, was unable to tolerate any more breakfast than that. - Exam Vitals: Temp Pulse Resp BP Pulse Ox 98.4 F 78 18 137/79 95 12/09/17 12:12/09/17 12:12/09/17 12:12/09/17 12:12/09/17 12:01 Exam: Gen: NAD CVS: tachycardic Lungs: Decreased air entry and lung dougherty, limited due to body habitus. fine rales Abd: + epigastric tenderness - tenderness is unchanged, normal bowel sounds. Ext; Edema is trace compared to yesterdays exam. - Assessment and Plan (1) Gallstone pancreatitis Current Visit: Yes Status: Acute Assessment and Plan: - CT abdomen/pelvis 11/30: Cholelithiasis with 2.5 mm stone at extrahepatic CBD in region of the duodenal bulb/pancreatic head/uncinate process with enlargement of the pancreas and surrounding peripancreatic stranding. Findings consistent with acute pancreatitis likely secondary to impacted gallstone at common bile duct. - MRCP 12/01: Study was significantly limited by motion but findings were: acute pancreatitis, the CBD poorly visualized though suspected to be compressed by the pancreatitis. The punctate suspected CBD stone on CT cannot be adequately asessed on MRI due to motion. Cholelithiasis seen as multiple tiny stones. Diffuse periportal edema in the liver. Hepatic steatosis - RUQ ultrasound: cholelithiasis without cholecystitis or obstruction. Gallstones and pancreatitis were seen on MRCP and CT images at [facility]. Lipase was normal in 200s, but CT showed findings consistent with acute pancreatitis. Imaging as above showed cholelithiasis near pancreatitc duct. Surgeon at [facility] requested transfer for GI eval for consideration of an ERCP GI consulted here; no ERCP warranted at this time. There was concern prior to transfer that she had active infection/sepsis and so she was transferred on meropenem and Levaquin. ID was consulted and we held antibiotics and observed. WBC count decreased and she is afebrile off of antibiotics. She remains afebrile and WBC count continues to improve. Surgery here evaluated patient. Since pancreatitis is currently acute, she would benefit from in a few weeks once pancreatitis resolves. IV fluids held since she was fluid overloaded. Continue to advance diet. 12/09: diet not improving. Currently receiving PRBC for anemia. Will likely need to resume IV fluids afterwords. Will discuss with GI. (2) Intractable nausea and vomiting Current Visit: Yes Status: Acute Assessment and Plan: Likely acute pancreatitis, possibly gastroparesis as well. - glucose better controlled but symptoms still present. Zofran prn. (3) Leukocytosis Current Visit: Yes Status: Acute Assessment and Plan: Possibly related to acute pancreatitis, unsure if infectious etiology involved. - Chest x-ray 11/29: showed clear lung apices with atelectasis. - CT abdomen/pelvis 11/30: Cholelithiasis with 2.5 mm stone at extrahepatic CBD in region of the duodenal bulb/pancreatic head/uncinate process with enlargement of the pancreas and surrounding peripancreatic stranding. Findings consistent with acute pancreatitis likely secondary to impacted gallstone at common bile duct. - MRCP 12/01: Study was significantly limited by motion but findings were: acute pancreatitis, the CBD poorly visualized though suspected to be compressed by the pancreatitis. The punctate suspected CBD stone on CT cannot be adequately asessed on MRI due to motion. Cholelithiasis seen as multiple tiny stones. Diffuse periportal edema in the liver. Hepatic steatosis - RUQ ultrasound: cholelithiasis without cholecystitis or obstruction. She was placed on meropenem and levaquin at [place] ID consulted and this is less likely infection and so meropenem and levaquin discontinued, patient doing well continues to improve, (4) Diabetes Current Visit: Yes Status: Acute Assessment and Plan: ISS Levemir (5) Hypertension Current Visit: Yes Status: Acute Assessment and Plan: Lisinopril/HCTZ at home was held on admission because of renal function. Okay to resume now that renal function is normal and BP slowly going back up. Continue prn labetolol. (6) Acute renal failure Current Visit: Yes Status: Acute Assessment and Plan: Based on history, this may have been due to dehydration with severe n/v. Continue IV fluid replacement if needed. However, patient required Lasix prior to arrival, will hold off on giving IV fluids right now. Prior to transfer, Creatinine at [place] was 2.72 and gradually improved with IV fluids. Resolved. IV fluids held now bc patient now experiencing edema. (7) DVT prophylaxis Current Visit: Yes Status: Acute Assessment and Plan: Heparin SQ - Time Spent with Patient Total time spent is greater than 50% in coordination of care (as documented) at patient's floor/unit and/or counseling patient: Internal Medicine: Result - Labs CBC & Chem 7: 12/09/17 04:39 12/09/17 04:39 Labs: Short CBC 12/09/17 Range/Units 04:39 WBC 8.4 (4.3-11.1) K/mcL Hgb 7.7 L (11.5-15.4) g/dL Hct 24.7 L (35.3-44.9) % Plt Count 386 (140-400) K/mcL Neutrophils # 6.3 (1.6-8.9) K/mcL BMP 12/09/17 04:39 Sodium 141 Potassium 3.2 L Chloride 104 Carbon Dioxide 29 BUN 12 Creatinine 0.84 Glucose 140 H Calcium 8.1 L - ABG Interpretation ABG results: PT/INR, D-dimer PT 15.5 Seconds (9.4-12.1) H 12/03/17 16:41 Consult Discharge Plan - Plan Instructions: Cholecystitis (DC), Low Fat Diet (DC) Referrals: Rodriguez Damon [Other] (Please call [phone] to schedule follow-up (to schedule interval cholecystecomy) in aprox 4 weeks) Carol Hurd, [employer] [Primary Care Provider] - (2) Intractable nausea and vomiting Qualifiers: Vomiting type: unspecified Qualified Code(s): R11.2 - Nausea with vomiting, unspecified (3) Leukocytosis Qualifiers: Leukocytosis type: unspecified Qualified Code(s): D72.829 - Elevated white blood cell count, unspecified (4) Diabetes Qualifiers: Diabetes mellitus type: type 2 Diabetes mellitus jail insulin use: with terminal operator use Diabetes mellitus complication status: with unspecified complications Qualified Code(s): E11.8 - Type 2 diabetes mellitus with unspecified complications; Z79.4 - oil heaterman (current) use of insulin (5) Hypertension Qualifiers: Hypertension type: essential hypertension Qualified Code(s): I10 - Essential (primary) hypertension (6) Acute renal failure Qualifiers: Acute renal failure type: unspecified Qualified Code(s): N17.9 - Acute kidney failure, unspecified
[2017-12-09] MEDS ORDERED: Isovue-370 500 ML INFUS..BTL IV ONE (15:03)
--- NOTE | 2017-12-09 15:07 | Gastroenterology Progress Note ---
Date of Encounter: 12/09/17 Time of Encounter: 14:00 - Assessment and plan (1) Gallstone pancreatitis Current Visit: Yes Status: Acute Assessment and plan: -Patient with gallstone pancreatitis . White count is improving also abdominal pain has improved some but still not able to eat and still has persistent abdominal pain. Not able to tolerate oral. Recommendation: CT of the abdomen with IV contrast to make sure patient do not have any post-pancreatitis complications - Time Spent With Patient Total time spent is greater than 50% in coordination of care (as documented) at patient's floor/unit and/or counseling patient: - Subjective Interval history: Patient complaining that she not able to tolerate oral feeding once she eats she feels very full. Still has abdominal pain and per patient it has improved from before. - Constitutional Vitals: Temp Pulse Resp BP Pulse Ox 98.8 F 94 16 131/82 95 12/09/17 14:58 12/09/17 14:34 12/09/17 14:58 12/09/17 14:58 12/09/17 12:01 General appearance: Present: cooperative, A&O X 3, no acute distress, answers questions appropriately - GI/Abdominal Additional comments: Tenderness in the epigastric upper abdominal area Results - Labs CBC & Chem 7: 12/09/17 04:39 12/09/17 04:39 Labs: Last Result Calcium 8.1 mg/dL (8.6-10.3) L 12/09/17 04:39 Iron < 10 mcg/dL (50-170) L 12/07/17 15:31 % Saturation TNP 12/07/17 15:31 Transferrin 127 mg/dL (203-362) L 12/07/17 15:31 Ferritin 468 ng/mL (10-120) H 12/07/17 15:31 C-Reactive Protein > 300 mg/L (Less than 10) H 12/04/17 04:55 Triglycerides 114 mg/dL (< 150) 12/03/17 16:41 Vitamin B12 826 pg/mL (250-1100) 12/07/17 15:31 Folate > 22.3 ng/mL (3.0-16.0) H 12/07/17 15:31 Entire Visit Hgb 7.7 g/dL (11.5-15.4) L 12/09/17 04:39 Hct 24.7 % (35.3-44.9) L 12/09/17 04:39 PT 15.5 Seconds (9.4-12.1) H 12/03/17 16:41 Ferritin 468 ng/mL (10-120) H 12/07/17 15:31 Total Bilirubin 0.3 mg/dL (0.3-1.0) 12/04/17 04:55 AST 17 Units/L (13-39) 12/04/17 04:55 ALT 22 Units/L (7-52) 12/04/17 04:55 Lipase 18 Units/L (11-82) 12/04/17 04:55 Folate > 22.3 ng/mL (3.0-16.0) H 12/07/17 15:31 - ABG ABG results: PT/INR, D-dimer PT 15.5 Seconds (9.4-12.1) H 12/03/17 16:41 Consult Discharge Plan - Plan Instructions: Cholecystitis (DC), Low Fat Diet (DC) Referrals: Rodriguez Damon [Other] (Please call [phone] to schedule follow-up (to schedule interval cholecystecomy) in aprox 4 weeks) Carol Hurd, [employer] [Primary Care Provider] -
[2017-12-09] MEDS: traMADol 50 MG TABLET PO PRN (21:13)
[2017-12-10] MEDS: Ondansetron 4 MG/2 ML VIAL IVP PRN ×3 (01:12→20:42)
[2017-12-10 04:27] LABS: Basophils % 0.2 %; Eosinophils # 0.1 K/mcL (0.0-0.6); Eosinophils % 1.1 %; Hematocrit 30.7 % (35.3-44.9); Immature Granulocytes % 0.9 % (0-4); Lymphocytes # 1.3 K/mcL (0.6-4.6); Lymphocytes % 14.6 %; Mean Corpuscular HGB Conc 31.6 g/dL (31.6-35.5); Mean Corpuscular Volume 88.5 fL (83.0-100.0); Mean Platelet Volume 10.6 fL (9.4-12.4); Monocytes # 0.7 K/mcL (0.0-1.3); Monocytes % 7.9 %; Neutrophils # 6.8 K/mcL (1.6-8.9); Platelet Count 365 K/mcL (140-400); Red Blood Count 3.47 M/mcL (3.82-4.97); Segmented Neutrophils % 75.3 %
[2017-12-10 04:28] LABS: Hemoglobin 9.7 g/dL (11.5-15.4)
[2017-12-10 04:46] LABS: BUN/Creatinine Ratio 14 (6-26); Blood Urea Nitrogen 11 mg/dL (8-23); Carbon Dioxide 29 mEq/L (23-29); Chloride 101 mEq/L (98-107); Glucose 112 mg/dL (70-105); Osmolality,Calculated 290 (280-300); Sodium 140 mEq/L (136-145); eGFR For Non-African Americans > 60 (> 60)
[2017-12-10] MEDS: *HR* Heparin 5,000 UNIT/ML VIAL SQ SCH ×2 (05:55→17:32)
[2017-12-10] MEDS: Insulin LISPRO 300 UNITS/3 ML VIAL SQ SCH ×4 (08:46→20:50)
[2017-12-10 09:00] LABS: INR 1.4; Prothrombin Time 15.4 Seconds (9.4-12.1)
[2017-12-10 09:15] LABS: Albumin 2.7 g/dL (3.5-5.7); Albumin/Globulin Ratio 0.8 (1.1-2.2); Bilirubin,Direct 0.1 mg/dL (0.0-0.2); Bilirubin,Indirect 0.3 mg/dL (0.0-1.2); Bilirubin,Total 0.4 mg/dL (0.3-1.0); Globulin 3.5 g/dL (2.4-3.5); Magnesium 1.3 mg/dL (1.6-2.6); Phosphorous 3.9 mg/dL (2.7-4.5); Total Protein 6.2 g/dL (6.4-8.9)
[2017-12-10] MEDS: Insulin DETEMIR 100 UNIT/ML X5UNITS SQ SCH (10:50)
--- NOTE | 2017-12-10 11:19 | Internal Med Progress Note ---
Hospitalist Progress Note - Encounter Date of Encounter: 12/10/17 Time of Encounter: 11:24 - Subjective Interval History: No acute events. Tenderness present. Denies fevers/chills. - Exam Vitals: Temp Pulse Resp BP Pulse Ox 98.6 F 71 14 146/81 95 12/10/17 10:30 12/10/17 10:30 12/10/17 10:30 12/10/17 10:30 12/10/17 10:30 Exam: Gen: NAD CVS: tachycardic Lungs: Decreased air entry and lung dougherty, limited due to body habitus. fine rales Abd: + epigastric tenderness, normal bowel sounds. Ext; Edema is slightly improved - Assessment and Plan (1) Gallstone pancreatitis Current Visit: Yes Status: Acute Assessment and Plan: - CT abdomen/pelvis 11/30: Cholelithiasis with 2.5 mm stone at extrahepatic CBD in region of the duodenal bulb/pancreatic head/uncinate process with enlargement of the pancreas and surrounding peripancreatic stranding. Findings consistent with acute pancreatitis likely secondary to impacted gallstone at common bile duct. - MRCP 12/01: Study was significantly limited by motion but findings were: acute pancreatitis, the CBD poorly visualized though suspected to be compressed by the pancreatitis. The punctate suspected CBD stone on CT cannot be adequately asessed on MRI due to motion. Cholelithiasis seen as multiple tiny stones. Diffuse periportal edema in the liver. Hepatic steatosis - RUQ ultrasound: cholelithiasis without cholecystitis or obstruction. Gallstones and pancreatitis were seen on MRCP and CT images at [facility]. Lipase was normal in 200s, but CT showed findings consistent with acute pancreatitis. Imaging as above showed cholelithiasis near pancreatitc duct. Surgeon at [facility] requested transfer for GI eval for consideration of an ERCP GI consulted here; no ERCP warranted at this time. There was concern prior to transfer that she had active infection/sepsis and so she was transferred on meropenem and Levaquin. ID was consulted and we held antibiotics and observed. WBC count decreased and she is afebrile off of antibiotics. She remains afebrile and WBC is within normal limits Surgery here evaluated patient. Since pancreatitis is currently acute, she would benefit from in a few weeks once pancreatitis resolves. Repeat CT 12/09 as below: 1. Numerous large intra- and peripancreatic fluid collections secondary to ongoing pancreatitis with pseudocyst formation. The largest collection measures 11.1 cm in length. There is evidence of pancreatic necrosis, although the acute inflammatory changes of the pancreas have improved when compared with the previous exam. 2. Dilatation of the common bile duct and gallbladder distension, most likely due to mass effect on the central CBD from the pancreatic fluid collections. 3. Periportal edema, likely secondary to hepatocellular dysfunction. 4. Stable small left pleural effusion. Trace right pleural effusion, which is improved. 5. Small pelvic free fluid. 6. Fluid within the endometrial canal, which is abnormal if the patient is post menopausal. Further evaluation with nonemergent pelvic ultrasound can be obtained if indicated. NPO for today GI recommendations appreciated. (2) Leukocytosis Current Visit: Yes Status: Acute Assessment and Plan: Possibly related to acute pancreatitis, unsure if infectious etiology involved. - Chest x-ray 11/29: showed clear lung apices with atelectasis. - CT abdomen/pelvis 11/30: Cholelithiasis with 2.5 mm stone at extrahepatic CBD in region of the duodenal bulb/pancreatic head/uncinate process with enlargement of the pancreas and surrounding peripancreatic stranding. Findings consistent with acute pancreatitis likely secondary to impacted gallstone at common bile duct. - MRCP 12/01: Study was significantly limited by motion but findings were: acute pancreatitis, the CBD poorly visualized though suspected to be compressed by the pancreatitis. The punctate suspected CBD stone on CT cannot be adequately asessed on MRI due to motion. Cholelithiasis seen as multiple tiny stones. Diffuse periportal edema in the liver. Hepatic steatosis - RUQ ultrasound: cholelithiasis without cholecystitis or obstruction. She was placed on meropenem and levaquin at [place] ID consulted and this is less likely infection and so meropenem and levaquin discontinued, patient doing well continues to improve, (3) Diabetes Current Visit: Yes Status: Acute Assessment and Plan: ISS Levemir (4) Hypertension Current Visit: Yes Status: Acute Assessment and Plan: Lisinopril/HCTZ at home was held on admission because of renal function. Okay to resume now that renal function is normal and BP slowly going back up. Continue prn labetolol. (5) Acute renal failure Current Visit: Yes Status: Acute Assessment and Plan: Based on history, this may have been due to dehydration with severe n/v. Continue IV fluid replacement if needed. However, patient required Lasix prior to arrival, will hold off on giving IV fluids right now. Prior to transfer, Creatinine at [place] was 2.72 and gradually improved with IV fluids. Resolved. IV fluids held now bc patient now experiencing edema. (6) DVT prophylaxis Current Visit: Yes Status: Acute Assessment and Plan: Heparin SQ - Time Spent with Patient Total time spent is greater than 50% in coordination of care (as documented) at patient's floor/unit and/or counseling patient: Internal Medicine: Result - Labs CBC & Chem 7: 12/10/17 03:19 12/10/17 03:19 Labs: Short CBC 12/10/17 Range/Units 03:19 WBC 9.0 (4.3-11.1) K/mcL Hgb 9.7 L D (11.5-15.4) g/dL Hct 30.7 L (35.3-44.9) % Plt Count 365 (140-400) K/mcL Neutrophils # 6.8 (1.6-8.9) K/mcL BMP 12/10/17 03:19 Sodium 140 Potassium 3.0 L Chloride 101 Carbon Dioxide 29 BUN 11 Creatinine 0.77 Glucose 112 H Calcium 8.0 L Liver Function 12/10/17 Range/Units 08:39 Total Bilirubin 0.4 (0.3-1.0) mg/dL Direct Bilirubin 0.1 (0.0-0.2) mg/dL AST 30 (13-39) Units/L ALT 39 (7-52) Units/L Alkaline Phosphatase 149 H (34-104) Units/L Albumin 2.7 L (3.5-5.7) g/dL - ABG Interpretation ABG results: PT/INR, D-dimer PT 15.4 Seconds (9.4-12.1) H 12/10/17 08:39 - Impressions Impressions Abdomen/Pelvis CT 12/09/17 16:00 IMPRESSION: 1. Numerous large intra- and peripancreatic fluid collections secondary to ongoing pancreatitis with pseudocyst formation. The largest collection measures 11.1 cm in length. There is evidence of pancreatic necrosis, although the acute inflammatory changes of the pancreas have improved when compared with the previous exam. 2. Dilatation of the common bile duct and gallbladder distension, most likely due to mass effect on the central CBD from the pancreatic fluid collections. 3. Periportal edema, likely secondary to hepatocellular dysfunction. 4. Stable small left pleural effusion. Trace right pleural effusion, which is improved. 5. Small pelvic free fluid. 6. Fluid within the endometrial canal, which is abnormal if the patient is post menopausal. Further evaluation with nonemergent pelvic ultrasound can be obtained if indicated. D/ / 12/09/2017 19:24:18 Michi Sullivan MD / padmini Interpreting Provider: Michi Sullivan MD Consult Discharge Plan - Plan Instructions: Cholecystitis (DC), Low Fat Diet (DC) Referrals: Rodriguez Damon [Other] (Please call [phone] to schedule follow-up (to schedule interval cholecystecomy) in aprox 4 weeks) Carol Hurd, [employer] [Primary Care Provider] - (2) Leukocytosis Qualifiers: Leukocytosis type: unspecified Qualified Code(s): D72.829 - Elevated white blood cell count, unspecified (3) Diabetes Qualifiers: Diabetes mellitus type: type 2 Diabetes mellitus manager long term care insulin use: with manager long term care use Diabetes mellitus complication status: with unspecified complications Qualified Code(s): E11.8 - Type 2 diabetes mellitus with unspecified complications; Z79.4 - half-way (current) use of insulin (4) Hypertension Qualifiers: Hypertension type: essential hypertension Qualified Code(s): I10 - Essential (primary) hypertension (5) Acute renal failure Qualifiers: Acute renal failure type: unspecified Qualified Code(s): N17.9 - Acute kidney failure, unspecified
[2017-12-10] MEDS: traMADol 50 MG TABLET PO PRN (13:28)
--- NOTE | 2017-12-10 13:30 | Gastroenterology Progress Note ---
<Gail Vela - Last Filed: 12/10/17 13:52> Date of Encounter: 12/10/17 Time of Encounter: 13:27 - Assessment and plan (1) Gallstone pancreatitis Current Visit: Yes Status: Acute Assessment and plan: Patient is currently being treated for gallstone pancreatitis in the severe form. Abdominal CT demonstrated peripancreatic fluid collections and pancreatic necrosis. WBC WNL improved Abdominal exam is soft, significant for diffusely tender still. Patient reports slight improvement of abdominal pain Plan: continue NPO. During EGD tomorrow will place a naso-duodenal tube for 4 to 6 weeks. Continue IV fluids and pain management (2) Anemia Current Visit: Yes Status: Acute Assessment and plan: Normocephalic anemia. There is concern for possible GIB with decreased hemoglobin 9.7 (yesterday 7.7) after patient received 2 units of PRBC. Patient denies melena, hematachezia, hematemesis. Patient is hemodynamically stable. No obvious active bleeding. iron<10 transferrin 127 (low) ferritin 468 (high) Plan: plan for EGD tomorrow to evaluate for GIB. Monitor H&H. Qualifiers: Qualified Code(s): D64.9 - Anemia, unspecified - Time Spent With Patient Total time spent is greater than 50% in coordination of care (as documented) at patient's floor/unit and/or counseling patient: - Subjective Interval history: Patient seen and examined at bedside. She is alert and oriented times 3. She reports minimal improvement of abdominal pain. She admits to nausea and vomiting last night. She has had a bowel movement. She denies chills fever, melena, hematachezia, hematemesis. - Constitutional Vitals: Temp Pulse Resp BP Pulse Ox 98.6 F 71 14 146/81 95 12/10/17 10:30 12/10/17 10:30 12/10/17 10:30 12/10/17 10:30 12/10/17 10:30 General appearance: Present: cooperative, A&O X 3, no acute distress, answers questions appropriately Exam: Gen.: Vitals noted. No acute distress. AAOx3 HEENT: oropharynx clear, Normocephalic, atraumatic Cardiac: RRR, no murmur, +S1/S2 Pulmonary: CTA bilaterally, no wheezes, rales or rhonchi, equal chest expansion Abdomen: soft, diffusely tender, Bowel sounds noted, no guarding MSK: ROM intact, no joint swelling noted Extremities: no BLE edema, nontender calf, no cyanosis or clubbing Neuro: A&Ox3, moves all extremities, no focal deficits Psych: Appropriate mood and behavior Results - Labs CBC & Chem 7: 12/10/17 03:19 10 03:19 Labs: Last Result Calcium 8.0 mg/dL (8.6-10.3) L 12/10/17 03:19 Iron < 10 mcg/dL (50-170) L 12/07/17 15:31 % Saturation TNP 12/07/17 15:31 Transferrin 127 mg/dL (203-362) L 12/07/17 15:31 Ferritin 468 ng/mL (10-120) H 12/07/17 15:31 C-Reactive Protein > 300 mg/L (Less than 10) H 12/04/17 04:55 Triglycerides 114 mg/dL (< 150) 12/03/17 16:41 Vitamin B12 826 pg/mL (250-1100) 12/07/17 15:31 Folate > 22.3 ng/mL (3.0-16.0) H 12/07/17 15:31 Entire Visit Hgb 9.7 g/dL (11.5-15.4) L D 12/10/17 03:19 Hct 30.7 % (35.3-44.9) L 12/10/17 03:19 PT 15.4 Seconds (9.4-12.1) H 12/10/17 08:39 Ferritin 468 ng/mL (10-120) H 12/07/17 15:31 Total Bilirubin 0.4 mg/dL (0.3-1.0) 12/10/17 08:39 AST 30 Units/L (13-39) 12/10/17 08:39 ALT 39 Units/L (7-52) 12/10/17 08:39 Lipase 67 Units/L (11-82) 12/10/17 08:39 Folate > 22.3 ng/mL (3.0-16.0) H 12/07/17 15:31 - ABG ABG results: PT/INR, D-dimer PT 15.4 Seconds (9.4-12.1) H 12/10/17 08:39 - Impressions Impressions Abdomen/Pelvis CT 12/09/17 16:00 IMPRESSION: 1. Numerous large intra- and peripancreatic fluid collections secondary to ongoing pancreatitis with pseudocyst formation. The largest collection measures 11.1 cm in length. There is evidence of pancreatic necrosis, although the acute inflammatory changes of the pancreas have improved when compared with the previous exam. 2. Dilatation of the common bile duct and gallbladder distension, most likely due to mass effect on the central CBD from the pancreatic fluid collections. 3. Periportal edema, likely secondary to hepatocellular dysfunction. 4. Stable small left pleural effusion. Trace right pleural effusion, which is improved. 5. Small pelvic free fluid. 6. Fluid within the endometrial canal, which is abnormal if the patient is post menopausal. Further evaluation with nonemergent pelvic ultrasound can be obtained if indicated. D/ / 12/09/2017 19:24:18 Michi Sullivan MD / padmini Interpreting Provider: Michi Sullivan MD Consult Discharge Plan - Plan Instructions: Cholecystitis (DC), Low Fat Diet (DC) Referrals: Rodriguez Damon [Other] (Please call [phone] to schedule follow-up (to schedule interval cholecystecomy) in aprox 4 weeks) Carol Hurd, [facility] [employer] [facility] [Primary Care Provider] - <AlanveronicaVenitaIten - Last Filed: 12/10/17 17:56> Date of Encounter: 12/10/17 - Assessment and plan (1) Gallstone pancreatitis Current Visit: Yes Status: Acute - Time Spent With Patient Total time spent is greater than 50% in coordination of care (as documented) at patient's floor/unit and/or counseling patient: - Constitutional Vitals: Temp Pulse Resp BP Pulse Ox 98.6 F 75 14 149/81 93 12/10/17 15:16 12/10/17 15:16 12/10/17 15:16 12/10/17 15:16 12/10/17 15:16 Results - Labs CBC & Chem 7: 12/10/17 03:19 12/10/17 03:19 Labs: Last Result Calcium 8.0 mg/dL (8.6-10.3) L 12/10/17 03:19 Iron < 10 mcg/dL (50-170) L 12/07/17 15:31 % Saturation TNP 12/07/17 15:31 Transferrin 127 mg/dL (203-362) L 12/07/17 15:31 Ferritin 468 ng/mL (10-120) H 12/07/17 15:31 C-Reactive Protein > 300 mg/L (Less than 10) H 12/04/17 04:55 Triglycerides 114 mg/dL (< 150) 12/03/17 16:41 Vitamin B12 826 pg/mL (250-1100) 12/07/17 15:31 Folate > 22.3 ng/mL (3.0-16.0) H 12/07/17 15:31 Entire Visit Hgb 9.7 g/dL (11.5-15.4) L D 12/10/17 03:19 Hct 30.7 % (35.3-44.9) L 12/10/17 03:19 PT 15.4 Seconds (9.4-12.1) H 12/10/17 08:39 Ferritin 468 ng/mL (10-120) H 12/07/17 15:31 Total Bilirubin 0.4 mg/dL (0.3-1.0) 12/10/17 08:39 AST 30 Units/L (13-39) 12/10/17 08:39 ALT 39 Units/L (7-52) 12/10/17 08:39 Lipase 67 Units/L (11-82) 12/10/17 08:39 Folate > 22.3 ng/mL (3.0-16.0) H 12/07/17 15:31 - ABG ABG results: PT/INR, D-dimer PT 15.4 Seconds (9.4-12.1) H 12/10/17 08:39 - Impressions Impressions Abdomen/Pelvis CT 12/09/17 16:00 IMPRESSION: 1. Numerous large intra- and peripancreatic fluid collections secondary to ongoing pancreatitis with pseudocyst formation. The largest collection measures 11.1 cm in length. There is evidence of pancreatic necrosis, although the acute inflammatory changes of the pancreas have improved when compared with the previous exam. 2. Dilatation of the common bile duct and gallbladder distension, most likely due to mass effect on the central CBD from the pancreatic fluid collections. 3. Periportal edema, likely secondary to hepatocellular dysfunction. 4. Stable small left pleural effusion. Trace right pleural effusion, which is improved. 5. Small pelvic free fluid. 6. Fluid within the endometrial canal, which is abnormal if the patient is post menopausal. Further evaluation with nonemergent pelvic ultrasound can be obtained if indicated. D/ / 12/09/2017 19:24:18 Michi Sullivan MD / padmini Interpreting Provider: Michi Sullivan MD - Attending Attestation I have personally performed a face to face evaluation on this patient. I have reviewed and agree with the care plan. History and Exam by me shows: Patient seen with the Dr. Brand. Agree with her assessment and plan. Examination patient does has mild upper abdominal tenderness. Assessment: Patient with necrotizing pancreatitis with peripancreatic fluid collection. Plan ; nothing by mouth patient will have an NG placed in the morning for nasoduodenal feeding
[2017-12-10] MEDS: Pantoprazole 40 MG VIAL IVP SCH (20:38)
[2017-12-10] MEDS ORDERED: Acetaminophen IV 500 MG/50 ML INFUS..BTL IVPB ONE (21:37)
[2017-12-11 04:37] LABS: Basophils % 0.4 %; Eosinophils # 0.1 K/mcL (0.0-0.6); Eosinophils % 1.3 %; Hematocrit 29.6 % (35.3-44.9); Hemoglobin 9.3 g/dL (11.5-15.4); Immature Granulocytes % 0.7 % (0-4); Lymphocytes # 1.4 K/mcL (0.6-4.6); Lymphocytes % 16.4 %; Mean Corpuscular HGB Conc 31.4 g/dL (31.6-35.5); Mean Corpuscular Volume 89.2 fL (83.0-100.0); Mean Platelet Volume 10.6 fL (9.4-12.4); Monocytes # 0.6 K/mcL (0.0-1.3); Monocytes % 7.2 %; Neutrophils # 6.2 K/mcL (1.6-8.9); Platelet Count 357 K/mcL (140-400); Red Blood Count 3.32 M/mcL (3.82-4.97); Red Cell Distribution Width 13.1 % (11.5-14.5)
[2017-12-11 05:44] LABS: BUN/Creatinine Ratio 13 (6-26); Blood Urea Nitrogen 11 mg/dL (8-23); Calcium 8.2 mg/dL (8.6-10.3); Carbon Dioxide 29 mEq/L (23-29); Chloride 100 mEq/L (98-107); Glucose 127 mg/dL (70-105); Osmolality,Calculated 285 (280-300); Potassium 3.1 mEq/L (3.5-5.1); Sodium 137 mEq/L (136-145); eGFR For Non-African Americans > 60 (> 60)
[2017-12-11] MEDS: Famotidine 20 MG/2 ML VIAL IVP SCH ×2 (06:07→17:21)
[2017-12-11] MEDS: *HR* Heparin 5,000 UNIT/ML VIAL SQ SCH ×2 (06:07→17:21)
[2017-12-11] MEDS: Insulin LISPRO 300 UNITS/3 ML VIAL SQ SCH ×4 (09:43→23:49)
--- NOTE | 2017-12-11 09:45 | Gastroenterology Progress Note ---
<Gail Vela - Last Filed: 12/11/17 09:42> Date of Encounter: 12/11/17 Time of Encounter: 09:42 - Assessment and plan (1) Gallstone pancreatitis Current Visit: Yes Status: Acute Assessment and plan: Patient is currently being treated for gallstone pancreatitis in the severe form. Abdominal CT demonstrated peripancreatic fluid collections and pancreatic necrosis. WBC WNL improved Abdominal exam is soft, significant for diffusely tender still. Patient reports slight improvement of abdominal pain. Plan: She refused to have the EGD and nasoduodenal tube placed for enteral feeding today despite having risks and benefits explained to her. She needs nutrition and would prefer to have TPN. Continue NPO and picc line placed for TPN. (2) Anemia Current Visit: Yes Status: Acute Assessment and plan: Normocephalic anemia. There is concern for possible GIB with decreased hemoglobin 9.3 (yesterday 9.7) after patient received 2 units of PRBC. Patient denies melena, hematachezia, hematemesis. Patient is hemodynamically stable. No obvious active bleeding. iron<10 transferrin 127 (low) ferritin 468 (high) Plan: patient refused to have EGD done. Monitor H&H. Qualifiers: Qualified Code(s): D64.9 - Anemia, unspecified - Time Spent With Patient Total time spent is greater than 50% in coordination of care (as documented) at patient's floor/unit and/or counseling patient: - Subjective Interval history: Patient seen and examined at bedside. She is alert and oriented times 3. She refused to have the EGD and nasoduodenal tube placed today. She reports minimal improvement of abdominal pain. She denies chills fever, melena, hematachezia, hematemesis. - Constitutional Vitals: Temp Pulse Resp BP Pulse Ox 98.1 F 73 15 140/80 94 12/11/17 06:36 12/11/17 06:36 12/11/17 06:36 12/11/17 06:36 12/11/17 06:36 General appearance: Present: cooperative, A&O X 3, no acute distress, answers questions appropriately Exam: Gen.: Vitals noted. No acute distress. AAOx3 HEENT: oropharynx clear, Normocephalic, atraumatic Cardiac: RRR, no murmur, +S1/S2 Pulmonary: CTA bilaterally, no wheezes, rales or rhonchi, equal chest expansion Abdomen: soft, diffusely tender, Bowel sounds noted, no guarding MSK: ROM intact, no joint swelling noted Extremities: no BLE edema, nontender calf, no cyanosis or clubbing Neuro: A&Ox3, moves all extremities, no focal deficits Psych: Appropriate mood and behavior Results - Labs CBC & Chem 7: 12/11/17 04:00 12/11/17 04:00 Labs: Last Result Calcium 8.2 mg/dL (8.6-10.3) L 12/11/17 04:00 Iron < 10 mcg/dL (50-170) L 12/07/17 15:31 % Saturation TNP 12/07/17 15:31 Transferrin 127 mg/dL (203-362) L 12/07/17 15:31 Ferritin 468 ng/mL (10-120) H 12/07/17 15:31 C-Reactive Protein > 300 mg/L (Less than 10) H 12/04/17 04:55 Triglycerides 114 mg/dL (< 150) 12/03/17 16:41 Vitamin B12 826 pg/mL (250-1100) 12/07/17 15:31 Folate > 22.3 ng/mL (3.0-16.0) H 12/07/17 15:31 Entire Visit Hgb 9.3 g/dL (11.5-15.4) L 12/11/17 04:00 Hct 29.6 % (35.3-44.9) L 12/11/17 04:00 PT 15.4 Seconds (9.4-12.1) H 12/10/17 08:39 Ferritin 468 ng/mL (10-120) H 12/07/17 15:31 Total Bilirubin 0.4 mg/dL (0.3-1.0) 12/10/17 08:39 AST 30 Units/L (13-39) 12/10/17 08:39 ALT 39 Units/L (7-52) 12/10/17 08:39 Lipase 67 Units/L (11-82) 12/10/17 08:39 Folate > 22.3 ng/mL (3.0-16.0) H 12/07/17 15:31 - ABG ABG results: PT/INR, D-dimer PT 15.4 Seconds (9.4-12.1) H 12/10/17 08:39 Consult Discharge Plan - Plan Instructions: Cholecystitis (DC), Low Fat Diet (DC) Referrals: Rodriguez Damon [Other] (Please call [phone] to schedule follow-up (to schedule interval cholecystecomy) in aprox 4 weeks) Carol Hurd, [facility] [Primary Care Provider] - <Tien Farah - Last Filed: 12/11/17 12:51> Date of Encounter: 12/11/17 - Assessment and plan (1) Gallstone pancreatitis Current Visit: Yes Status: Acute - Time Spent With Patient Total time spent is greater than 50% in coordination of care (as documented) at patient's floor/unit and/or counseling patient: - Constitutional Vitals: Temp Pulse Resp BP Pulse Ox 98.5 F 73 15 136/74 94 12/11/17 10:04 12/11/17 10:04 12/11/17 10:04 12/11/17 10:04 12/11/17 10:04 Results - Labs CBC & Chem 7: 12/11/17 04:00 12/11/17 04:00 Labs: Last Result Calcium 8.2 mg/dL (8.6-10.3) L 12/11/17 04:00 Iron < 10 mcg/dL (50-170) L 12/07/17 15:31 % Saturation TNP 12/07/17 15:31 Transferrin 127 mg/dL (203-362) L 12/07/17 15:31 Ferritin 468 ng/mL (10-120) H 12/07/17 15:31 C-Reactive Protein > 300 mg/L (Less than 10) H 12/04/17 04:55 Triglycerides 114 mg/dL (< 150) 12/03/17 16:41 Vitamin B12 826 pg/mL (250-1100) 12/07/17 15:31 Folate > 22.3 ng/mL (3.0-16.0) H 12/07/17 15:31 Entire Visit Hgb 9.3 g/dL (11.5-15.4) L 12/11/17 04:00 Hct 29.6 % (35.3-44.9) L 12/11/17 04:00 PT 15.4 Seconds (9.4-12.1) H 12/10/17 08:39 Ferritin 468 ng/mL (10-120) H 12/07/17 15:31 Total Bilirubin 0.4 mg/dL (0.3-1.0) 12/10/17 08:39 AST 30 Units/L (13-39) 12/10/17 08:39 ALT 39 Units/L (7-52) 12/10/17 08:39 Lipase 67 Units/L (11-82) 12/10/17 08:39 Folate > 22.3 ng/mL (3.0-16.0) H 12/07/17 15:31 - ABG ABG results: PT/INR, D-dimer PT 15.4 Seconds (9.4-12.1) H 12/10/17 08:39 - Attending Attestation I examined this patient and my medical decision-making was reviewed with the Resident Physician. I agree with the documented findings, disposition and treatment plan as described except to the extent set forth below. Patient seen with Dr. Brand agree with her assessment and plan. Eaxm: does has epigastric tenderness. A:necrotizing acute pancreatitis with peripancreatic fluid collection. Pt not interested in enteric feeding. Rec: Nothing by mouth for now TPN. Risk of the TPN explained to the patient. She would rather have the TPN than the enteric feeding
[2017-12-11] MEDS: *HR* Promethazine 25 MG/ML VIAL IVP PRN ×2 (10:14→21:12)
[2017-12-11] MEDS ORDERED: Lidocaine -MPF 1% 5 ML AMPUL INFILT ONE (12:57)
--- NOTE | 2017-12-11 13:52 | Internal Med Progress Note ---
<Marjan Salguero - Last Filed: 12/11/17 15:54> Hospitalist Progress Note - Encounter Date of Encounter: 12/11/17 - Exam Vitals: Temp Pulse Resp BP Pulse Ox 98.5 F 81 15 141/72 95 12/11/17 14:03 12/11/17 14:03 12/11/17 14:03 12/11/17 14:03 12/11/17 14:03 - Assessment and Plan (1) Gallstone pancreatitis Current Visit: Yes Status: Acute (2) Diabetes Current Visit: Yes Status: Acute (3) Hypertension Current Visit: Yes Status: Acute (4) DVT prophylaxis Current Visit: Yes Status: Acute (5) Leukocytosis Current Visit: Yes Status: Acute (6) Acute renal failure Current Visit: Yes Status: Acute - Time Spent with Patient Total time spent is greater than 50% in coordination of care (as documented) at patient's floor/unit and/or counseling patient: Internal Medicine: Result - Labs CBC & Chem 7: 12/11/17 04:00 12/11/17 04:00 Labs: Short CBC 12/11/17 Range/Units 04:00 WBC 8.4 (4.3-11.1) K/mcL Hgb 9.3 L (11.5-15.4) g/dL Hct 29.6 L (35.3-44.9) % Plt Count 357 (140-400) K/mcL Neutrophils # 6.2 (1.6-8.9) K/mcL BMP 12/11/17 04:00 Sodium 137 Potassium 3.1 L Chloride 100 Carbon Dioxide 29 BUN 11 Creatinine 0.83 Glucose 127 H Calcium 8.2 L - ABG Interpretation ABG results: PT/INR, D-dimer PT 15.4 Seconds (9.4-12.1) H 12/10/17 08:39 Consult Discharge Plan - Plan Instructions: Cholecystitis (DC), Low Fat Diet (DC) Referrals: Rodriguez Damon [Other] (Please call [phone] to schedule follow-up (to schedule interval cholecystecomy) in aprox 4 weeks) Carol Hurd, PAINTER HELPER [Primary Care Provider] - - Attending Attestation The history, physical exam, and medical decision making was performed by the medical student Mahesh either while I was physically present and actively involved or I personally re-performed the exam and medical decision making. I have verified the accuracy of the medical student's documentation with regards to the history, physical exam findings, and medical decision making. Ms Hathaway was admitted 12/03/17 and has had a prolonged course for severe gallstone pancreatitis with pancreatic cyst and necrosis. Abdominal CT demonstrated peripancreatic fluid collections and pancreatic necrosis. GI has been following pt throughout admission. Surgery was consulted to assess for eed for cholecystectomy and recommend interval/convalescent cholecystectomy and is since signed off. GI continues to follow and recommended nasoduodenal tube placed for enteral feeding for 4-6 weeks which she has no declined, opting for TPN, but is not a candidate given no insurance and inability to afford private pay. She had a significant acute anemia which prompted concern for acute ugib and GI had plan to do egd 12/11, which she also later declined. This is a complex case given severity of her disease and social issues, as well as her reluctance to partake intreatment. This case has been discussed with case mangement whom is aware of barriers to continued treatment and discharge. Awake, resting in bed. Abd pain is improving, located in epigastric region, no radiation to back. Denies nausea, emesis, fevers or chills. gen- alert, awake,appears stated age eyes- pupils equal round , no scleral icterus cv- reg rate and rhythm, normal s1,s2, no murmurs appreciated, no le edema lungs- ctabl, no wheezing, rhonchi or crackles, normal resp effort on room air abd- soft, + tender epigastrum, no guarding, no rigidity, non distended, decreased bs skin- no rahs or jaundice neuro- AAOx3 Severe Gallstone Pancreatitis with pancreatic necrosis Gallstones and pancreatitis were seen on MRCP and CT images at [facility]. Lipase was normal in 200s, but CT showed findings consistent with acute pancreatitis. Imaging showed cholelithiasis near pancreatitc duct. Surgeon at [facility] requested transfer for GI eval for consideration of an ERCP GI consulted here; no ERCP warranted at that time. There was concern prior to transfer that she had active infection/sepsis and so she was transferred on meropenem and Levaquin. ID was consulted and we held antibiotics and observed. WBC count decreased and she is afebrile off of antibiotics. CT abdomen/pelvis 11/30: Cholelithiasis with 2.5 mm stone at extrahepatic CBD in region of the duodenal bulb/pancreatic head/uncinate process with enlargement of the pancreas and surrounding peripancreatic stranding. Findings consistent with acute pancreatitis likely secondary to impacted gallstone at common bile duct. MRCP 12/01: Study was significantly limited by motion but findings were: acute pancreatitis, the CBD poorly visualized though suspected to be compressed by the pancreatitis. The punctate suspected CBD stone on CT cannot be adequately asessed on MRI due to motion. Cholelithiasis seen as multiple tiny stones. Diffuse periportal edema in the liver. Hepatic steatosis RUQ ultrasound: cholelithiasis without cholecystitis or obstruction. Repeat CT 12/09 1. Numerous large intra- and peripancreatic fluid collections secondary to ongoing pancreatitis with pseudocyst formation. The largest collection measures 11.1 cm in length. There is evidence of pancreatic necrosis, although the acute inflammatory changes of the pancreas have improved when compared with the previous exam. 2. Dilatation of the common bile duct and gallbladder distension, most likely due to mass effect on the central CBD from the pancreatic fluid collections. 3. Periportal edema, likely secondary to hepatocellular dysfunction. 4. Stable small left pleural effusion. Trace right pleural effusion, which is improved. 5. Small pelvic free fluid. 6. Fluid within the endometrial canal, which is abnormal if the patient is post menopausal. Further evaluation with nonemergent pelvic ultrasound can be obtained if indicated. -pt refusing nasoduodenal tube -NOT a TPN candidate given no insurance and no ability to pay for it--hold on picc placement- updating GI to obtain recs re feeding this weekend on dc: can follow up with her surgeon (Dr. Damon) in [facility] in aprox 4 weeks to schedule procedure. Please call [phone] to schedule follow -up at time of dc Acute Anemia, Iron Deficiency, improving hgb concern for possible GIB with decreased hemoglobin, Patient denies melena, hematachezia, hematemesis. Patient is hemodynamically stable. No obvious active bleeding. iron studies were obtained gi wanted to do egd 12/11 and pt refused -cont to monitor hgb/hct Leukocytosis work up as per previous provider and with ID involved. No abx, resolved, bl cxs ngtd DM-ssi and accu checks HTN, BPs at goal- cont po meds and prn labetalol Diastolic CHF hx not in exacerbation Hyokalemia- replete IV today, cont to monitor Hypomagnesemia, repleted yesterday, cont to monitor and replete prn <Rex Hodges R - Last Filed: 12/11/17 17:20> Hospitalist Progress Note - Encounter Date of Encounter: 12/11/17 Time of Encounter: 13:40 - Subjective Interval History: Patient initially admitted 12 days ago to [facility] for nausea, vomiting, and diarrhea. Lipase was elevated at 253. There, a CT of the abdomen/pelvis and subsequent MRCP was performed which showed acute pancreatitis , likely secondary to 2.5 mm gallstone. At time of transfer, there was concern for possible infection/sepsis because she was febrile and had a white count of 22k. She was started on levaquin and merapenam. Patient was transfered to [place] for suspected CBD obstruction. GI reviewed MRCP and determined there was not obstruction of the CBD and ERCP was not recommended. The antibiotics were stopped, and patient has remained afebrile, and her white count has continued to downtrend. Since patient has been here, she had initially felt better and was tolerating oral intake. She subsequently lost her appetite and started having nausea and abdominal pain with food. A repeat CT with IV contrast was performed 12/09 which showed 11.1 cm pseudocyst and pancreatic necrosis. Since admission, patient's Hgb had decreased from 9.2 to 7.7. In the setting of her severe acute pancreatitis, upper GI bleed was suspected and 2 units of PRBC were given. Patient has been NPO since 12/10. GI had recommended EGD and placement of nasoduodenal tube for enteral feedings and to investigate a source for the suspected upper GI bleed. As of today, patient's Hgb has been stable. Patient refused both the EGD and the nasoduodenal tube placement. Today, patient states that she is feeling about the same as yesterday. She is still having abdominal pain that is diffuse and tender to palpation, but is worst in suprapubic region. She endorses nausea, but states that she has not had emesis today. Patient denies chest pain, shortness of breath, palpitations, dysuria, urinary hesitancy, urinary urgency, hematemasis, hematachezia, or melena. - Exam Vitals: Temp Pulse Resp BP Pulse Ox 98.5 F 73 15 136/74 94 12/11/17 10:04 12/11/17 10:04 12/11/17 10:04 12/11/17 10:04 12/11/17 10:04 Exam: Gen.: female lying in bed. Not in acute distress HEENT: mucous membranes dry. Cardiac: RRR, no murmur, +S1/S2 Pulmonary: CTA bilaterally Abdomen: soft, nondistended. Tender to palpation diffusely, worse in suprapubic region. BS present Extremities: no BLE edema, nontender calf, no cyanosis or clubbing Neuro: A&Ox3, moves all extremities, no focal deficits Psych: Appropriate mood and behavior - Assessment and Plan (1) Gallstone pancreatitis Current Visit: Yes Status: Acute Assessment and Plan: -CT 12/09 shows numerous intra and peripancreatic fluidcollections secondary to ongoing pancreatitis with pseudocyst formation. Largest collection is 11.1 cm. There is also evidence of pancreatic necrosis. It also showed dilation of the common bile duct secondary to mass effect on the central CBD from the pancreatic fluid collections. -RUQ US 12/02 showed cholelithiasis without cholecystisi or biliary obstruction -MRCP 12/01 did not show CBD obstruction -WBC 8.4, patient remains afebrile -Patient refused EGD with nasoduodenal tube placement for enteral feeding. Patient is not a candidate for TPN due to not having insurance and not being able to private pay Plan: -Keep patient NPO -GI consulted. Appreciate recommendations regarding re-feeding this weekend -Zofran prn for nausea -Oxycodone and tramadol prn for pain (2) Anemia Current Visit: Yes Status: Acute Assessment and Plan: -Patient's Hgb was 9.2 on admission. Went down to 7.7 by 12/09 -Suspect upper GI bleed. Patient denies hematemsis, hematochezia, melena -2 Units of PRBC were given 12/09. Hgb has remained stable -Iron <10, ferritin 468, transferrin 127 -Likely acute blood loss on chronic anemia of chronic disease -Currently hemodynamically stable -Patient refused EGD to look for source of upper GI bleed Plan: -Continue to monitor H/H and vital signs (3) Diabetes Current Visit: Yes Status: Acute Assessment and Plan: -Patient's glucose has been well controlled inpatient -Glucose reading this morning was 127 -Patient is still NPO Plan: -Continue low dose SSI -Accu checks Q6H (4) Hypertension Current Visit: Yes Status: Acute Assessment and Plan: -Patient's BP has been controlled while inpatient -Continue home medication lisinopril/HCTZ (5) Hypokalemia Current Visit: Yes Status: Acute Assessment and Plan: -Potassium 3.1 today -Replace potassium (6) Hypomagnesemia Current Visit: Yes Status: Acute Assessment and Plan: -Magnesium 1.3 yesterday -Replaced magnesium yesterday -Replace magnesium prn DVT Prophylaxis: -Currently patient is stable on heparin sq. If Hgb starts to decrease, will consider d/c heparin and starting SCD. - Time Spent with Patient Total time spent is greater than 50% in coordination of care (as documented) at patient's floor/unit and/or counseling patient: Internal Medicine: Result - Labs CBC & Chem 7: 12/11/17 04:00 12/11/17 04:00 Labs: Short CBC 12/11/17 Range/Units 04:00 WBC 8.4 (4.3-11.1) K/mcL Hgb 9.3 L (11.5-15.4) g/dL Hct 29.6 L (35.3-44.9) % Plt Count 357 (140-400) K/mcL Neutrophils # 6.2 (1.6-8.9) K/mcL BMP 12/11/17 04:00 Sodium 137 Potassium 3.1 L Chloride 100 Carbon Dioxide 29 BUN 11 Creatinine 0.83 Glucose 127 H Calcium 8.2 L - ABG Interpretation ABG results: PT/INR, D-dimer PT 15.4 Seconds (9.4-12.1) H 12/10/17 08:39 <Marjan Salguero M - Last Filed: 12/11/17 15:54> (2) Diabetes Qualifiers: Diabetes mellitus type: type 2 Diabetes mellitus middle or intermediate school principal insulin use: with long-term use Diabetes mellitus complication status: with unspecified complications Qualified Code(s): E11.8 - Type 2 diabetes mellitus with unspecified complications; Z79.4 - senior care (current) use of insulin (3) Hypertension Qualifiers: Hypertension type: essential hypertension Qualified Code(s): I10 - Essential (primary) hypertension (5) Leukocytosis Qualifiers: Leukocytosis type: unspecified Qualified Code(s): D72.829 - Elevated white blood cell count, unspecified (6) Acute renal failure Qualifiers: Acute renal failure type: unspecified Qualified Code(s): N17.9 - Acute kidney failure, unspecified <Rex Hodges R - Last Filed: 12/11/17 17:20> (3) Diabetes Qualifiers: Diabetes mellitus type: type 2 Diabetes mellitus long-term insulin use: with long-term use Diabetes mellitus complication status: with unspecified complications Qualified Code(s): E11.8 - Type 2 diabetes mellitus with unspecified complications; Z79.4 - senior care (current) use of insulin (4) Hypertension Qualifiers: Hypertension type: essential hypertension Qualified Code(s): I10 - Essential (primary) hypertension
[2017-12-11] MEDS: traMADol 50 MG TABLET PO PRN (16:38)
[2017-12-11] MEDS: Pantoprazole 40 MG VIAL IVP SCH (17:22)
[2017-12-12] MEDS: *HR* Promethazine 25 MG/ML VIAL IVP PRN ×2 (05:07→11:29)
[2017-12-12] MEDS: Insulin LISPRO 300 UNITS/3 ML VIAL SQ SCH ×3 (05:08→17:48)
[2017-12-12] MEDS: *HR* Heparin 5,000 UNIT/ML VIAL SQ SCH ×2 (05:11→17:48)
[2017-12-12 05:34] LABS: Basophils # 0.1 K/mcL (0.0-0.2); Basophils % 0.5 %; Eosinophils # 0.1 K/mcL (0.0-0.6); Eosinophils % 0.6 %; Hematocrit 33.6 % (35.3-44.9); Hemoglobin 10.4 g/dL (11.5-15.4); Immature Granulocytes % 0.7 % (0-4); Lymphocytes # 1.6 K/mcL (0.6-4.6); Lymphocytes % 12.4 %; Mean Corpuscular Hemoglobin 28.1 pg (28.0-33.3); Mean Corpuscular Volume 90.8 fL (83.0-100.0); Mean Platelet Volume 10.7 fL (9.4-12.4); Monocytes # 0.8 K/mcL (0.0-1.3); Monocytes % 5.9 %; Neutrophils # 10.2 K/mcL (1.6-8.9); Platelet Count 425 K/mcL (140-400); Red Cell Distribution Width 12.7 % (11.5-14.5); Segmented Neutrophils % 79.9 %
[2017-12-12 05:56] LABS: Alanine Aminotransferase 26 Units/L (7-52); Albumin 2.8 g/dL (3.5-5.7); Albumin/Globulin Ratio 0.8 (1.1-2.2); Alkaline Phosphatase 140 Units/L (34-104); Aspartate Amino Transferase 19 Units/L (13-39); BUN/Creatinine Ratio 15 (6-26); Bilirubin,Total 0.4 mg/dL (0.3-1.0); Blood Urea Nitrogen 13 mg/dL (8-23); Calcium 8.6 mg/dL (8.6-10.3); Carbon Dioxide 25 mEq/L (23-29); Chloride 98 mEq/L (98-107); Globulin 3.6 g/dL (2.4-3.5); Glucose 183 mg/dL (70-105); Magnesium 1.7 mg/dL (1.6-2.6); Osmolality,Calculated 287 (280-300); Phosphorous 4.1 mg/dL (2.7-4.5); Potassium 3.9 mEq/L (3.5-5.1); Sodium 136 mEq/L (136-145); Total Protein 6.4 g/dL (6.4-8.9); eGFR For Non-African Americans > 60 (> 60)
[2017-12-12] MEDS: Ondansetron 4 MG/2 ML VIAL IVP PRN ×2 (08:39→17:48)
[2017-12-12] MEDS: 0.9 % Sodium Chloride 1,000 ML IVC SCH ×2 (08:39→19:23)
[2017-12-12] MEDS: traMADol 50 MG TABLET PO PRN ×2 (11:29→19:40)
--- NOTE | 2017-12-12 11:45 | Internal Med Progress Note ---
<Marjan Salguero - Last Filed: 12/12/17 12:51> Hospitalist Progress Note - Encounter Date of Encounter: 12/12/17 - Exam Vitals: Temp Pulse Resp BP Pulse Ox 99.0 F 88 16 134/84 95 12/12/17 11:15 12/12/17 11:15 12/12/17 11:15 12/12/17 11:15 12/12/17 11:15 - Assessment and Plan (1) Gallstone pancreatitis Current Visit: Yes Status: Acute (2) Diabetes Current Visit: Yes Status: Acute (3) Hypertension Current Visit: Yes Status: Acute (4) DVT prophylaxis Current Visit: Yes Status: Acute (5) Leukocytosis Current Visit: Yes Status: Acute (6) Acute renal failure Current Visit: Yes Status: Acute - Time Spent with Patient Total time spent is greater than 50% in coordination of care (as documented) at patient's floor/unit and/or counseling patient: Internal Medicine: Result - Labs CBC & Chem 7: 12/12/17 05:00 12/12/17 05:00 Labs: Short CBC 12/12/17 Range/Units 05:00 WBC 12.8 H D (4.3-11.1) K/mcL Hgb 10.4 L (11.5-15.4) g/dL Hct 33.6 L (35.3-44.9) % Plt Count 425 H (140-400) K/mcL Neutrophils # 10.2 H (1.6-8.9) K/mcL BMP 12/12/17 05:00 Sodium 136 Potassium 3.9 Chloride 98 Carbon Dioxide 25 BUN 13 Creatinine 0.84 Glucose 183 H Calcium 8.6 Liver Function 12/12/17 Range/Units 05:00 Total Bilirubin 0.4 (0.3-1.0) mg/dL AST 19 (13-39) Units/L ALT 26 (7-52) Units/L Alkaline Phosphatase 140 H (34-104) Units/L Albumin 2.8 L (3.5-5.7) g/dL - ABG Interpretation ABG results: PT/INR, D-dimer PT 15.4 Seconds (9.4-12.1) H 12/10/17 08:39 Consult Discharge Plan - Plan Instructions: Cholecystitis (DC), Low Fat Diet (DC) Referrals: Rodriguez Damon [Other] (Please call [phone] to schedule follow-up (to schedule interval cholecystecomy) in aprox 4 weeks) Carol Hurd, SUKHJINDER [Primary Care Provider] - - Attending Attestation I examined this patient and my medical decision-making was reviewed with the Resident Physician Dr Mcelroy. I agree with the documented findings, disposition and treatment plan as described except to the extent set forth below. Ms Hathaway was admitted 12/03/17 and has had a prolonged course for severe gallstone pancreatitis with pancreatic cyst and necrosis. Abdominal CT demonstrated peripancreatic fluid collections and pancreatic necrosis. GI has been following pt throughout admission. Surgery was consulted to assess for eed for cholecystectomy and recommend interval/convalescent cholecystectomy and is since signed off. GI continues to follow and recommended nasoduodenal tube placed for enteral feeding for 4-6 weeks which she has no declined, opting for TPN, but is not a candidate given no insurance and inability to afford private pay. She had a significant acute anemia which prompted concern for acute ugib and GI had plan to do egd 12/11, which she also later declined. This is a complex case given severity of her disease and social issues, as well as her reluctance to partake intreatment. This case has been discussed with case mangement whom is aware of barriers to continued treatment and discharge. Awake, resting in bed. Abd located in epigastric region unchaged from yesterday , + nausea today and last night. single episode per pt bilious emesis overnight. Denies fevers or chills. She is up to date on plan regarding her care and further hospital discussion thursday and awaiting gi recs re feeding this gen- alert, awake,appears stated age eyes- pupils equal round , no scleral icterus cv- reg rate and rhythm, normal s1,s2, no murmurs appreciated, no le edema lungs- ctabl, no wheezing, rhonchi or crackles, normal resp effort on room air abd- soft, + tender epigastrum, no guarding, no rigidity, non distended, decreased bs skin- no rash or jaundice neuro- AAOx3 Severe Gallstone Pancreatitis with pancreatic necrosis Gallstones and pancreatitis were seen on MRCP and CT images at [facility]. Lipase was normal in 200s, but CT showed findings consistent with acute pancreatitis. Imaging showed cholelithiasis near pancreatitc duct. Surgeon at [facility] requested transfer for GI eval for consideration of an ERCP GI consulted here; no ERCP warranted at that time. There was concern prior to transfer that she had active infection/sepsis and so she was transferred on meropenem and Levaquin. ID was consulted and we held antibiotics and observed. WBC count decreased at that time off of antibiotics. CT abdomen/pelvis 11/30: Cholelithiasis with 2.5 mm stone at extrahepatic CBD in region of the duodenal bulb/pancreatic head/uncinate process with enlargement of the pancreas and surrounding peripancreatic stranding. Findings consistent with acute pancreatitis likely secondary to impacted gallstone at common bile duct. MRCP 12/01: Study was significantly limited by motion but findings were: acute pancreatitis, the CBD poorly visualized though suspected to be compressed by the pancreatitis. The punctate suspected CBD stone on CT cannot be adequately asessed on MRI due to motion. Cholelithiasis seen as multiple tiny stones. Diffuse periportal edema in the liver. Hepatic steatosis RUQ ultrasound: cholelithiasis without cholecystitis or obstruction. Repeat CT 12/09 1. Numerous large intra- and peripancreatic fluid collections secondary to ongoing pancreatitis with pseudocyst formation. The largest collection measures 11.1 cm in length. There is evidence of pancreatic necrosis, although the acute inflammatory changes of the pancreas have improved when compared with the previous exam. 2. Dilatation of the common bile duct and gallbladder distension, most likely due to mass effect on the central CBD from the pancreatic fluid collections. 3. Periportal edema, likely secondary to hepatocellular dysfunction. 4. Stable small left pleural effusion. Trace right pleural effusion, which is improved. 5. Small pelvic free fluid. 6. Fluid within the endometrial canal, which is abnormal if the patient is post menopausal. Further evaluation with nonemergent pelvic ultrasound can be obtained if indicated. -pt refusing nasoduodenal tube -NOT a TPN candidate given no insurance and no ability to pay for it--hold on picc placement- updating GI to obtain recs re feeding this weekend -12/12 wbc elevation to 12.8 though all lines increased and suspect she is beocming dehydrated on dc: can follow up with her surgeon (Dr. Damon) in [facility] in aprox 4 weeks to schedule procedure. Please call [phone] to schedule follow -up at time of dc Acute Anemia, Iron Deficiency, improving hgb concern for possible GIB with decreased hemoglobin, Patient denies melena, hematachezia, hematemesis. Patient is hemodynamically stable. No obvious active bleeding. iron studies were obtained gi wanted to do egd 12/11 and pt refused -cont to monitor hgb/hct Leukocytosis work up as per previous provider and with ID involved at that time. No abx, bl cxs ngtd, wbc 12.8 today and monitoring as above DM-ssi and accu checks, bs at goal HTN, BPs at goal- cont po meds and prn labetalol Diastolic CHF hx not in exacerbation, monitor with fluids given today Hyokalemia- resolved cont to monitor Hypomagnesemia, resolved cont to monitor <Michi Mcelroy - Last Filed: 12/12/17 14:17> Hospitalist Progress Note - Encounter Date of Encounter: 12/12/17 Time of Encounter: 10:30 - Subjective Interval History: Patient was seen and examined up and since morning. She states that overall she feels about the same as yesterday. Her pain continues to persist however it is relieved with medications. She is not complaining of any nausea and has had no episodes of fevers, chills. She states she did have a bowel movement yesterday was with normal for her. We also did have a discussion today regarding why she declined her EGD by gastroenterology. She states that at that time, it felt like "too much". I did discuss that she would need some way to receive nutrition and that has any further stimulation of her stomach and pancreas may result in further pain and damage. She voiced understanding to this and said that she would be amenable to nasoduodenal tube at this time. - Exam Vitals: Temp Pulse Resp BP Pulse Ox 99.0 F 88 16 134/84 95 12/12/17 11:15 12/12/17 11:15 12/12/17 11:15 12/12/17 11:15 12/12/17 11:15 Exam: Gen.: female lying in bed. Not in acute distress, resting comfortably lying down HEENT: Moist mucous membranes, normocephalic, atraumatic. Cardiac: RRR, no murmur, +S1/S2 Pulmonary: CTA bilaterally without evidence of rhonchi, wheeze, rales Abdomen: soft, nondistended. Moderately Tender to palpation diffusely, worse in epigastric region. BS present Extremities: no BLE edema, nontender calf, no cyanosis or clubbing Neuro: A&Ox3, moves all extremities, no focal deficits Psych: Appropriate mood and behavior - Assessment and Plan (1) Gallstone pancreatitis Current Visit: Yes Status: Acute Assessment and Plan: -As demonstrated on CT scan on 12/09 showing numerous intra-and. Pancreatic fluid collections with pseudocyst formation. Largest collection is 11.1 cm. There was also evidence of pancreatic necrosis and dilation of the CBD secondary to mass effect from fluid collections. - She was transferred from [place] to [place] for gastroenterology consult. -At that time, MRCP was obtained and did not show evidence of common bile duct obstruction and gastroenterology did not see a need for ERCP at that time. - Right upper quadrant ultrasound on 12/02 showed cholelithiasis without evidence of cholecystitis or obstruction - Vital signs have been stable - WBC is mildly elevated today at 12.8 from 8.4 however it is noted that all cell lines have mildly increased and patient has not had oral intake. Suspect component of hemoconcentration - Lipase 67, transaminases within normal limits, alkaline phosphatase mildly elevated at 140, albumin 2.8. - Per gastroenterology last note, it was recommended that patient undergo EGD with placement of nasal duodenal tube. Patient did refuse this as noted in subjective section. At which time TPN was recommended however, patient notably does not have insurance and would not be able to afford 4-6 weeks of therapy as was recommended by GI. Plan - Continue bowel rest - Await further GI recommendations - Pain control, antiemetics, PPI - We will give IV fluids at 75 mL per hour 2 bags for suspected dehydration. - We will have meeting Thursday with case management and nutrition to determine outpatient needs. - We will not start antibiotics at this time as leukocytosis is likely elevated hemoconcentration and there is no obvious source of infection. (2) Diabetes Current Visit: Yes Status: Chronic Assessment and Plan: Blood sugars have been well controlled since presentation, most recent reading 183 No recent A1c on records, will draw with morning labs Sliding scale insulin Accu-Cheks every 6 hours while nothing by mouth (3) Hypertension Current Visit: Yes Status: Acute Assessment and Plan: Has been better controlled with most recent reading of 134/84 Continue to monitor and continue home medications Has labetalol when necessary hypertension order (4) Leukocytosis Current Visit: Yes Status: Acute Assessment and Plan: WBC elevated this morning at 12.8 This is likely a result of hemoconcentration versus reactive secondary to gallstone pancreatitis as above No obvious source of infection however it is noted that patient has evidence of necrosis of pancreatitis on MRCP Gastroenterology is following and is not recommended antibiotics We will continue to monitor daily labs (5) Acute renal failure Current Visit: Yes Status: Resolved Assessment and Plan: Based on history, this may have been due to dehydration with severe n/v. Resolved at this time with most recent BUNs/creatinine of 13/0.84 Has been stable throughout hospital admission Creatinine at [place] was 2.72 and gradually improved with IV fluids. Plan We will continue to monitor with daily labs Receiving IV fluids as above while nothing by mouth Renally dose medications as necessary, avoid nephrotoxins (6) Malnutrition Current Visit: Yes Status: Suspected Assessment and Plan: Suspect started malnutrition Albumin of 2.8 however this may be depressed in the setting of acute inflammation Patient is nothing by mouth given findings as above GI is recommending 4-6 weeks of bowel rest with no oral intake Patient is receiving IV fluids Initial recommendation for nasal duodenal tube, patient refusing Patient was then recommended TPN which she cannot afford as outpatient, social work following Plan We will meet with rehabilitation case coordinator, social security specialist Thursday further recommendations Patient is also reconsidering nasal duodenal tube today We will continue to follow for outpatient plan Consider nutrition consult on Thursday (7) Anemia Current Visit: Yes Status: Acute Assessment and Plan: Acute anemia requiring 2 units of packed red blood cells on 10/3 - H/H this morning stable at 10.4/33.6 -There was a concern for upper GI bleed however patient is refusing EGD at this time - Started on IV Protonix - Hemodynamically stable -Alternatively may be related to nutritional status and inflammation Plan Continue to monitor with daily labs We will transfuse as necessary Appreciate GI recommendations Continue PPI (8) Hypokalemia Current Visit: Yes Status: Acute Assessment and Plan: Improved today, potassium 3.9 Improved from low 3s on previous days We will continue to replenish as necessary (9) Hypomagnesemia Current Visit: Yes Status: Acute Assessment and Plan: Improved today at 1.7 (1.3) We will continue to monitor and replete as necessary (10) DVT prophylaxis Current Visit: Yes Status: Acute Assessment and Plan: Heparin SQ 5000 units every 12 hours DVT Prophylaxis: Heparin subcutaneously - Time Spent with Patient Total time spent is greater than 50% in coordination of care (as documented) at patient's floor/unit and/or counseling patient: Internal Medicine: Result - Labs CBC & Chem 7: 12/12/17 05:00 12/12/17 05:00 Labs: Short CBC 12/12/17 Range/Units 05:00 WBC 12.8 H D (4.3-11.1) K/mcL Hgb 10.4 L (11.5-15.4) g/dL Hct 33.6 L (35.3-44.9) % Plt Count 425 H (140-400) K/mcL Neutrophils # 10.2 H (1.6-8.9) K/mcL BMP 12/12/17 05:00 Sodium 136 Potassium 3.9 Chloride 98 Carbon Dioxide 25 BUN 13 Creatinine 0.84 Glucose 183 H Calcium 8.6 Liver Function 12/12/17 Range/Units 05:00 Total Bilirubin 0.4 (0.3-1.0) mg/dL AST 19 (13-39) Units/L ALT 26 (7-52) Units/L Alkaline Phosphatase 140 H (34-104) Units/L Albumin 2.8 L (3.5-5.7) g/dL - ABG Interpretation ABG results: PT/INR, D-dimer PT 15.4 Seconds (9.4-12.1) H 12/10/17 08:39 <Marjan Salguero - Last Filed: 12/12/17 12:51> (2) Diabetes Qualifiers: Diabetes mellitus type: type 2 Diabetes mellitus intermediate project manager insulin use: with intermediate project manager use Diabetes mellitus complication status: with unspecified complications Qualified Code(s): E11.8 - Type 2 diabetes mellitus with unspecified complications; Z79.4 - senior care (current) use of insulin (3) Hypertension Qualifiers: Hypertension type: essential hypertension Qualified Code(s): I10 - Essential (primary) hypertension (5) Leukocytosis Qualifiers: Leukocytosis type: unspecified Qualified Code(s): D72.829 - Elevated white blood cell count, unspecified (6) Acute renal failure Qualifiers: Acute renal failure type: unspecified Qualified Code(s): N17.9 - Acute kidney failure, unspecified <Michi cMelroy - Last Filed: 12/12/17 14:17> (2) Diabetes Qualifiers: Diabetes mellitus type: type 2 Diabetes mellitus intermediate project manager insulin use: with intermediate project manager use Diabetes mellitus complication status: with unspecified complications Qualified Code(s): E11.8 - Type 2 diabetes mellitus with unspecified complications; Z79.4 - senior care (current) use of insulin (3) Hypertension Qualifiers: Hypertension type: essential hypertension Qualified Code(s): I10 - Essential (primary) hypertension (4) Leukocytosis Qualifiers: Leukocytosis type: unspecified Qualified Code(s): D72.829 - Elevated white blood cell count, unspecified (5) Acute renal failure Qualifiers: Acute renal failure type: unspecified Qualified Code(s): N17.9 - Acute kidney failure, unspecified (6) Malnutrition Qualifiers: Malnutrition type: protein-calorie malnutrition Protein-calorie malnutrition severity: unspecified severity Qualified Code(s): E46 - Unspecified protein- calorie malnutrition (7) Anemia Qualifiers: Anemia type: unspecified type Qualified Code(s): D64.9 - Anemia, unspecified
[2017-12-12] MEDS: Pantoprazole 40 MG VIAL IVP SCH (17:47)
[2017-12-13] MEDS: Insulin LISPRO 300 UNITS/3 ML VIAL SQ SCH ×5 (00:57→23:54)
[2017-12-13] MEDS: Ondansetron 4 MG/2 ML VIAL IVP PRN (00:58)
[2017-12-13] MEDS: traMADol 50 MG TABLET PO PRN ×3 (04:20→23:49)
[2017-12-13] MEDS ORDERED: Famotidine 20 MG/2 ML VIAL IVP PRN (04:50)
[2017-12-13 04:56] LABS: Basophils # 0.1 K/mcL (0.0-0.2); Basophils % 0.5 %; Eosinophils # 0.1 K/mcL (0.0-0.6); Hematocrit 31.9 % (35.3-44.9); Hemoglobin 9.9 g/dL (11.5-15.4); Immature Granulocytes % 0.9 % (0-4); Lymphocytes # 1.8 K/mcL (0.6-4.6); Lymphocytes % 16.3 %; Mean Corpuscular Volume 90.4 fL (83.0-100.0); Mean Platelet Volume 10.5 fL (9.4-12.4); Monocytes # 0.8 K/mcL (0.0-1.3); Neutrophils # 8.2 K/mcL (1.6-8.9); Platelet Count 411 K/mcL (140-400); Red Blood Count 3.53 M/mcL (3.82-4.97); Red Cell Distribution Width 12.8 % (11.5-14.5); Segmented Neutrophils % 74.3 %
[2017-12-13] MEDS: *HR* Heparin 5,000 UNIT/ML VIAL SQ SCH ×2 (05:10→17:42)
[2017-12-13 05:13] LABS: BUN/Creatinine Ratio 17 (6-26); Blood Urea Nitrogen 13 mg/dL (8-23); Calcium 8.3 mg/dL (8.6-10.3); Carbon Dioxide 25 mEq/L (23-29); Chloride 101 mEq/L (98-107); Glucose 142 mg/dL (70-105); Osmolality,Calculated 289 (280-300); Potassium 3.5 mEq/L (3.5-5.1); Sodium 138 mEq/L (136-145); eGFR For Non-African Americans > 60 (> 60)
--- NOTE | 2017-12-13 12:26 | Internal Med Progress Note ---
<Marjan Salguero - Last Filed: 12/13/17 15:14> Hospitalist Progress Note - Encounter Date of Encounter: 12/13/17 - Exam Vitals: Temp Pulse Resp BP Pulse Ox 97.8 F 82 16 132/70 93 12/13/17 14:41 12/13/17 14:41 12/13/17 14:41 12/13/17 14:41 12/13/17 14:41 - Assessment and Plan (1) Gallstone pancreatitis Current Visit: Yes Status: Acute (2) Diabetes Current Visit: Yes Status: Chronic (3) Hypertension Current Visit: Yes Status: Acute (4) DVT prophylaxis Current Visit: Yes Status: Acute (5) Leukocytosis Current Visit: Yes Status: Acute (6) Acute renal failure Current Visit: Yes Status: Resolved - Time Spent with Patient Total time spent is greater than 50% in coordination of care (as documented) at patient's floor/unit and/or counseling patient: Internal Medicine: Result - Labs CBC & Chem 7: 12/13/17 04:00 12/13/17 04:00 Labs: Short CBC 12/13/17 Range/Units 04:00 WBC 11.0 (4.3-11.1) K/mcL Hgb 9.9 L (11.5-15.4) g/dL Hct 31.9 L (35.3-44.9) % Plt Count 411 H (140-400) K/mcL Neutrophils # 8.2 (1.6-8.9) K/mcL BMP 12/13/17 04:00 Sodium 138 Potassium 3.5 Chloride 101 Carbon Dioxide 25 BUN 13 Creatinine 0.77 Glucose 142 H Calcium 8.3 L - ABG Interpretation ABG results: PT/INR, D-dimer PT 15.4 Seconds (9.4-12.1) H 12/10/17 08:39 Consult Discharge Plan - Plan Instructions: Cholecystitis (DC), Low Fat Diet (DC) Referrals: Rodriguez Damon [Other] (Please call [phone] to schedule follow-up (to schedule interval cholecystecomy) in aprox 4 weeks) Carol Hurd, RAILROAD WATCHMAN [Primary Care Provider] - - Attending Attestation I examined this patient and my medical decision-making was reviewed with the Resident Physician Dr Mcelroy. I agree with the documented findings, disposition and treatment plan as described except to the extent set forth below. Ms Hathaway was admitted 12/03/17 and has had a prolonged course for severe gallstone pancreatitis with pancreatic cyst and necrosis. Abdominal CT demonstrated peripancreatic fluid collections and pancreatic necrosis. GI has been following pt throughout admission. Surgery was consulted to assess for eed for cholecystectomy and recommend interval/convalescent cholecystectomy and is since signed off. GI continues to follow and recommended nasoduodenal tube placed for enteral feeding for 4-6 weeks which she has no declined, opting for TPN, but is not a candidate given no insurance and inability to afford private pay. She had a significant acute anemia which prompted concern for acute ugib and GI had plan to do egd 12/11, which she also later declined. This is a complex case given severity of her disease and social issues, as well as her reluctance to partake intreatment. This case has been discussed with case mangement whom is aware of barriers to continued treatment and discharge. Awake, resting in bed. Abd located in epigastric region unchaged from yesterday , no current nausea, no emesis overnight or thus far this morning. gen- alert, awake,appears stated age eyes- pupils equal round , no scleral icterus cv- reg rate and rhythm, normal s1,s2, no murmurs appreciated, no le edema lungs- ctabl, no wheezing, rhonchi or crackles, normal resp effort on room air abd- soft, + tender epigastrum, no guarding, no rigidity, non distended, decreased bs skin- no rash or jaundice neuro- AAOx3 Severe Gallstone Pancreatitis with pancreatic necrosis Gallstones and pancreatitis were seen on MRCP and CT images at [facility]. Lipase was normal in 200s, but CT showed findings consistent with acute pancreatitis. Imaging showed cholelithiasis near pancreatitc duct. Surgeon at [facility] requested transfer for GI eval for consideration of an ERCP GI consulted here; no ERCP warranted at that time. There was concern prior to transfer that she had active infection/sepsis and so she was transferred on meropenem and Levaquin. ID was consulted and we held antibiotics and observed. WBC count decreased at that time off of antibiotics. 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 Damon) in [facility] in aprox 4 weeks to schedule procedure. Please call [phone] to schedule follow -up at time of dc Acute Anemia, Iron Deficiency, hgb stable concern for possible GIB with decreased hemoglobin, Patient denies melena, hematachezia, hematemesis. Patient is hemodynamically stable. No obvious active bleeding. iron studies were obtained gi wanted to do egd 12/11 and pt refused -cont to monitor hgb/hct Leukocytosis work up as per previous provider and with ID involved at that time. leukocytosis resolved without abx, bl cxs neg monitoring as above DM-ssi and accu checks, bs at goal HTN, BPs at goal- cont po meds and prn labetalol Diastolic CHF hx not in exacerbation, monitor with fluids given yesterday <Michi Mcelroy - Last Filed: 12/13/17 16:53> Hospitalist Progress Note - Encounter Date of Encounter: 12/13/17 Time of Encounter: 09:55 - Subjective Interval History: Patient was seen and examined up and since morning. She states that overall she feels about the same as yesterday. Her pain continues to persist however it is relieved with medications. She is not complaining of any nausea and has had no episodes of fevers, chills. She states she did have a bowel movement this morning was with normal and loose for her. She continues to be interested in nasal duodenal tube as discussed yesterday. - Exam Vitals: Temp Pulse Resp BP Pulse Ox 97.5 F L 85 16 159/78 93 12/13/17 11:37 12/13/17 11:37 12/13/17 11:37 12/13/17 11:37 12/13/17 11:37 Exam: Gen.: female lying in bed. Not in acute distress, resting comfortably lying down HEENT: Moist mucous membranes, normocephalic, atraumatic. Cardiac: RRR, no murmur, +S1/S2 Pulmonary: CTA bilaterally without evidence of rhonchi, wheeze, rales Abdomen: soft, nondistended. Moderately Tender to palpation diffusely, worse in epigastric region. BS present but diminished Extremities: no BLE edema, nontender calf, no cyanosis or clubbing Neuro: A&Ox3, moves all extremities, no focal deficits Psych: Appropriate mood and behavior - Assessment and Plan (1) Gallstone pancreatitis Current Visit: Yes Status: Acute Assessment and Plan: -As demonstrated on CT scan on 12/09 showing numerous intra-abdominal Pancreatic fluid collections with pseudocyst formation. Largest collection is 11.1 cm. There was also evidence of pancreatic necrosis and dilation of the CBD secondary to mass effect from fluid collections. - She was transferred from [facility] to [place] for gastroenterology consult. -At that time, MRCP was obtained and did not show evidence of common bile duct obstruction and gastroenterology did not see a need for ERCP at that time. - Right upper quadrant ultrasound on 12/02 showed cholelithiasis without evidence of cholecystitis or obstruction - Vital signs have been stable - WBC has improved today to 11.0 from 12.8 after fluids yesterday. - Lipase 67, transaminases within normal limits, alkaline phosphatase mildly elevated at 140, albumin 2.8 yesterday - Per gastroenterology last note, it was recommended that patient undergo EGD with placement of nasal duodenal tube. Patient did refuse this as noted in subjective section. At which time TPN was recommended however, patient notably does not have insurance and would not be able to afford 4-6 weeks of therapy as was recommended by GI. Plan - Continue bowel rest - Await further GI recommendations - Pain control, antiemetics, PPI - Hold fluids today, consider tomorrow. - We will have meeting Thursday with case management and nutrition to determine outpatient needs. - We will not start antibiotics at this time as leukocytosis is likely elevated hemoconcentration and there is no obvious source of infection. (2) Diabetes Current Visit: Yes Status: Chronic Assessment and Plan: Blood sugars have been well controlled since presentation, most recent reading 132 No recent A1c on records, will draw with morning labs Sliding scale insulin Accu-Cheks every 6 hours while nothing by mouth (3) Hypertension Current Visit: Yes Status: Acute Assessment and Plan: Has been better controlled with most recent reading of 132/70 Continue to monitor and continue home medications Has labetalol when necessary hypertension order (4) Leukocytosis Current Visit: Yes Status: Resolved Assessment and Plan: WBC elevated yesterday at 12.8 has down trended to 11.0 This is likely a result of hemoconcentration versus reactive secondary to gallstone pancreatitis as above No obvious source of infection however it is noted that patient has evidence of necrosis of pancreatitis on MRCP Gastroenterology is following and is not recommended antibiotics We will continue to monitor daily labs (5) Acute renal failure Current Visit: Yes Status: Resolved Assessment and Plan: Based on history, this may have been due to dehydration with severe n/v. Resolved at this time with most recent BUNs/creatinine of 13/0.77 Has been stable throughout hospital admission Creatinine at [place] was 2.72 and gradually improved with IV fluids. Plan We will continue to monitor with daily labs Receiving IV fluids as above while nothing by mouth Renally dose medications as necessary, avoid nephrotoxins (6) DVT prophylaxis Current Visit: Yes Status: Acute Assessment and Plan: Heparin SQ 5000 units every 12 hours - Time Spent with Patient Total time spent is greater than 50% in coordination of care (as documented) at patient's floor/unit and/or counseling patient: Internal Medicine: Result - Labs CBC & Chem 7: 12/13/17 04:00 12/13/17 04:00 Labs: Short CBC 12/13/17 Range/Units 04:00 WBC 11.0 (4.3-11.1) K/mcL Hgb 9.9 L (11.5-15.4) g/dL Hct 31.9 L (35.3-44.9) % Plt Count 411 H (140-400) K/mcL Neutrophils # 8.2 (1.6-8.9) K/mcL BMP 12/13/17 04:00 Sodium 138 Potassium 3.5 Chloride 101 Carbon Dioxide 25 BUN 13 Creatinine 0.77 Glucose 142 H Calcium 8.3 L - ABG Interpretation ABG results: PT/INR, D-dimer PT 15.4 Seconds (9.4-12.1) H 12/10/17 08:39 <Marjan Salguero - Last Filed: 12/13/17 15:14> (2) Diabetes Qualifiers: Diabetes mellitus type: type 2 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 Diabetes mellitus complication status: with unspecified complications Qualified Code(s): E11.8 - Type 2 diabetes mellitus with unspecified complications; Z79.4 - [facility] (current) use of insulin (3) Hypertension Qualifiers: Hypertension type: essential hypertension Qualified Code(s): I10 - Essential (primary) hypertension (5) Leukocytosis Qualifiers: Leukocytosis type: unspecified Qualified Code(s): D72.829 - Elevated white blood cell count, unspecified (6) Acute renal failure Qualifiers: Acute renal failure type: unspecified Qualified Code(s): N17.9 - Acute kidney failure, unspecified <Michi Mcelroy - Last Filed: 12/13/17 16:53> (2) Diabetes Qualifiers: Diabetes mellitus type: type 2 Diabetes 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 Diabetes mellitus complication status: with unspecified complications Qualified Code(s): E11.8 - Type 2 diabetes mellitus with unspecified complications; Z79.4 - local intermodal truck driver (current) use of insulin (3) Hypertension Qualifiers: Hypertension type: essential hypertension Qualified Code(s): I10 - Essential (primary) hypertension (4) Leukocytosis Qualifiers: Leukocytosis type: unspecified Qualified Code(s): D72.829 - Elevated white blood cell count, unspecified (5) Acute renal failure Qualifiers: Acute renal failure type: unspecified Qualified Code(s): N17.9 - Acute kidney failure, unspecified
[2017-12-13] MEDS: Pantoprazole 40 MG VIAL IVP SCH (17:42)
[2017-12-14] MEDS: Ondansetron 4 MG/2 ML VIAL IVP PRN ×2 (04:05→21:37)
[2017-12-14 05:37] LABS: Basophils # 0.1 K/mcL (0.0-0.2); Basophils % 0.6 %; Eosinophils # 0.1 K/mcL (0.0-0.6); Eosinophils % 0.8 %; Hematocrit 33.5 % (35.3-44.9); Hemoglobin 10.3 g/dL (11.5-15.4); Immature Granulocytes % 0.8 % (0-4); Lymphocytes # 1.4 K/mcL (0.6-4.6); Lymphocytes % 11.8 %; Mean Corpuscular HGB Conc 30.7 g/dL (31.6-35.5); Mean Corpuscular Hemoglobin 28.1 pg (28.0-33.3); Mean Corpuscular Volume 91.3 fL (83.0-100.0); Mean Platelet Volume 11.1 fL (9.4-12.4); Monocytes # 0.9 K/mcL (0.0-1.3); Monocytes % 7.7 %; Neutrophils # 9.4 K/mcL (1.6-8.9); Platelet Count 433 K/mcL (140-400); Red Blood Count 3.67 M/mcL (3.82-4.97); Red Cell Distribution Width 12.8 % (11.5-14.5); Segmented Neutrophils % 78.3 %
[2017-12-14 06:06] LABS: Alanine Aminotransferase 19 Units/L (7-52); Albumin 2.9 g/dL (3.5-5.7); Albumin/Globulin Ratio 0.8 (1.1-2.2); Alkaline Phosphatase 126 Units/L (34-104); Aspartate Amino Transferase 17 Units/L (13-39); BUN/Creatinine Ratio 18 (6-26); Bilirubin,Total 0.4 mg/dL (0.3-1.0); Blood Urea Nitrogen 14 mg/dL (8-23); Calcium 8.6 mg/dL (8.6-10.3); Carbon Dioxide 25 mEq/L (23-29); Chloride 96 mEq/L (98-107); Globulin 3.7 g/dL (2.4-3.5); Glucose 170 mg/dL (70-105); Magnesium 1.4 mg/dL (1.6-2.6); Osmolality,Calculated 288 (280-300); Potassium 3.5 mEq/L (3.5-5.1); Sodium 137 mEq/L (136-145); Total Protein 6.6 g/dL (6.4-8.9); eGFR For Non-African Americans > 60 (> 60)
[2017-12-14] MEDS: Insulin LISPRO 300 UNITS/3 ML VIAL SQ SCH ×3 (06:23→18:17)
[2017-12-14] MEDS: *HR* Heparin 5,000 UNIT/ML VIAL SQ SCH ×2 (06:26→18:16)
[2017-12-14 07:04] LABS: Estimated Average Glucose 169 mg/dl; Hemoglobin A1C 7.5 %
--- NOTE | 2017-12-14 08:44 | Internal Med Progress Note ---
<Marjan Salguero - Last Filed: 12/14/17 14:32> Hospitalist Progress Note - Encounter Date of Encounter: 12/14/17 - Exam Vitals: Temp Pulse Resp BP Pulse Ox 98.5 F 88 14 117/78 94 12/14/17 10:36 12/14/17 10:36 12/14/17 10:36 12/14/17 10:36 12/14/17 10:36 - Assessment and Plan (1) Gallstone pancreatitis Current Visit: Yes Status: Acute (2) Diabetes Current Visit: Yes Status: Chronic (3) Hypertension Current Visit: Yes Status: Acute (4) DVT prophylaxis Current Visit: Yes Status: Acute (5) Leukocytosis Current Visit: Yes Status: Resolved (6) Acute renal failure Current Visit: Yes Status: Resolved - Time Spent with Patient Total time spent is greater than 50% in coordination of care (as documented) at patient's floor/unit and/or counseling patient: Internal Medicine: Result - Labs CBC & Chem 7: 12/14/17 03:55 12/14/17 03:55 Labs: Short CBC 12/14/17 Range/Units 03:55 WBC 12.0 H (4.3-11.1) K/mcL Hgb 10.3 L (11.5-15.4) g/dL Hct 33.5 L (35.3-44.9) % Plt Count 433 H (140-400) K/mcL Neutrophils # 9.4 H (1.6-8.9) K/mcL BMP 12/14/17 03:55 Sodium 137 Potassium 3.5 Chloride 96 L Carbon Dioxide 25 BUN 14 Creatinine 0.76 Glucose 170 H Calcium 8.6 Liver Function 12/14/17 Range/Units 03:55 Total Bilirubin 0.4 (0.3-1.0) mg/dL AST 17 (13-39) Units/L ALT 19 (7-52) Units/L Alkaline Phosphatase 126 H (34-104) Units/L Albumin 2.9 L (3.5-5.7) g/dL - ABG Interpretation ABG results: PT/INR, D-dimer PT 15.4 Seconds (9.4-12.1) H 12/10/17 08:39 Consult Discharge Plan - Plan Instructions: Cholecystitis (DC), Low Fat Diet (DC) Referrals: Rodriguez Damon [Other] (Please call [phone] to schedule follow-up (to schedule interval cholecystecomy) in aprox 4 weeks) Carol Hurd, NON CATEGORICAL PRESCHOOL TEACHER [Primary Care Provider] - - Attending Attestation I examined this patient and my medical decision-making was reviewed with the Resident Physician Dr See. I agree with the documented findings, disposition and treatment plan as described except to the extent set forth below. Ms Hathaway was admitted 12/03/17 and has had a prolonged course for severe gallstone pancreatitis with pancreatic cyst and necrosis. Abdominal CT demonstrated peripancreatic fluid collections and pancreatic necrosis. GI has been following pt throughout admission. Surgery was consulted to assess for eed for cholecystectomy and recommend interval/convalescent cholecystectomy and is since signed off. GI continues to follow and recommended nasoduodenal tube placed for enteral feeding for 4-6 weeks which she has no declined, opting for TPN, but is not a candidate given no insurance and inability to afford private pay. She had a significant acute anemia which prompted concern for acute ugib and GI had plan to do egd 12/11, which she also later declined. 12/14 now agreeable to enteral feeding. This is a complex case given severity of her disease and social issues, as well as her reluctance to partake intreatment. This case has been discussed with case mangement whom is aware of barriers to continued treatment and discharge. Awake, resting in bed. diffuse cramping abd pain, 3 episodes watery diarrhea last night. no nausea or emesis. denies fever or chills. is now agreeable to enteral feedings with gi updated gen- alert, awake,appears stated age cv- reg rate and rhythm, normal s1,s2, no murmurs appreciated, no le edema lungs- ctabl, no wheezing, rhonchi or crackles, normal resp effort on room air abd- soft, + tender diffusely, no guarding, no rigidity, non distended, decreased bs skin- no rash or jaundice neuro- AAOx3 Severe Gallstone Pancreatitis with pancreatic necrosis Gallstones and pancreatitis were seen on MRCP and CT images at [facility]. Lipase was normal in 200s, but CT showed findings consistent with acute pancreatitis. Imaging showed cholelithiasis near pancreatitc duct. Surgeon at [facility] requested transfer for GI eval for consideration of an ERCP GI consulted here; no ERCP warranted at that time. There was concern prior to transfer that she had active infection/sepsis and so she was transferred on meropenem and Levaquin. ID was consulted and we held antibiotics and observed. WBC count decreased at that time off of antibiotics. She agreed to nasojejunal tube placement by IR for enteral feeding today, SW aware and to begin checking into pricing for her new diarrhea overnight, she has been off any antibiotics, gi aware and c diff ordered surgery had planned 4 week outpt fu for outpt surgery, fu gi recs re timing of surgery surgery team previously noted she can follow up with her surgeon (Dr. Damon ) in [facility] in aprox 4 weeks to schedule procedure and to call to schedule follow-up at time of dc wbc to 11-12 in recent days, no fevers Acute Anemia, Iron Deficiency, hgb stable concern for possible GIB with decreased hemoglobin, Patient denies melena, hematachezia, hematemesis. Patient is hemodynamically stable. No obvious active bleeding. gi wanted to do egd 12/11 and pt refused Leukocytosis work up as per previous provider and with ID involved at that time. leukocytosis resolved without abx, bl cxs neg monitoring as above, new diarrhea 12/14 and will check c diff, afebrile DM-ssi and accu checks, bs at goal HTN, BPs at goal- cont po meds and prn labetalol Diastolic CHF hx not in exacerbation, monitor for fluid overload Hypomagnesemia- replete IV <Lis Tyler - Last Filed: 12/14/17 18:48> Hospitalist Progress Note - Encounter Date of Encounter: 12/14/17 Time of Encounter: 09:35 - Subjective Interval History: Aleksandra Hathaway was lying comfortably in bed today and states that she felt unchanged from yesterday. She continues to complain of mild diffuse abdominal pain. She admitted to 3 episodes of watery diarrhea, but denied any nausea, vomiting, lightheadedness, dizziness, fever or chills. She was agreeable today to having an NG tube places, as she voices concerns of not wanting to end up in a jail. - Exam Vitals: Temp Pulse Resp BP Pulse Ox 98.9 F 91 14 113/75 93 10/08/18 07:21 12/14/17 07:21 12/14/17 07:21 12/14/17 07:21 12/14/17 07:21 Exam: Gen.: Lying comfortably in bed. NAD HEENT: normocephalic, atraumatic. Cardiac: RRR, no murmur, noraml S1/S2 Pulmonary: CTAB, without wheezing Abdomen: soft, non-distended. Moderately tender to palpation diffusely. BS noted. Extremities: no BLE edema, nontender calf, no cyanosis or clubbing Neuro: no focal deficits Psych: Answered questions appropriately, appeared sad - Assessment and Plan (1) Gallstone pancreatitis Current Visit: Yes Status: Acute Assessment and Plan: Gallstones pancreatitis discovered at [facility] via MRCP and CT scan. Lipase in 200s on presentation, but CT showed findings suggestive of acute pancreatitis Transferred for further management, GI c/s and possible ERCP ERCP was not recommended upon arrival Surgery was consulted and recommended interval/convalescent cholecystectomy GI recommended nasoduodenal tube placed for enteral feeding for 4-6 weeks which she intitally declined Today, patient was agreeable today to placing a NG tube GI to place NG today Surgery recommending follow up in 4 weeks to schedule cholecystectomy (2) Acute anemia Current Visit: Yes Status: Acute Assessment and Plan: Concern for possible GIB Patient denies melena, hematachezia, hematemesis. GI recommeneded EGD on 12/11, patient refused Hgb 10 --> 8.6 --> 9.2 today Patient is hemodynamically stable. No obvious active bleeding. iron<10 transferrin 127 (low) ferritin 468 (high) Currently stable, will monitor closely (3) Diabetes Current Visit: Yes Status: Chronic Assessment and Plan: A1c 7.5 Currently well controlled and at goal Continue SSI and accu checks (4) Hypertension Current Visit: Yes Status: Acute Assessment and Plan: Continue home meds Will continue to monitor and use labetalol PRN (5) Leukocytosis Current Visit: Yes Status: Resolved Assessment and Plan: Likely secondary to hemoconcentration versus reactive d/t gallstone pancreatitis WBC mildly fluctuating, was 8.4 on admission, 11 yesterday, and 12 today GI following, not currently recommending abx (6) Acute renal failure Current Visit: Yes Status: Resolved Assessment and Plan: Resolved. Likely secondary to dehydration with N/V Cr 2.72 initially, 0.76 today DVT Prophylaxis: Heparin subcutaneously - Time Spent with Patient Total time spent is greater than 50% in coordination of care (as documented) at patient's floor/unit and/or counseling patient: Internal Medicine: Result - Labs CBC & Chem 7: 12/14/17 03:55 12/14/17 03:55 Labs: Short CBC 12/14/17 Range/Units 03:55 WBC 12.0 H (4.3-11.1) K/mcL Hgb 10.3 L (11.5-15.4) g/dL Hct 33.5 L (35.3-44.9) % Plt Count 433 H (140-400) K/mcL Neutrophils # 9.4 H (1.6-8.9) K/mcL BMP 12/14/17 03:55 Sodium 137 Potassium 3.5 Chloride 96 L Carbon Dioxide 25 BUN 14 Creatinine 0.76 Glucose 170 H Calcium 8.6 Liver Function 12/14/17 Range/Units 03:55 Total Bilirubin 0.4 (0.3-1.0) mg/dL AST 17 (13-39) Units/L ALT 19 (7-52) Units/L Alkaline Phosphatase 126 H (34-104) Units/L Albumin 2.9 L (3.5-5.7) g/dL - ABG Interpretation ABG results: PT/INR, D-dimer PT 15.4 Seconds (9.4-12.1) H 12/10/17 08:39 <Marjan Salguero - Last Filed: 12/14/17 14:32> (2) Diabetes Qualifiers: Diabetes mellitus type: type 2 Diabetes mellitus [facility] insulin use: with [facility] use Diabetes mellitus complication status: with unspecified complications Qualified Code(s): E11.8 - Type 2 diabetes mellitus with unspecified complications; Z79.4 - ad terminal makeup operator (current) use of insulin (3) Hypertension Qualifiers: Hypertension type: essential hypertension Qualified Code(s): I10 - Essential (primary) hypertension (5) Leukocytosis Qualifiers: Leukocytosis type: unspecified Qualified Code(s): D72.829 - Elevated white blood cell count, unspecified (6) Acute renal failure Qualifiers: Acute renal failure type: unspecified Qualified Code(s): N17.9 - Acute kidney failure, unspecified <Lis Tyler - Last Filed: 12/14/17 18:48> (3) Diabetes Qualifiers: Diabetes mellitus type: type 2 Diabetes mellitus marine oil terminal superintendent insulin use: with marine oil terminal superintendent use Diabetes mellitus complication status: with unspecified complications Qualified Code(s): E11.8 - Type 2 diabetes mellitus with unspecified complications; Z79.4 - longterm (current) use of insulin (4) Hypertension Qualifiers: Hypertension type: essential hypertension Qualified Code(s): I10 - Essential (primary) hypertension (5) Leukocytosis Qualifiers: Leukocytosis type: unspecified Qualified Code(s): D72.829 - Elevated white blood cell count, unspecified (6) Acute renal failure Qualifiers: Acute renal failure type: unspecified Qualified Code(s): N17.9 - Acute kidney failure, unspecified
[2017-12-14] MEDS ORDERED: *HR* LORazepam 2 MG/ML VIAL IVP ONE (11:12)
--- NOTE | 2017-12-14 11:22 | Gastroenterology Progress Note ---
<Gail Vela - Last Filed: 12/14/17 14:39> Date of Encounter: 12/14/17 Time of Encounter: 11:10 - Assessment and plan (1) Gallstone pancreatitis Status: Acute Assessment and plan: Patient is currently being treated for gallstone pancreatitis in the severe form. She has already likely passed the stone since her WBC improved significantly. She has had minimal improvement of pain despite NPO, IVF, and time. Abdominal CT demonstrated peripancreatic fluid collections and pancreatic necrosis. WBC 12 Abdominal exam is soft, significant for diffusely tender still. Patient reports slight improvement of abdominal pain. Denies nausea and vo miting. Plan: The severity of her pancreatitis was explained to her and the need for enteric nutrition to help the progression of her recovery. She agreed to nasojejunal tube placement by IR for enteral feeding today. Will order 0.5 mg Ativan 15 minutes prior to procedure. KUB and chest x-ray ordered for after procedure. ABG ordered as she has severe pancreatitis. Will start the antibiotic cefoxitin as she is improving very slowly and pancreatic necrosis. It was discussed with her that she would likely need a cholecystectomy prior to being discharged home. (2) Anemia Status: Acute Assessment and plan: Normocephalic anemia. There was a concern for possible GIB however hemoglobin 10.3 -stable. s/p 2 units of PRBC Patient denies melena, hematachezia, hematemesis. Patient is hemodynamically stable. No obvious active bleeding. iron<10 transferrin 127 (low) ferritin 468 (high) Plan: monitor H&H Qualifiers: Anemia type: unspecified type Qualified Code(s): D64.9 - Anemia, unspecified (3) Diarrhea Status: Acute Assessment and plan: Patient has had 3 episodes of watery diarrhea yesterday. Concern for possible C diff despite not been on antibiotics of this time. She has never had C diff. -C diff test ordered Qualifiers: Diarrhea type: presumed infectious Qualified Code(s): R19.7 - Diarrhea, unspecified - Time Spent With Patient Total time spent is greater than 50% in coordination of care (as documented) at patient's floor/unit and/or counseling patient: - Subjective Interval history: Patient seen and examined at bedside. She is alert and oriented times 3. She reports minimal improvement of abdominal pain. She feels weak. She denies nausea and vomiting. She has had a bowel movement today in 3 episodes of watery diarrhea yesterday. - Constitutional Vitals: Temp Pulse Resp BP Pulse Ox 98.5 F 88 14 117/78 94 12/14/17 10:36 12/14/17 10:36 12/14/17 10:36 12/14/17 10:36 12/14/17 10:36 General appearance: Present: cooperative, A&O X 3, no acute distress, answers questions appropriately Exam: Gen.: Vitals noted. No acute distress. AAOx3 HEENT: oropharynx clear, Normocephalic, atraumatic Neck: Supple. No adenopathy. Cardiac: RRR, no murmur, +S1/S2 Pulmonary: CTA bilaterally, no wheezes, rales or rhonchi, equal chest expansion Abdomen: soft, diffuse tender, Bowel sounds noted, no guarding Extremities: no BLE edema Neuro: A&Ox3, moves all extremities, no focal deficits Psych: Appropriate mood and behavior Results - Labs CBC & Chem 7: 12/14/17 03:55 12/14/17 03:55 Labs: Last Result Calcium 8.6 mg/dL (8.6-10.3) 12/14/17 03:55 Iron < 10 mcg/dL (50-170) L 12/07/17 15:31 % Saturation TNP 12/07/17 15:31 Transferrin 127 mg/dL (203-362) L 12/07/17 15:31 Ferritin 468 ng/mL (10-120) H 12/07/17 15:31 C-Reactive Protein > 300 mg/L (Less than 10) H 12/04/17 04:55 Triglycerides 114 mg/dL (< 150) 12/03/17 16:41 Vitamin B12 826 pg/mL (250-1100) 12/07/17 15:31 Folate > 22.3 ng/mL (3.0-16.0) H 12/07/17 15:31 Entire Visit Hgb 10.3 g/dL (11.5-15.4) L 12/14/17 03:55 Hct 33.5 % (35.3-44.9) L 12/14/17 03:55 PT 15.4 Seconds (9.4-12.1) H 12/10/17 08:39 Ferritin 468 ng/mL (10-120) H 12/07/17 15:31 Total Bilirubin 0.4 mg/dL (0.3-1.0) 12/14/17 03:55 AST 17 Units/L (13-39) 12/14/17 03:55 ALT 19 Units/L (7-52) 12/14/17 03:55 Lipase 67 Units/L (11-82) 12/10/17 08:39 Folate > 22.3 ng/mL (3.0-16.0) H 12/07/17 15:31 - ABG ABG results: PT/INR, D-dimer PT 15.4 Seconds (9.4-12.1) H 12/10/17 08:39 Consult Discharge Plan - Plan Instructions: Cholecystitis (DC), Low Fat Diet (DC) Referrals: Rodriguez Damon [Other] (Please call [phone] to schedule follow-up (to schedule interval cholecystecomy) in aprox 4 weeks) Carol Hurd, [employer] [Primary Care Provider] - <Ryan Dexter - Last Filed: 12/27/17 22:31> - Time Spent With Patient Total time spent is greater than 50% in coordination of care (as documented) at patient's floor/unit and/or counseling patient: - Constitutional Vitals: Temp Pulse Resp BP Pulse Ox 98.3 F 74 16 143/71 97 12/17/17 16:11 12/17/17 16:11 12/17/17 16:11 12/17/17 16:11 12/17/17 16:11 Results - Labs CBC & Chem 7: 12/17/17 04:34 12/17/17 04:34 Labs: Last Result Calcium 8.5 mg/dL (8.6-10.3) L 12/17/17 04:34 Iron < 10 mcg/dL (50-170) L 12/07/17 15:31 % Saturation TNP 12/07/17 15:31 Transferrin 127 mg/dL (203-362) L 12/07/17 15:31 Ferritin 468 ng/mL (10-120) H 12/07/17 15:31 C-Reactive Protein > 300 mg/L (Less than 10) H 12/04/17 04:55 Triglycerides 114 mg/dL (< 150) 12/03/17 16:41 Vitamin B12 826 pg/mL (250-1100) 12/07/17 15:31 Folate > 22.3 ng/mL (3.0-16.0) H 12/07/17 15:31 Entire Visit Hgb 9.0 g/dL (11.5-15.4) L 12/17/17 04:34 Hct 29.5 % (35.3-44.9) L 12/17/17 04:34 PT 15.4 Seconds (9.4-12.1) H 12/10/17 08:39 Ferritin 468 ng/mL (10-120) H 12/07/17 15:31 Total Bilirubin 0.3 mg/dL (0.3-1.0) 12/17/17 04:34 AST 19 Units/L (13-39) 12/17/17 04:34 ALT 29 Units/L (7-52) 12/17/17 04:34 Amylase 150 Units/L (29-103) H 12/16/17 05:25 Lipase 140 Units/L (11-82) H 12/16/17 05:25 Folate > 22.3 ng/mL (3.0-16.0) H 12/07/17 15:31 - ABG ABG results: PT/INR, D-dimer PT 15.4 Seconds (9.4-12.1) H 12/10/17 08:39 - Attending Attestation Patient with acute gallstone pancreatitis. CT suggests pancreatic necrosis. Sterile. Plan Nasoenteric feeding and IV antibiotics, IV PPI, pain management. Manage in [place] for now I examined this patient and my medical decision-making was reviewed with the Resident Physician. I agree with the documented findings, disposition and treatment plan as described except to the extent set forth below.
[2017-12-14] MEDS: cefOXitin 1,000 MG in Water for inj. (sterile) 20 ML 10 ML IVP SCH (16:28)
[2017-12-14] MEDS: Pantoprazole 40 MG VIAL IVP SCH (18:16)
[2017-12-14] MEDS: traMADol 50 MG TABLET PO PRN (22:45)
[2017-12-15] MEDS: cefOXitin 1,000 MG in Water for inj. (sterile) 20 ML 10 ML IVP SCH ×3 (00:43→19:31)
[2017-12-15] MEDS: Insulin LISPRO 300 UNITS/3 ML VIAL SQ SCH ×4 (00:44→19:33)
[2017-12-15] MEDS: 0.9 % Sodium Chloride w KCl 20 MEQ/1,000 ML MLS IVC SCH ×2 (05:30→19:34)
[2017-12-15] MEDS: *HR* Heparin 5,000 UNIT/ML VIAL SQ SCH ×2 (05:47→19:33)
[2017-12-15 06:27] LABS: Basophils # 0.1 K/mcL (0.0-0.2); Basophils % 0.6 %; Eosinophils # 0.1 K/mcL (0.0-0.6); Eosinophils % 0.6 %; Hemoglobin 10.5 g/dL (11.5-15.4); Immature Granulocytes % 0.6 % (0-4); Lymphocytes # 1.4 K/mcL (0.6-4.6); Lymphocytes % 11.9 %; Mean Corpuscular HGB Conc 30.9 g/dL (31.6-35.5); Mean Corpuscular Hemoglobin 27.9 pg (28.0-33.3); Mean Corpuscular Volume 90.2 fL (83.0-100.0); Monocytes # 0.7 K/mcL (0.0-1.3); Monocytes % 6.3 %; Neutrophils # 9.3 K/mcL (1.6-8.9); Platelet Count 396 K/mcL (140-400); Red Blood Count 3.77 M/mcL (3.82-4.97); Red Cell Distribution Width 12.8 % (11.5-14.5)
[2017-12-15 06:42] LABS: BUN/Creatinine Ratio 20 (6-26); Blood Urea Nitrogen 16 mg/dL (8-23); Calcium 8.7 mg/dL (8.6-10.3); Carbon Dioxide 25 mEq/L (23-29); Chloride 97 mEq/L (98-107); Glucose 201 mg/dL (70-105); Magnesium 1.5 mg/dL (1.6-2.6); Osmolality,Calculated 293 (280-300); Phosphorous 4.3 mg/dL (2.7-4.5); Potassium 3.5 mEq/L (3.5-5.1); Sodium 138 mEq/L (136-145); eGFR For Non-African Americans > 60 (> 60)
--- NOTE | 2017-12-15 09:00 | Gastroenterology Progress Note ---
<Gail Vela - Last Filed: 12/15/17 17:24> Date of Encounter: 12/15/17 Time of Encounter: 08:59 - Assessment and plan (1) Gallstone pancreatitis Status: Acute Assessment and plan: Patient is currently being treated for gallstone pancreatitis in the severe form. She has already likely passed the stone since her WBC improved significantly. She has had minimal improvement of pain despite NPO, IVF, and time. Abdominal CT demonstrated peripancreatic fluid collections and pancreatic necrosis. WBC 11.6 improving Patient still appears quite ill with abdominal exam is soft, significant for diffusely tender still. Patient reports slight improvement of abdominal pain. Denies nausea and vomiting. Plan: The severity of her pancreatitis was explained to her and the need for enteric nutrition to help the progression of her recovery. Nasojejunal tube placement is in gastric fundus rather than post pyloric sphincter. Will give Reglan in hopes that it will migrate to properly positioning. May contact IR to see if they can place tube under fluoroscopy. Continue antibiotic cefoxitin day 2 as she is improving very slowly and pancreatic necrosis. It was discussed with her that she would likely need a cholecystectomy prior to being discharged home. (2) Anemia Status: Acute Assessment and plan: Normocephalic anemia. There was a concern for possible GIB however hemoglobin stable. s/p 2 units of PRBC Patient denies melena, hematachezia, hematemesis. Patient is hemodynamically stable. No obvious active bleeding. iron<10 transferrin 127 (low) ferritin 468 (high) Plan: monitor H&H (3) Diarrhea Status: Acute Assessment and plan: Patient has had 3 episodes of watery diarrhea yesterday. Concern for possible C diff despite not been on antibiotics of this time. She has never had C diff. Today she is only one upset the diarrhea this morning. Not bloody. -C diff test negative - Time Spent With Patient Total time spent is greater than 50% in coordination of care (as documented) at patient's floor/unit and/or counseling patient: - Subjective Interval history: Patient seen and examined at bedside. She is alert and oriented times 3. She still appears quite ill not much improved. She had one episode of diarrhea this morning, non-bloody slightly improved from yesterday. Chest x-ray shows that the dophoff tube still in the gastric fundus rather than post pyloric sphincter. She denies fever and chills. - Constitutional Vitals: Temp Pulse Resp BP Pulse Ox 98.3 F 102 14 138/82 92 12/15/17 06:50 12/15/17 06:50 12/15/17 06:50 12/15/17 06:50 12/15/17 06:50 General appearance: Present: cooperative, A&O X 3, no acute distress, answers questions appropriately Exam: Gen.: Vitals noted. No acute distress. AAOx3 HEENToropharynx clear, Normocephalic, atraumatic Neck: Supple. No adenopathy. Cardiac: RRR, no murmur, +S1/S2 Pulmonary: CTA bilaterally, no wheezes, rales or rhonchi, equal chest expansion Abdomen: soft, diffuse tender, Bowel sounds noted, no guarding MSK: ROM intact, no joint swelling noted Extremities: no BLE edema, nontender calf, no clubbing Neuro: A&Ox3, moves all extremities, no focal deficits Psych: Appropriate mood and behavior Results - Labs CBC & Chem 7: 12/15/17 06:00 12/15/17 06:00 Labs: Last Result Calcium 8.7 mg/dL (8.6-10.3) 12/15/17 06:00 Iron < 10 mcg/dL (50-170) L 12/07/17 15:31 % Saturation TNP 12/07/17 15:31 Transferrin 127 mg/dL (203-362) L 12/07/17 15:31 Ferritin 468 ng/mL (10-120) H 12/07/17 15:31 C-Reactive Protein > 300 mg/L (Less than 10) H 12/04/17 04:55 Triglycerides 114 mg/dL (< 150) 12/03/17 16:41 Vitamin B12 826 pg/mL (250-1100) 12/07/17 15:31 Folate > 22.3 ng/mL (3.0-16.0) H 12/07/17 15:31 Entire Visit Hgb 10.5 g/dL (11.5-15.4) L 12/15/17 06:00 Hct 34.0 % (35.3-44.9) L 12/15/17 06:00 PT 15.4 Seconds (9.4-12.1) H 12/10/17 08:39 Ferritin 468 ng/mL (10-120) H 12/07/17 15:31 Total Bilirubin 0.4 mg/dL (0.3-1.0) 12/14/17 03:55 AST 17 Units/L (13-39) 12/14/17 03:55 ALT 19 Units/L (7-52) 12/14/17 03:55 Lipase 67 Units/L (11-82) 12/10/17 08:39 Folate > 22.3 ng/mL (3.0-16.0) H 12/07/17 15:31 - ABG ABG results: PT/INR, D-dimer PT 15.4 Seconds (9.4-12.1) H 12/10/17 08:39 - Impressions Impressions Chest X-Ray 12/14/17 11:13 IMPRESSION: 1. There appears to be catheter traversing the right paraspinal region. 2. Likely trace pleural effusions with bibasilar atelectasis. D/ / Salas Acosta MD / Salas Acosta MD Interpreting Provider: Salas Acosta MD X-Ray 12/14/17 11:13 IMPRESSION: Nonobstructed bowel-gas pattern. Partially visualized Dobbhoff tube is coiled in the left upper quadrant. D/ / 12/14/2017 15:38:43 Francisco Ramey MD / bcarter Interpreting Provider: Francisco Ramey MD X-Ray 12/14/17 18:01 IMPRESSION: Feeding tube tip within the gastric fundus. D/ / Shanelle Ramey MD / Shanelle Ramey MD Interpreting Provider: Shanelle Ramey MD X-Ray 12/14/17 23:30 IMPRESSION: Intragastric positioning of weighted feeding tube. D/ / Michael Velasquez / Michael Velasquez Interpreting Provider: Michael Velasquez Consult Discharge Plan - Plan Instructions: Cholecystitis (DC), Low Fat Diet (DC) Referrals: Rodriguez Damon [Other] (Please call [phone] to schedule follow-up (to schedule interval cholecystecomy) in aprox 4 weeks) Carol Hurd, WE[employer]ER [Primary Care Provider] - <Ryan Dexter - Last Filed: 12/27/17 22:20> - Time Spent With Patient Total time spent is greater than 50% in coordination of care (as documented) at patient's floor/unit and/or counseling patient: - Constitutional Vitals: Temp Pulse Resp BP Pulse Ox 98.3 F 74 16 143/71 97 12/17/17 16:11 12/17/17 16:11 12/17/17 16:11 12/17/17 16:11 12/17/17 16:11 Results - Labs CBC & Chem 7: 12/17/17 04:34 12/17/17 04:34 Labs: Last Result Calcium 8.5 mg/dL (8.6-10.3) L 12/17/17 04:34 Iron < 10 mcg/dL (50-170) L 12/07/17 15:31 % Saturation TNP 12/07/17 15:31 Transferrin 127 mg/dL (203-362) L 12/07/17 15:31 Ferritin 468 ng/mL (10-120) H 12/07/17 15:31 C-Reactive Protein > 300 mg/L (Less than 10) H 12/04/17 04:55 Triglycerides 114 mg/dL (< 150) 12/03/17 16:41 Vitamin B12 826 pg/mL (250-1100) 12/07/17 15:31 Folate > 22.3 ng/mL (3.0-16.0) H 12/07/17 15:31 Entire Visit Hgb 9.0 g/dL (11.5-15.4) L 12/17/17 04:34 Hct 29.5 % (35.3-44.9) L 12/17/17 04:34 PT 15.4 Seconds (9.4-12.1) H 12/10/17 08:39 Ferritin 468 ng/mL (10-120) H 12/07/17 15:31 Total Bilirubin 0.3 mg/dL (0.3-1.0) 12/17/17 04:34 AST 19 Units/L (13-39) 12/17/17 04:34 ALT 29 Units/L (7-52) 12/17/17 04:34 Amylase 150 Units/L (29-103) H 12/16/17 05:25 Lipase 140 Units/L (11-82) H 12/16/17 05:25 Folate > 22.3 ng/mL (3.0-16.0) H 12/07/17 15:31 - ABG ABG results: PT/INR, D-dimer PT 15.4 Seconds (9.4-12.1) H 12/10/17 08:39 - Attending Attestation Necrotizing gallstone pancreatitis. Needs Nasoenteric feeding. Discussed with patient and team. Broad spectrum antibiotics and surgery following. Manage at [place] for now. Scans reviewed personally by me. I examined this patient and my medical decision-making was reviewed with the Resident Physician. I agree with the documented findings, disposition and treatment plan as described except to the extent set forth below.
--- NOTE | 2017-12-15 09:01 | Internal Med Progress Note ---
<Lis Tyler - Last Filed: 12/15/17 16:50> Hospitalist Progress Note - Encounter Date of Encounter: 12/15/17 Time of Encounter: 10:05 - Subjective Interval History: Aleksandra Hathaway was lying comfortably in bed today and states that she felt slightly improved from yesterday. She continues to complain of mild diffuse abdominal pain. She admitted to a couple episodes of watery diarrhea since yesterday, but denied any nausea, vomiting, lightheadedness, dizziness, fever or chills. She had the nasojejunal tube placed yesterday and is agreeable to having a possible cholecystectomy prior to discharge pending surgery recommendations. - Exam Vitals: Temp Pulse Resp BP Pulse Ox 98.3 F 102 14 138/82 92 12/15/17 06:50 12/15/17 06:50 12/15/17 06:50 12/15/17 06:50 12/15/17 06:50 Exam: Gen.: Lying comfortably in bed. NAD HEENT: normocephalic, atraumatic. Cardiac: RRR, no murmur, noraml S1/S2 Pulmonary: CTAB, without wheezing Abdomen: soft, non-distended. Moderately tender to palpation diffusely. hyperactive BS noted. Extremities: no BLE edema, nontender calf, no cyanosis or clubbing Neuro: no focal deficits Psych: Answered questions appropriately, continues to seem very sad - Assessment and Plan (1) Gallstone pancreatitis Current Visit: Yes Status: Acute Assessment and Plan: Gallstones pancreatitis discovered at [place] via MRCP and CT scan. Lipase 67 on presentation, but CT showed findings suggestive of acute pancreatitis Surgery was consulted initially and recommended interval/convalescent cholecystectomy d/t severity of pancreatitis GI recommended nasojejunal tube placed for enteral feeding for 4-6 weeks, which she intitally declined but was agreeable yesterday Nasojejunal tube was placed yesterday, KUB today shows feeding tube coiled upon itself in the proximal stomach WBC 23.2 on presentation, 11.[address] abd/pelvis 12/09. Numerous large intra- and peripancreatic fluid collections secondary to ongoing pancreatitis with pseudocyst formation. The largest collection measures 11.1 cm in length. There is evidence of pancreatic necrosis, although the acute inflammatory changes of the pancreas have improved when compared with the previous exam. 2. Dilatation of the common bile duct and gallbladder distension, most likely due to mass effect on the central CBD from the pancreatic fluid collections. GI following - Reglan given to try and help with nasojejunal tube placement, cont. Cefoxitin d/t pancreatic necrosis, possible cholecystectomy prior to discharge Surgery following - discussed case with Dr. Woodson, resident on surgery. Dr. Barlow to see patient tomorrow, appreciate sx recommendations Ordered repeat lipase, amylase, and CMP (2) Acute anemia Current Visit: Yes Status: Acute Assessment and Plan: Concern for possible GIB in early hospital course Patient denies melena, hematachezia, hematemesis. GI recommeneded EGD on 12/11, patient refused Hgb 10 --> 7.6 --> 10.5 today Patient is hemodynamically stable. No obvious active bleeding. iron<10 transferrin 127 (low) ferritin 468 (high) Currently stable, will monitor closely (3) Diabetes Current Visit: Yes Status: Chronic Assessment and Plan: A1c 7.5 Currently well controlled and at goal Continue SSI and accu checks (4) Hypertension Current Visit: Yes Status: Acute Assessment and Plan: Continue home meds Will continue to monitor (5) Leukocytosis Current Visit: Yes Status: Resolved Assessment and Plan: Likely secondary to hemoconcentration versus reactive d/t gallstone pancreatitis WBC 23.3 on presentation, 11.6 today GI following, not currently recommending abx (6) Acute renal failure Current Visit: Yes Status: Resolved Assessment and Plan: Resolved. Likely secondary to dehydration with N/V Cr 2.72 initially, 0.81 today DVT Prophylaxis: Heparin subcutaneously - Time Spent with Patient Total time spent is greater than 50% in coordination of care (as documented) at patient's floor/unit and/or counseling patient: Internal Medicine: Result - Labs CBC & Chem 7: 12/15/17 06:00 12/15/17 06:00 Labs: Short CBC 12/15/17 Range/Units 06:00 WBC 11.6 H (4.3-11.1) K/mcL Hgb 10.5 L (11.5-15.4) g/dL Hct 34.0 L (35.3-44.9) % Plt Count 396 (140-400) K/mcL Neutrophils # 9.3 H (1.6-8.9) K/mcL BMP 12/15/17 06:00 Sodium 138 Potassium 3.5 Chloride 97 L Carbon Dioxide 25 BUN 16 Creatinine 0.81 Glucose 201 H Calcium 8.7 - ABG Interpretation ABG results: PT/INR, D-dimer PT 15.4 Seconds (9.4-12.1) H 12/10/17 08:39 - Impressions Impressions Chest X-Ray 12/14/17 11:13 IMPRESSION: 1. There appears to be catheter traversing the right paraspinal region. 2. Likely trace pleural effusions with bibasilar atelectasis. D/ / Salas Acosta MD / Salas Acosta MD Interpreting Provider: Salas Acosta MD X-Ray 12/14/17 11:13 IMPRESSION: Nonobstructed bowel-gas pattern. Partially visualized Dobbhoff tube is coiled in the left upper quadrant. D/ : / 12/14/2017 15:38:43 Francisco Ramey MD / ana Interpreting Provider: Francisco Ramey MD X-Ray 12/14/17 18:01 IMPRESSION: Feeding tube tip within the gastric fundus. D/ / Shanelle Ramey MD / Shanelle Ramey MD Interpreting Provider: Shanelle Ramey MD X-Ray 12/14/17 23:30 IMPRESSION: Intragastric positioning of weighted feeding tube. D/ / Michael Velasquez / Michael Velasquez Interpreting Provider: Michael Velasquez Consult Discharge Plan - Plan Instructions: Cholecystitis (DC), Low Fat Diet (DC) Referrals: Rodriguez Damon [Other] (Please call [phone] to schedule follow-up (to schedule interval cholecystecomy) in aprox 4 weeks) Carol Hurd, [employer]ER [Primary Care Provider] - <Reese Sahu - Last Filed: 12/15/17 18:26> Hospitalist Progress Note - Encounter Date of Encounter: 12/15/17 - Exam Vitals: Temp Pulse Resp BP Pulse Ox 98.4 F 96 16 103/71 92 12/15/17 16:14 12/15/17 16:14 12/15/17 16:14 12/15/17 16:14 12/15/17 16:14 - Assessment and Plan (1) Biliary acute pancreatitis with uninfected necrosis Current Visit: Yes Status: Acute (2) Gallstone pancreatitis Current Visit: Yes Status: Acute (3) Diabetes Current Visit: Yes Status: Chronic (4) Hypertension Current Visit: Yes Status: Acute (5) DVT prophylaxis Current Visit: Yes Status: Acute (6) Leukocytosis Current Visit: Yes Status: Resolved (7) Acute renal failure Current Visit: Yes Status: Resolved (8) Hypomagnesemia Current Visit: Yes Status: Acute - Time Spent with Patient Total time spent is greater than 50% in coordination of care (as documented) at patient's floor/unit and/or counseling patient: Internal Medicine: Result - Labs CBC & Chem 7: 12/15/17 06:00 12/15/17 06:00 Labs: Short CBC 12/15/17 Range/Units 06:00 WBC 11.6 H (4.3-11.1) K/mcL Hgb 10.5 L (11.5-15.4) g/dL Hct 34.0 L (35.3-44.9) % Plt Count 396 (140-400) K/mcL Neutrophils # 9.3 H (1.6-8.9) K/mcL BMP 12/15/17 06:00 Sodium 138 Potassium 3.5 Chloride 97 L Carbon Dioxide 25 BUN 16 Creatinine 0.81 Glucose 201 H Calcium 8.7 - ABG Interpretation ABG results: PT/INR, D-dimer PT 15.4 Seconds (9.4-12.1) H 12/10/17 08:39 - Impressions Impressions KUB X-Ray 12/14/17 18:01 IMPRESSION: Feeding tube tip within the gastric fundus. D/ / Shanelle Ramey MD / Shanelle Ramey MD Interpreting Provider: Shanelle Ramey MD X-Ray 12/14/17 23:30 IMPRESSION: Intragastric positioning of weighted feeding tube. D/ / Michael Velasquez / Michael Velasquez Interpreting Provider: Michael Velasquez X-Ray 12/15/17 11:11 IMPRESSION: Feeding tube coiled upon itself in the proximal stomach with the tip in the gastric fundus. D/ / Sharif Way MD / Sharif Way MD Interpreting Provider: Sharif Way MD - Attending Attestation I examined this patient and my medical decision-making was reviewed with the Resident Physician on 12/15/17. I agree with the documented findings, disposition and treatment plan as described except to the extent set forth below. Ms Hathaway is currently admitted for acute gallstone pancreatitis with necrosis. She remains moderate to high risk due to potential for worsening clinical status. Ms Hathaway is still having pain. Overall feels maybe a little better. Dobhoff currently still in stomach. No fever or chills. Some loose stool. Exam alert Moderate distress due to pain Mucus membranes dry Heart reg and not tachy at this time Lungs diminished but clear Abd diffusely tender No edema. Pulses palpable bilaterally. I/P 1. Acute pancreatitis with necrosis related to gallstones 2. Reglan given for dobhoff Further diagnoses and plan as above. <Lis Tyler - Last Filed: 12/15/17 16:50> (3) Diabetes Qualifiers: Diabetes mellitus type: type 2 Diabetes mellitus senior care insulin use: with senior care use Diabetes mellitus complication status: with unspecified complications Qualified Code(s): E11.8 - Type 2 diabetes mellitus with unspecified complications; Z79.4 - business office coordinator (current) use of insulin (4) Hypertension Qualifiers: Hypertension type: essential hypertension Qualified Code(s): I10 - Essential (primary) hypertension (5) Leukocytosis Qualifiers: Leukocytosis type: unspecified Qualified Code(s): D72.829 - Elevated white blood cell count, unspecified (6) Acute renal failure Qualifiers: Acute renal failure type: unspecified Qualified Code(s): N17.9 - Acute kidney failure, unspecified <Reese Sahu - Last Filed: 12/15/17 18:26> (3) Diabetes Qualifiers: Diabetes mellitus type: type 2 Diabetes mellitus reimbursement coordinator insulin use: with reimbursement coordinator use Diabetes mellitus complication status: without complication Qualified Code(s): E11.9 - Type 2 diabetes mellitus without complications; Z79.4 - FDC (current) use of insulin (4) Hypertension Qualifiers: Hypertension type: essential hypertension Qualified Code(s): I10 - Essential (primary) hypertension (6) Leukocytosis Qualifiers: Leukocytosis type: unspecified Qualified Code(s): D72.829 - Elevated white blood cell count, unspecified (7) Acute renal failure Qualifiers: Acute renal failure type: unspecified Qualified Code(s): N17.9 - Acute kidney failure, unspecified
[2017-12-15] MEDS ORDERED: Metoclopramide 10 MG/2 ML VIAL IVP ONE (09:58)
[2017-12-15] MEDS: Pantoprazole 40 MG VIAL IVP SCH (19:33)
[2017-12-16] MEDS: cefOXitin 1,000 MG in Water for inj. (sterile) 20 ML 10 ML IVP SCH ×3 (00:34→15:15)
[2017-12-16] MEDS: Insulin LISPRO 300 UNITS/3 ML VIAL SQ SCH ×4 (00:35→18:47)
[2017-12-16] MEDS: Ondansetron 4 MG/2 ML VIAL IVP PRN ×2 (00:48→18:48)
[2017-12-16] MEDS: *HR* Heparin 5,000 UNIT/ML VIAL SQ SCH ×2 (05:31→18:47)
[2017-12-16 05:52] LABS: Basophils # 0.1 K/mcL (0.0-0.2); Basophils % 0.7 %; Eosinophils # 0.1 K/mcL (0.0-0.6); Eosinophils % 0.9 %; Hematocrit 29.7 % (35.3-44.9); Hemoglobin 9.2 g/dL (11.5-15.4); Immature Granulocytes % 0.7 % (0-4); Lymphocytes % 11.6 %; Mean Corpuscular Hemoglobin 27.9 pg (28.0-33.3); Mean Platelet Volume 11.2 fL (9.4-12.4); Monocytes # 0.7 K/mcL (0.0-1.3); Monocytes % 7.2 %; Neutrophils # 7.1 K/mcL (1.6-8.9); Platelet Count 370 K/mcL (140-400); Segmented Neutrophils % 78.9 %
[2017-12-16 06:11] LABS: Alanine Aminotransferase 26 Units/L (7-52); Albumin 2.6 g/dL (3.5-5.7); Albumin/Globulin Ratio 0.8 (1.1-2.2); Alkaline Phosphatase 221 Units/L (34-104); Amylase 150 Units/L (29-103); Aspartate Amino Transferase 31 Units/L (13-39); BUN/Creatinine Ratio 19 (6-26); Bilirubin,Total 0.4 mg/dL (0.3-1.0); Blood Urea Nitrogen 16 mg/dL (8-23); Calcium 8.5 mg/dL (8.6-10.3); Carbon Dioxide 23 mEq/L (23-29); Chloride 102 mEq/L (98-107); Globulin 3.4 g/dL (2.4-3.5); Glucose 209 mg/dL (70-105); Lipase 140 Units/L (11-82); Osmolality,Calculated 297 (280-300); Potassium 3.4 mEq/L (3.5-5.1); Sodium 140 mEq/L (136-145); eGFR For Non-African Americans > 60 (> 60)
[2017-12-16] MEDS ORDERED: Isovue-370 500 ML INFUS..BTL IV ONE ×2 (07:20→10:04)
--- NOTE | 2017-12-16 07:31 | General Surgery Progress Note ---
<Shirley Woodson - Last Filed: 12/16/17 17:35> Date of Encounter: 12/16/17 Time of Encounter: 07:22 - Assessment and Plan (1) Gallstone pancreatitis Current Visit: Yes Status: Acute Sever gallstone pancreatitis with necrosis; Clear contraindications to surgery. Cholecystectomy at this time will not change hospital course and can not be attempted safety due to significant inflammation of pancreas. Patient may need lap trip in future after more time to convalesce. Patient is currently unwilling to undergo surgical procedure. - CT abd pelvis with IV contrast, no oral because of type of thin NJ tube- to evaluate for for developing pancreatic psuedocyst surrounding superior mesenteric artery in last CT one week ago. If worsening consider transfer to [facility] for possible necrosectomy . Today's CT shows evolving pseudocysts similar to last CT and sever bile duct dilation. For further clarification see event note from Dr Barlow regarding limited usefulness of lap trip in this patient due to pancreatitis the procedure is designed to prevent has already occurred. Removal of gallbladder at this time will not improve clinical course. Surgery will continue to follow. Subjective Patient reports: pain is less (diffuse abdominal pain unable localize), bowel movement, afebrile, other (Patient refused surgery and when attempted to educate about risks told to "back off". She states that placing NJ was too much and not ready for any other procedure.) Objective Vital Signs - Last 8 Hours Temp Pulse Resp BP Pulse Ox 12/16/17 06:47 98.0 F 104 14 137/81 94 12/16/17 04:05 98.3 F 96 14 124/66 95 12/15/17 23:44 98.5 F 99 15 113/94 92 Intake and Output 12/15/17 12/15/17 12/16/17 15:59 23:59 07:59 Intake Total 104 / 104 1095 / 1095 244 / 244 Output Total 300 / 300 0 / 0 Balance -196 / -196 1095 / 1095 244 / 244 Intake: IV Fluids 104 / 104 1010 / 1010 KCl 20 mEq in 0.9% Sodium 1000 / 1000 Chloride 20 meq In 1,000 ml @ 75 mls/hr IVC .[id number] [facility] Rx#: [id number] Mefoxin 1,000 MG In Water for inj. (sterile) 10 ML @ 300 mls/ hr IVP Q8HR [facility] Rx#:[id number] Magnesium Sulfate 2 GM In 0.9 % 104 / 104 Sodium Chloride 100 ML @ 104 mls/hr IVPB ONCE ONE Rx#: [id number] Oral 0 / 0 60 / 60 60 / 60 Tube Feeding 174 / 174 Free Water Intake Amount 25 / 25 Output: Urine 0 / 0 0 / 0 Stool 300 / 300 Other: Meal NPO Stool Size Small Stool Consistency liquid loose Stool Color Brown Brown # Voids 1 1 1 # Bowel Movements 1 Weight 87.3 kg Blood Glucose* 162 167 187 Patient Weight 12/16/17 23:59 Weight 87.3 kg - General physical appearance well developed, well nourished, no distress, obese - Eyes normal ocular movement - ENT normal pinna, normal nares, no hearing loss - Respiratory normal expansion, normal respiratory effort, clear to auscultation - Cardiovascular Cardiovascular exam: Present: RRR, no murmurs/rubs/gallops - Abdomen Abdomen: Present: bowel sounds present, soft Abdominal Tenderness: diffusely Hernia: none - Neurologic CN 2-12 grossly intact, normal coordination, normal sensation - Musculoskeletal normal gait, normal posture - Psychiatric oriented to time, oriented to person, oriented to place, speech is normal, memory intact - Labs 12/16/17 04:00 12/16/17 05:25 Diabetes panel 12/16/17 Range/Units 05:25 Sodium 140 (136-145) mEq/L Potassium 3.4 L (3.5-5.1) mEq/L Chloride 102 (98-107) mEq/L Carbon Dioxide 23 (23-29) mEq/L BUN 16 (8-23) mg/dL Creatinine 0.84 (0.60-1.20) mg/dL Glucose 209 H (70-105) mg/dL Calcium 8.5 L (8.6-10.3) mg/dL AST 31 (13-39) Units/L ALT 26 (7-52) Units/L Alkaline Phosphatase 221 H (34-104) Units/L Albumin 2.6 L (3.5-5.7) g/dL Calcium panel 12/16/17 Range/Units 05:25 Calcium 8.5 L (8.6-10.3) mg/dL Albumin 2.6 L (3.5-5.7) g/dL Pituitary panel 12/16/17 Range/Units 05:25 Sodium 140 (136-145) mEq/L Potassium 3.4 L (3.5-5.1) mEq/L Chloride 102 (98-107) mEq/L Carbon Dioxide 23 (23-29) mEq/L BUN 16 (8-23) mg/dL Creatinine 0.84 (0.60-1.20) mg/dL Glucose 209 H (70-105) mg/dL Calcium 8.5 L (8.6-10.3) mg/dL Adrenal panel 12/16/17 Range/Units 05:25 Sodium 140 (136-145) mEq/L Potassium 3.4 L (3.5-5.1) mEq/L Chloride 102 (98-107) mEq/L Carbon Dioxide 23 (23-29) mEq/L BUN 16 (8-23) mg/dL Creatinine 0.84 (0.60-1.20) mg/dL Glucose 209 H (70-105) mg/dL Calcium 8.5 L (8.6-10.3) mg/dL Total Bilirubin 0.4 (0.3-1.0) mg/dL AST 31 (13-39) Units/L ALT 26 (7-52) Units/L Alkaline Phosphatase 221 H (34-104) Units/L Albumin 2.6 L (3.5-5.7) g/dL Consult Discharge Plan - Plan Instructions: Cholecystitis (DC), Low Fat Diet (DC) Referrals: Rodriguez Damon [Other] (Please call [phone] to schedule follow-up (to schedule interval cholecystecomy) in aprox 4 weeks) Carol Hurd, POOL INSTALLER [Primary Care Provider] - <Toñito Barlow - Last Filed: 12/17/17 16:37> Date of Encounter: 12/16/17 - Assessment and Plan (1) Gallstone pancreatitis Current Visit: Yes Status: Acute Objective Vital Signs - Last 8 Hours Temp Pulse Resp BP Pulse Ox 12/17/17 16:11 98.3 F 74 16 143/71 97 12/17/17 14:09 97.7 F 96 14 96 12/17/17 12:11 98.3 F 83 16 122/79 95 Intake and Output 12/17/17 12/17/17 12/17/17 07:59 15:59 23:59 Intake Total 765 / 765 130 / 130 Output Total 0 / 0 0 / 0 Balance 765 / 765 130 / 130 Intake: IV Fluids 765 / 765 10 / KCl 20 mEq in 0.9% Sodium 755 / 755 Chloride 20 meq In 1,000 ml @ 75 mls/hr IVC .[id number] [facility] Rx#: [id number] Mefoxin 1,000 MG In Water for inj. (sterile) 10 ML @ 300 mls/ hr IVP Q8HR [facility] Rx#:[id number] Oral 0 / 0 120 / 120 Output: Urine 0 / 0 0 / 0 Other: Meal NPO Breakfast. Percent of Meal Consumed 0% # Bowel Movements 0 0 Weight 86 kg Blood Glucose* 202 159 166 Patient Weight 12/17/17 23:59 Weight 86 kg - Labs 12/17/17 04:34 12/17/17 04:34 Diabetes panel 12/17/17 Range/Units 04:34 Sodium 142 (136-145) mEq/L Potassium 3.5 (3.5-5.1) mEq/L Chloride 105 (98-107) mEq/L Carbon Dioxide 25 (23-29) mEq/L BUN 13 (8-23) mg/dL Creatinine 0.75 (0.60-1.20) mg/dL Glucose 193 H (70-105) mg/dL Calcium 8.5 L (8.6-10.3) mg/dL AST 19 (13-39) Units/L ALT 29 (7-52) Units/L Alkaline Phosphatase 224 H (34-104) Units/L Albumin 2.6 L (3.5-5.7) g/dL Calcium panel 12/17/17 Range/Units 04:34 Calcium 8.5 L (8.6-10.3) mg/dL Albumin 2.6 L (3.5-5.7) g/dL Pituitary panel 12/17/17 Range/Units 04:34 Sodium 142 (136-145) mEq/L Potassium 3.5 (3.5-5.1) mEq/L Chloride 105 (98-107) mEq/L Carbon Dioxide 25 (23-29) mEq/L BUN 13 (8-23) mg/dL Creatinine 0.75 (0.60-1.20) mg/dL Glucose 193 H (70-105) mg/dL Calcium 8.5 L (8.6-10.3) mg/dL Adrenal panel 12/17/17 Range/Units 04:34 Sodium 142 (136-145) mEq/L Potassium 3.5 (3.5-5.1) mEq/L Chloride 105 (98-107) mEq/L Carbon Dioxide 25 (23-29) mEq/L BUN 13 (8-23) mg/dL Creatinine 0.75 (0.60-1.20) mg/dL Glucose 193 H (70-105) mg/dL Calcium 8.5 L (8.6-10.3) mg/dL Total Bilirubin 0.3 (0.3-1.0) mg/dL AST 19 (13-39) Units/L ALT 29 (7-52) Units/L Alkaline Phosphatase 224 H (34-104) Units/L Albumin 2.6 L (3.5-5.7) g/dL - Attending Attestation I examined this patient and my medical decision-making was reviewed with the Resident Physician. I agree with the documented findings, disposition and treatment plan as described except to the extent set forth below. Please see event none. 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 This is an indication of severe necrosis. Further care of the patient's complex pancreatic necrosis is beyond the capability of this institution and I have recommended transferred to tertiary [facility] with a dedicated pancreatic team. Toñito Barlow MD FACS
[2017-12-16] MEDS: 0.9 % Sodium Chloride w KCl 20 MEQ/1,000 ML MLS IVC SCH (10:40)
--- NOTE | 2017-12-16 13:53 | Gastroenterology Progress Note ---
<Gail Vela - Last Filed: 12/16/17 13:51> Date of Encounter: 12/16/17 Time of Encounter: 09:45 - Assessment and plan (1) Gallstone pancreatitis Status: Acute Assessment and plan: Patient is currently being treated for severe gallstone pancreatitis. She has already likely passed the stone since her WBC improved significantly. She has had minimal improvement of pain despite NPO, IVF, and time. Abdominal CT demonstrated peripancreatic fluid collections and pancreatic necrosis. WBC (9) 11.6 improving alkaline phosphatase 221 (126) increased total bilirubin 0.4 unchanged LFT WNL amylase 150, lipase 140 Patient appears improved from yesterday with abdominal exam soft, but still significant epigastric tender. Patient reports improvement of abdominal pain and is tolerating enteric feeding well. Denies nausea and vomiting. Plan: -continue NG tube enteric feeding per nutrition -Continue antibiotic cefoxitin day 3 as she is improving very slowly and pancreatic necrosis. -It was discussed with her that she would likely need a cholecystectomy prior to being discharged home. -General surgery following and has discussed with her about cholecystectomy (2) Anemia Status: Acute Assessment and plan: Normocytic anemia. Hemoglobin 9.2 (10.5), hematocrit 29.7, MCV 90 s/p 2 units of PRBC Patient denies melena, hematachezia, hematemesis. Patient is hemodynamically stable. No obvious active bleeding. iron<10 transferrin 127 (low) ferritin 468 (high) Plan: monitor H&H Qualifiers: Anemia type: unspecified type Qualified Code(s): D64.9 - Anemia, unspecified - Time Spent With Patient Total time spent is greater than 50% in coordination of care (as documented) at patient's floor/unit and/or counseling patient: - Subjective Interval history: Patient seen and examined at bedside. She is alert and oriented times 3. She reported that she is continuing abdominal pain however it has improved from admission. She has tolerated the enteric nutrition well without worsened abdominal pain or nausea and vomiting. Denies fever and chills. She is passing gas and having bowel movements. - Constitutional Vitals: Temp Pulse Resp BP Pulse Ox 98.3 F 97 16 111/73 92 12/16/17 10:02 12/16/17 10:02 12/16/17 10:02 12/16/17 10:02 12/16/17 10:02 General appearance: Present: cooperative, A&O X 3, no acute distress, answers questions appropriately Exam: Gen.: Vitals noted. No acute distress. AAOx3 HEENT: oropharynx clear, Normocephalic, atraumatic Neck: Supple. No adenopathy. Cardiac: RRR, no murmur, +S1/S2 Pulmonary: CTA bilaterally, no wheezes, rales or rhonchi, equal chest expansion Abdomen: soft, epigastric tender, Bowel sounds noted, no guarding MSK: ROM intact, no joint swelling noted Extremities: no BLE edema, nontender calf, no cyanosis or clubbing Neuro: A&Ox3, moves all extremities, no focal deficits Psych: Appropriate mood and behavior Results - Labs CBC & Chem 7: 12/16/17 04:00 12/16/17 05:25 Labs: Last Result Calcium 8.5 mg/dL (8.6-10.3) L 12/16/17 05:25 Iron < 10 mcg/dL (50-170) L 12/07/17 15:31 % Saturation TNP 12/07/17 15:31 Transferrin 127 mg/dL (203-362) L 12/07/17 15:31 Ferritin 468 ng/mL (10-120) H 12/07/17 15:31 C-Reactive Protein > 300 mg/L (Less than 10) H 12/04/17 04:55 Triglycerides 114 mg/dL (< 150) 12/03/17 16:41 Vitamin B12 826 pg/mL (250-1100) 12/07/17 15:31 Folate > 22.3 ng/mL (3.0-16.0) H 12/07/17 15:31 Entire Visit Hgb 9.2 g/dL (11.5-15.4) L 12/16/17 04:00 Hct 29.7 % (35.3-44.9) L 12/16/17 04:00 PT 15.4 Seconds (9.4-12.1) H 12/10/17 08:39 Ferritin 468 ng/mL (10-120) H 12/07/17 15:31 Total Bilirubin 0.4 mg/dL (0.3-1.0) 12/16/17 05:25 AST 31 Units/L (13-39) 12/16/17 05:25 ALT 26 Units/L (7-52) 12/16/17 05:25 Amylase 150 Units/L (29-103) H 12/16/17 05:25 Lipase 140 Units/L (11-82) H 12/16/17 05:25 Folate > 22.3 ng/mL (3.0-16.0) H 12/07/17 15:31 - ABG ABG results: PT/INR, D-dimer PT 15.4 Seconds (9.4-12.1) H 12/10/17 08:39 Consult Discharge Plan - Plan Instructions: Cholecystitis (DC), Low Fat Diet (DC) Referrals: Rodriguez Damon [Other] (Please call [phone] to schedule follow-up (to schedule interval cholecystecomy) in aprox 4 weeks) Carol Hurd, TWISTING MACHINE OPERATOR [Primary Care Provider] - <Ryan Dexter - Last Filed: 12/27/17 21:47> - Time Spent With Patient Total time spent is greater than 50% in coordination of care (as documented) at patient's floor/unit and/or counseling patient: - Constitutional Vitals: Temp Pulse Resp BP Pulse Ox 98.3 F 74 16 143/71 97 12/17/17 16:11 12/17/17 16:11 12/17/17 16:11 12/17/17 16:11 12/17/17 16:11 Results - Labs CBC & Chem 7: 12/17/17 04:34 12/17/17 04:34 Labs: Last Result Calcium 8.5 mg/dL (8.6-10.3) L 12/17/17 04:34 Iron < 10 mcg/dL (50-170) L 12/07/17 15:31 % Saturation TNP 12/07/17 15:31 Transferrin 127 mg/dL (203-362) L 12/07/17 15:31 Ferritin 468 ng/mL (10-120) H 12/07/17 15:31 C-Reactive Protein > 300 mg/L (Less than 10) H 12/04/17 04:55 Triglycerides 114 mg/dL (< 150) 12/03/17 16:41 Vitamin B12 826 pg/mL (250-1100) 12/07/17 15:31 Folate > 22.3 ng/mL (3.0-16.0) H 12/07/17 15:31 Entire Visit Hgb 9.0 g/dL (11.5-15.4) L 12/17/17 04:34 Hct 29.5 % (35.3-44.9) L 12/17/17 04:34 PT 15.4 Seconds (9.4-12.1) H 12/10/17 08:39 Ferritin 468 ng/mL (10-120) H 12/07/17 15:31 Total Bilirubin 0.3 mg/dL (0.3-1.0) 12/17/17 04:34 AST 19 Units/L (13-39) 12/17/17 04:34 ALT 29 Units/L (7-52) 12/17/17 04:34 Amylase 150 Units/L (29-103) H 12/16/17 05:25 Lipase 140 Units/L (11-82) H 12/16/17 05:25 Folate > 22.3 ng/mL (3.0-16.0) H 12/07/17 15:31 - ABG ABG results: PT/INR, D-dimer PT 15.4 Seconds (9.4-12.1) H 12/10/17 08:39 - Attending Attestation Patient about the same as yesterday, appears to be plateauing. Tolerating feeding via Nasojejunal tube. Very close watch on [employer] IV antibiotics. NPancreatic necrosis on CT. May repeat in the morning to follow up. Surgery also following patient. Gallstone pancreatitis. Guarded prognosis. Answered all questions. I examined this patient and my medical decision-making was reviewed with the Resident Physician. I agree with the documented findings, disposition and treatment plan as described except to the extent set forth below.
--- NOTE | 2017-12-16 14:02 | Event Note ---
Date of Encounter: 12/16/17 Time of Encounter: 07:20 We were asked to reconsult on the patient for consideration of scopic cholecystectomy. I personally reviewed the CAT scan images from 7 days ago. The patient has extensive pancreatic necrosis and peripancreatic edema. At the time of the CAT scan 7 days ago she was starting to form a rim of what appears to be an acute giant pancreatic pseudocyst. I think follow-up CAT scan would be very helpful in identifying whether or not giant pancreatic pseudocyst is forming and whether this would require further treatment and possible internal drainage or necrosectomy. Laparoscopic cholecystectomy is designed to prevent future episodes of choledocholithiasis and gallstone pancreatitis. Laparoscopic cholecystectomy cannot be performed safely in this setting. I do not recommend laparoscopic cholecystectomy during this hospitalization. Her main focus should be GI nutrition, estimation of the degree of pancreatic necrosis, close monitoring for clinical resolution with possible transfer to tertiary Medical Center for internal drainage of giant pancreatic pseudocyst or necrosectomy
[2017-12-16] MEDS: Pantoprazole 40 MG VIAL IVP SCH (18:47)
--- NOTE | 2017-12-16 19:27 | Internal Med Progress Note ---
Hospitalist Progress Note - Encounter Date of Encounter: 12/16/17 Time of Encounter: 12:45 - Subjective Interval History: Ms Hathaway is currently admitted for acute necrotizing gallstone pancreatitis. She remains moderate to high risk due to potential for worsening clinical status. Ms Hathaway is resting at this time. She had some emesis today - tube feed stopped. To have CT per surgery. No fever or chills. Still with abdominal pain. - Exam Vitals: Temp Pulse Resp BP Pulse Ox 98.4 F 56 16 127/77 97 12/16/17 18:33 12/16/17 18:33 12/16/17 18:33 12/16/17 18:33 12/16/17 18:33 Exam: General: Alert and oriented. Moderate distress due to pain. Skin: Normal color, no rash, no lesions. H: Normocephalic. EENT: EOMI. Mucus membranes dry. No lesion. Cardiovascular: Normal S1 & S2, no rubs, murmurs or gallops. No JVD. Pulse regular. Not tachycardic. Lungs: Diminished lung sounds. Abdomen: Tender diffusely. Extremities: No deformity, no edema or tenderness, no joint swelling or clubbing. Neurological: Normal cognition and motor skills. Pulses: Carotid and radial pulses normal +2. Rest of the physical exam is non contributory - Assessment and Plan (1) Biliary acute pancreatitis with uninfected necrosis Current Visit: Yes Status: Acute Assessment and Plan: Appreciate reeval by surgery. Repeat CT ordered. Continue nutrition support. May need TPN if unable to tolerate tube feeds. (2) Diabetes Current Visit: Yes Status: Chronic Assessment and Plan: Uncontrolled today. Continue accuchecks and coverage. (3) Hypertension Current Visit: Yes Status: Acute Assessment and Plan: Controlled today. (4) DVT prophylaxis Current Visit: Yes Status: Acute (5) Leukocytosis Current Visit: Yes Status: Resolved (6) Acute renal failure Current Visit: Yes Status: Resolved Assessment and Plan: Renal function improved. (7) Hypomagnesemia Current Visit: Yes Status: Acute Assessment and Plan: Recheck tomorrow. (8) Hypokalemia Current Visit: Yes Status: Acute Assessment and Plan: New again today. Replete. Recheck in AM. - Time Spent with Patient Total time spent is greater than 50% in coordination of care (as documented) at patient's floor/unit and/or counseling patient: Internal Medicine: Result - Labs CBC & Chem 7: 12/16/17 04:00 12/16/17 05:25 Labs: Short CBC 12/16/17 Range/Units 04:00 WBC 9.0 (4.3-11.1) K/mcL Hgb 9.2 L (11.5-15.4) g/dL Hct 29.7 L (35.3-44.9) % Plt Count 370 (140-400) K/mcL Neutrophils # 7.1 (1.6-8.9) K/mcL BMP 12/16/17 05:25 Sodium 140 Potassium 3.4 L Chloride 102 Carbon Dioxide 23 BUN 16 Creatinine 0.84 Glucose 209 H Calcium 8.5 L Liver Function 12/16/17 Range/Units 05:25 Total Bilirubin 0.4 (0.3-1.0) mg/dL AST 31 (13-39) Units/L ALT 26 (7-52) Units/L Alkaline Phosphatase 221 H (34-104) Units/L Albumin 2.6 L (3.5-5.7) g/dL - ABG Interpretation ABG results: PT/INR, D-dimer PT 15.4 Seconds (9.4-12.1) H 12/10/17 08:39 - Impressions Impressions Abdomen/Pelvis CT 12/16/17 10:04 IMPRESSION: 1. Redemonstration of changes of acute pancreatitis with multiple fluid collections likely representing evolving pseudocysts and appear similar to the previous evaluation. Redemonstration of severe dilation of the common bile duct which measures 1.5 cm. The overall dimension in the coronal diameter of the confluence of pseudocysts is 14 x 17 cm, similar to the previous evaluation. 2. Distention of the gallbladder which also contains stones but no evidence of thickening of the wall. 3. Small amount of free fluid in the pelvis. Diverticulosis but no acute diverticulitis. D/ 12/16/2017 15:00:46 Jackeline Mcintyre MD / stan Interpreting Provider: Jackeline Mcintyre MD Consult Discharge Plan - Plan Instructions: Cholecystitis (DC), Low Fat Diet (DC) Referrals: Rodriguez Damon [Other] (Please call [phone] to schedule follow-up (to schedule interval cholecystecomy) in aprox 4 weeks) Carol Hurd, JEWEL LATHE OPERATOR [Primary Care Provider] - (2) Diabetes Qualifiers: Diabetes mellitus type: type 2 Diabetes mellitus nursing home insulin use: with nursing home use Diabetes mellitus complication status: without complication Qualified Code(s): E11.9 - Type 2 diabetes mellitus without complications; Z79.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
[2017-12-16] MEDS: traMADol 50 MG TABLET PO PRN (20:28)
[2017-12-17] MEDS: cefOXitin 1,000 MG in Water for inj. (sterile) 20 ML 10 ML IVP SCH ×3 (01:37→16:00)
[2017-12-17] MEDS: Insulin LISPRO 300 UNITS/3 ML VIAL SQ SCH ×3 (01:46→14:38)
[2017-12-17] MEDS: 0.9 % Sodium Chloride w KCl 20 MEQ/1,000 ML MLS IVC SCH ×2 (01:57→18:45)
[2017-12-17 04:49] LABS: Basophils % 0.5 %; Eosinophils # 0.1 K/mcL (0.0-0.6); Eosinophils % 1.8 %; Hematocrit 29.5 % (35.3-44.9); Immature Granulocytes % 0.7 % (0-4); Lymphocytes # 1.5 K/mcL (0.6-4.6); Lymphocytes % 19.4 %; Mean Corpuscular HGB Conc 30.5 g/dL (31.6-35.5); Mean Corpuscular Hemoglobin 27.9 pg (28.0-33.3); Mean Corpuscular Volume 91.3 fL (83.0-100.0); Mean Platelet Volume 11.2 fL (9.4-12.4); Monocytes # 0.7 K/mcL (0.0-1.3); Monocytes % 8.8 %; Neutrophils # 5.2 K/mcL (1.6-8.9); Platelet Count 334 K/mcL (140-400); Red Blood Count 3.23 M/mcL (3.82-4.97); Red Cell Distribution Width 12.8 % (11.5-14.5); Segmented Neutrophils % 68.8 %
[2017-12-17 05:11] LABS: Alanine Aminotransferase 29 Units/L (7-52); Albumin 2.6 g/dL (3.5-5.7); Albumin/Globulin Ratio 0.8 (1.1-2.2); Alkaline Phosphatase 224 Units/L (34-104); Aspartate Amino Transferase 19 Units/L (13-39); BUN/Creatinine Ratio 17 (6-26); Bilirubin,Total 0.3 mg/dL (0.3-1.0); Blood Urea Nitrogen 13 mg/dL (8-23); Calcium 8.5 mg/dL (8.6-10.3); Carbon Dioxide 25 mEq/L (23-29); Chloride 105 mEq/L (98-107); Globulin 3.2 g/dL (2.4-3.5); Glucose 193 mg/dL (70-105); Magnesium 1.6 mg/dL (1.6-2.6); Osmolality,Calculated 299 (280-300); Potassium 3.5 mEq/L (3.5-5.1); Sodium 142 mEq/L (136-145); Total Protein 5.8 g/dL (6.4-8.9); eGFR For Non-African Americans > 60 (> 60)
[2017-12-17 05:13] LABS: Platelet Estimate Normal (Normal)
[2017-12-17] MEDS: *HR* Heparin 5,000 UNIT/ML VIAL SQ SCH ×2 (06:50→17:59)
[2017-12-17] MEDS ORDERED: Lidocaine -MPF 1% 5 ML AMPUL INFILT ONE (10:19)
--- NOTE | 2017-12-17 10:48 | Gastroenterology Progress Note ---
<Gail Vela - Last Filed: 12/17/17 10:46> Date of Encounter: 12/17/17 Time of Encounter: 10:30 - Assessment and plan (1) Gallstone pancreatitis Status: Acute Assessment and plan: Patient is currently being treated for severe gallstone pancreatitis. She has already likely passed the stone since her WBC improved significantly. She has had minimal improvement of pain despite NPO, IVF, and time. Abdominal CT demonstrated peripancreatic fluid collections and pancreatic necrosis. WBC (9) 11.6 improving alkaline phosphatase 224 (126) increased total bilirubin 0.3 LFT WNL amylase 150, lipase [address] 12/16/2017 demonstrated peripancreatic fluid collections that are developing into pseudo-cyst. Dilated CBD 1.5 cm. Patient appears improved from yesterday with abdominal exam soft, but still significant diffuse abdominal tenderness to soft touch, nondistended, bowel sounds present. Patient reports she still has abdominal pain but feels it has improved from admission. Enteric feeding was stopped yesterday due to nausea and vomiting. Today she denies nausea, vomiting, fever, chills. Plan: -discussed with the patient the concern for possible stone obstruction in the common bile duct after reviewing the abdominal CT that was done yesterday. Will order a MRCP. Discussed possible need for ERCP should there be a stone. -Continue antibiotic cefoxitin day 4 as she is improving very slowly and pancreatic necrosis. -It was discussed with her that she would likely need a cholecystectomy prior to being discharged home. -General surgery is following (2) Anemia Status: Acute Assessment and plan: Normocytic anemia. Stable Hemoglobin 9.0 (10.5), hematocrit 29.7, MCV 90 s/p 2 units of PRBC Patient denies melena, hematachezia, hematemesis. Patient is hemodynamically stable. No obvious active bleeding. iron<10 transferrin 127 (low) ferritin 468 (high) Plan: monitor H&H Qualifiers: Anemia type: unspecified type Qualified Code(s): D64.9 - Anemia, unspecified - Time Spent With Patient Total time spent is greater than 50% in coordination of care (as documented) at patient's floor/unit and/or counseling patient: - Subjective Interval history: Patient seen and examined at bedside. She is alert and oriented times 3. She reported she still has abdominal pain but feels it has improved. Her enteric feeding was stopped yesterday as she started vomiting. Today she denies nausea, vomiting, fever, chills. She has no other complaints. - Constitutional Vitals: Temp Pulse Resp BP Pulse Ox 97.9 F 88 14 122/77 93 12/17/17 06:41 12/17/17 06:41 12/17/17 06:41 12/17/17 06:41 12/17/17 06:41 General appearance: Present: cooperative, A&O X 3, no acute distress, answers questions appropriately Exam: Gen.: Vitals noted. No acute distress. AAOx3 HEENT: oropharynx clear, Normocephalic, atraumatic Neck: Supple. No adenopathy. Cardiac: RRR, no murmur, +S1/S2 Pulmonary: CTA bilaterally, no wheezes, rales or rhonchi, equal chest expansion Abdomen: soft, diffuse tender to light touch, Bowel sounds noted, no guarding, no distention MSK: ROM intact, no joint swelling noted Extremities: no BLE edema, nontender calf, no cyanosis or clubbing Neuro: A&Ox3, moves all extremities, no focal deficits Psych: Appropriate mood and behavior Results - Labs CBC & Chem 7: 12/17/17 04:34 12/17/17 04:34 Labs: Last Result Calcium 8.5 mg/dL (8.6-10.3) L 12/17/17 04:34 Iron < 10 mcg/dL (50-170) L 12/07/17 15:31 % Saturation TNP 12/07/17 15:31 Transferrin 127 mg/dL (203-362) L 12/07/17 15:31 Ferritin 468 ng/mL (10-120) H 12/07/17 15:31 C-Reactive Protein > 300 mg/L (Less than 10) H 12/04/17 04:55 Triglycerides 114 mg/dL (< 150) 12/03/17 16:41 Vitamin B12 826 pg/mL (250-1100) 12/07/17 15:31 Folate > 22.3 ng/mL (3.0-16.0) H 12/07/17 15:31 Entire Visit Hgb 9.0 g/dL (11.5-15.4) L 12/17/17 04:34 Hct 29.5 % (35.3-44.9) L 12/17/17 04:34 PT 15.4 Seconds (9.4-12.1) H 12/10/17 08:39 Ferritin 468 ng/mL (10-120) H 12/07/17 15:31 Total Bilirubin 0.3 mg/dL (0.3-1.0) 12/17/17 04:34 AST 19 Units/L (13-39) 12/17/17 04:34 ALT 29 Units/L (7-52) 12/17/17 04:34 Amylase 150 Units/L (29-103) H 12/16/17 05:25 Lipase 140 Units/L (11-82) H 12/16/17 05:25 Folate > 22.3 ng/mL (3.0-16.0) H 12/07/17 15:31 - ABG ABG results: PT/INR, D-dimer PT 15.4 Seconds (9.4-12.1) H 12/10/17 08:39 - Impressions Impressions Abdomen/Pelvis CT 12/16/17 10:04 IMPRESSION: 1. Redemonstration of changes of acute pancreatitis with multiple fluid collections likely representing evolving pseudocysts and appear similar to the previous evaluation. Redemonstration of severe dilation of the common bile duct which measures 1.5 cm. The overall dimension in the coronal diameter of the confluence of pseudocysts is 14 x 17 cm, similar to the previous evaluation. 2. Distention of the gallbladder which also contains stones but no evidence of thickening of the wall. 3. Small amount of free fluid in the pelvis. Diverticulosis but no acute diverticulitis. D/ / 12/16/2017 15:00:46 Jackeline Mcintyre MD / stan Interpreting Provider: Jackeline Mcintyre MD Consult Discharge Plan - Plan Instructions: Cholecystitis (DC), Low Fat Diet (DC) Referrals: Rodriguez Damon [Other] (Please call [phone] to schedule follow-up (to schedule interval cholecystecomy) in aprox 4 weeks) Carol Hurd, RESTAURANT MANAGING PARTNER [Primary Care Provider] - <Ryan Dexter - Last Filed: 12/27/17 21:42> - Time Spent With Patient Total time spent is greater than 50% in coordination of care (as documented) at patient's floor/unit and/or counseling patient: - Constitutional Vitals: Temp Pulse Resp BP Pulse Ox 98.3 F 74 16 143/71 97 12/17/17 16:11 12/17/17 16:11 12/17/17 16:11 12/17/17 16:11 12/17/17 16:11 Results - Labs CBC & Chem 7: 12/17/17 04:34 12/17/17 04:34 Labs: Last Result Calcium 8.5 mg/dL (8.6-10.3) L 12/17/17 04:34 Iron < 10 mcg/dL (50-170) L 12/07/17 15:31 % Saturation TNP 12/07/17 15:31 Transferrin 127 mg/dL (203-362) L 12/07/17 15:31 Ferritin 468 ng/mL (10-120) H 12/07/17 15:31 C-Reactive Protein > 300 mg/L (Less than 10) H 12/04/17 04:55 Triglycerides 114 mg/dL (< 150) 12/03/17 16:41 Vitamin B12 826 pg/mL (250-1100) 12/07/17 15:31 Folate > 22.3 ng/mL (3.0-16.0) H 12/07/17 15:31 Entire Visit Hgb 9.0 g/dL (11.5-15.4) L 12/17/17 04:34 Hct 29.5 % (35.3-44.9) L 12/17/17 04:34 PT 15.4 Seconds (9.4-12.1) H 12/10/17 08:39 Ferritin 468 ng/mL (10-120) H 12/07/17 15:31 Total Bilirubin 0.3 mg/dL (0.3-1.0) 12/17/17 04:34 AST 19 Units/L (13-39) 12/17/17 04:34 ALT 29 Units/L (7-52) 12/17/17 04:34 Amylase 150 Units/L (29-103) H 12/16/17 05:25 Lipase 140 Units/L (11-82) H 12/16/17 05:25 Folate > 22.3 ng/mL (3.0-16.0) H 12/07/17 15:31 - ABG ABG results: PT/INR, D-dimer PT 15.4 Seconds (9.4-12.1) H 12/10/17 08:39 - Attending Attestation Patient with gallstone pancreatitis who has not been able to eat. She complains of severe epigastric pain. Had a long discussion with her about the importance fo early feeding and plan to place a Nasojejunal tube for nutrition. She is agreeable. Dr Vela will speak with IR to facilitate this. Answered all patient's questions. Manage here at [facility] for now. I examined this patient and my medical decision-making was reviewed with the Resident Physician. I agree with the documented findings, disposition and treatment plan as described except to the extent set forth below.
[2017-12-17] MEDS ORDERED: D10% in Water 500 ML IVC PRN (12:56)
--- NOTE | 2017-12-17 13:06 | Internal Med Progress Note ---
Hospitalist Progress Note - Encounter Date of Encounter: 12/17/17 Time of Encounter: 10:00 - Subjective Interval History: Ms Hathawya is currently admitted for acute necrotizing gallstone pancreatitis. She remains moderate to high risk due to potential for worsening clinical status. Ms Hathaway was awake and eating ice chips. She feels hungry. Pain is OK at this time. No fever or chills. No cough or SOB. Vomited tube feed yesterday so stopped. Dobhoff still in place - checking placement. Planning to start TPN today. - Exam Vitals: Temp Pulse Resp BP Pulse Ox 98.3 F 83 16 122/79 95 12/17/17 12:11 12/17/17 12:11 12/17/17 12:11 12/17/17 12:11 12/17/17 12:11 Exam: General: Alert and oriented. More comfortable today. Skin: Normal color, no rash, no lesions. H: Normocephalic. EENT: EOMI. Mucus membranes dry. No lesion. Cardiovascular: Normal S1 & S2, no rubs, murmurs or gallops. No JVD. Pulse regular. Slightly tachycardic at this time. Lungs: Diminished lung sounds. No wheeze, rales, rhonchi. Abdomen: Tender diffusely. Overall exam about the same. Extremities: No deformity, no edema or tenderness, no joint swelling or clubbing. Neurological: Normal cognition and motor skills. Pulses: Carotid and radial pulses normal +2. Rest of the physical exam is non contributory - Assessment and Plan (1) Biliary acute pancreatitis with uninfected necrosis Current Visit: Yes Status: Acute Assessment and Plan: Repeat CT done yesterday - pancreatic pseudocysts. Seen by GI today - concerned about dilation of CBD. To have MRCP. Place PICC and start TPN. Dobhoff still present. Will check position. Still would prefer to have postpyloric feedings. If still in stomach will consider removing and replacing with new dobhoff. Pt is at high risk for refeeding syndrome. (2) Diabetes Current Visit: Yes Status: Chronic Assessment and Plan: Blood sugars were higher while on TPN. That is stopped so they have improved. Will continue same regimen for now. (3) Hypertension Current Visit: Yes Status: Chronic Assessment and Plan: Controlled. (4) DVT prophylaxis Current Visit: Yes Status: Acute (5) Acute renal failure Current Visit: Yes Status: Resolved Assessment and Plan: Renal function improved. (6) Hypomagnesemia Current Visit: Yes Status: Resolved Assessment and Plan: Resolved. (7) Hypokalemia Current Visit: Yes Status: Resolved Assessment and Plan: Resolved. Recheck electrolytes tomorrow. - Time Spent with Patient Total time spent is greater than 50% in coordination of care (as documented) at patient's floor/unit and/or counseling patient: Internal Medicine: Result - Labs CBC & Chem 7: 12/17/17 04:34 12/17/17 04:34 Labs: Short CBC 12/17/17 Range/Units 04:34 WBC 7.6 (4.3-11.1) K/mcL Hgb 9.0 L (11.5-15.4) g/dL Hct 29.5 L (35.3-44.9) % Plt Count 334 (140-400) K/mcL Neutrophils # 5.2 (1.6-8.9) K/mcL BMP 12/17/17 04:34 Sodium 142 Potassium 3.5 Chloride 105 Carbon Dioxide 25 BUN 13 Creatinine 0.75 Glucose 193 H Calcium 8.5 L Liver Function 12/17/17 Range/Units 04:34 Total Bilirubin 0.3 (0.3-1.0) mg/dL AST 19 (13-39) Units/L ALT 29 (7-52) Units/L Alkaline Phosphatase 224 H (34-104) Units/L Albumin 2.6 L (3.5-5.7) g/dL - ABG Interpretation ABG results: PT/INR, D-dimer PT 15.4 Seconds (9.4-12.1) H 12/10/17 08:39 - Impressions Impressions Abdomen/Pelvis CT 12/16/17 10:04 IMPRESSION: 1. Redemonstration of changes of acute pancreatitis with multiple fluid collections likely representing evolving pseudocysts and appear similar to the previous evaluation. Redemonstration of severe dilation of the common bile duct which measures 1.5 cm. The overall dimension in the coronal diameter of the confluence of pseudocysts is 14 x 17 cm, similar to the previous evaluation. 2. Distention of the gallbladder which also contains stones but no evidence of thickening of the wall. 3. Small amount of free fluid in the pelvis. Diverticulosis but no acute diverticulitis. D/ / 12/16/2017 15:00:46 Jackeline Mcintyre MD / stan Interpreting Provider: Jackeline Mcintyre MD Consult Discharge Plan - Plan Instructions: Cholecystitis (DC), Low Fat Diet (DC) Referrals: Rodriguez Damon [Other] (Please call [phone] to schedule follow-up (to schedule interval cholecystecomy) in aprox 4 weeks) Carol Hurd, FASHION INTERN [Primary Care Provider] - (2) Diabetes Qualifiers: Diabetes mellitus type: type 2 Diabetes mellitus intermodal owner operator truck driver insulin use: with intermodal owner operator truck driver use Diabetes mellitus complication status: without complication Qualified Code(s): E11.9 - Type 2 diabetes mellitus without complications; Z79.4 - senior living (current) use of insulin (3) Hypertension Qualifiers: Hypertension type: essential hypertension Qualified Code(s): I10 - Essential (primary) hypertension (5) Acute renal failure Qualifiers: Acute renal failure type: unspecified Qualified Code(s): N17.9 - Acute kidney failure, unspecified
[2017-12-17] MEDS ORDERED: Metoclopramide 10 MG/2 ML VIAL IVP ONE (14:06)
[2017-12-17] MEDS: traMADol 50 MG TABLET PO PRN (15:59)
--- NOTE | 2017-12-17 16:06 | Discharge Summary ---
- NOTES TO OUTPATIENT PROVIDER Notes to Outpatient Provider: Pt admitted with acute pancreatitis related to gallstones. She has developed pseudocyts and necrosis and is being transferred for pancreatobiliary evaluation. Orders not resulted at time of discharge: Pending orders 12/18/17 04:00 Basic Metabolic Panel AM 0400 Magnesium AM 0400 Phosphorous AM 0400 Triglycerides AM 0400 Date of Encounter: 12/17/17 Time of Encounter: 10:00 - Discharge Diagnosis (1) Biliary acute pancreatitis with uninfected necrosis Priority: Primary Status: Acute (2) Diabetes Priority: Secondary Status: Chronic Qualifiers: Diabetes mellitus type: type 2 Diabetes mellitus exterminator termite insulin use: with half-way use Diabetes mellitus complication status: without complication Qualified Code(s): E11.9 - Type 2 diabetes mellitus without complications; Z79.4 - exterminator termite (current) use of insulin (3) Hypertension Priority: Secondary Status: Chronic Qualifiers: Hypertension type: essential hypertension Qualified Code(s): I10 - Essential (primary) hypertension (4) Acute renal failure Priority: Secondary Status: Resolved Qualifiers: Acute renal failure type: unspecified Qualified Code(s): N17.9 - Acute kidney failure, unspecified (5) Hypomagnesemia Priority: Secondary Status: Resolved (6) Hypokalemia Priority: Secondary Status: Resolved (7) Anemia Priority: Secondary Status: Acute Qualifiers: Anemia type: iron deficiency Iron deficiency anemia type: other iron deficiency Qualified Code(s): D50.8 - Other iron deficiency anemias (8) Malnutrition Priority: Secondary Status: Suspected Qualifiers: Malnutrition type: protein-calorie malnutrition Protein-calorie malnutrition severity: unspecified severity Qualified Code(s): E46 - Unspecified protein-calorie malnutrition Hospital course: Ms. Hathaway is a 62 year old female with hx of HTN and DM presented as a transfer from [facility] due to acute pancreatitis and associated cholelithiasis. Ms Hathaway initially presented to [facility] for fever, nausea, vomiting and diarrhea. Symptoms present for at least 4 days prior. She was noted to have acute renal failure and was lethargic and was admitted there and placed on IV abx and fluids. WBC increased and MRCP showed acute pancreatitis and multiple gallstones with no acute cholecystitis on RUQ ultrasound. Upon arrival here she was still having abdominal pain. Creatinine had improved. She was admitted for further GI work up. On 12/[address] abd/pelvis and had acute pancreatitis with no necrosis. She had some pelvic ascites and bilateral pleural effusions as well. She was seen by GI and there was no need for intervention as there was no evidence of obstruction. Due to leukocytosis she was seen by ID service and abx were stopped. Her WBC ultimately improved. Over the next two days she continued to have abd pain and nausea. On 12/06 she was seen by surgery who felt that cholecystectomy would need to be done after a period of convalescence. On she attempted a diet but over the next few days had less of an appetite. On 12/[address] which showed evidence of pancreatic pseudocyst formation and necrosis. She had a decrease in hemoglobin and found to have iron deficiency. She was transfused 2 units PRBCs on 12/10. She was to have EGD but refused procedure as well as NG placement for feeding. Consideration was given to TPN but there were issues. She had dobhoff placed on 12/14 but it did not migrate to jejunum. Tube feeds tried at slow rate but she did not tolerate. She is tolerating ice chips. Repeat CT done on 12/16 which showed evolving pseudocysts. She was re- evaluated by surgery and GI. MRCP done today and she has pressure on her portal vein system. After further discussion it was felt she should be transferred to higher level of care for further pancreatobiliary intervention. [facility] has been called. Flu vaccine deferred to [facility]. Discharge discussed with: patient, nurse - Time Spent with Patient Total time spent providing and/or coordinating discharge services: 46min - Discharge Medications Home Medications: Gluc 2Kcl/Chondr/Rivas Hy/Hy AC [Glucosamine & Chondroitin Cap] 1 each PO DAILY 12/03/17 [History] Lisinopril/Hydrochlorothiazide [Zestoretic 20-25 mg Tablet] 1 each PO DAILY [History] glipiZIDE [Glipizide] 10 mg PO DAILY 12/03/17 [History] metFORMIN [Glucophage] 1,000 mg PO BID 12/03/17 [History] Allergies/Adverse Reactions: 3 Allergy/AdvReac Type Severity Reaction Status Date / Time diphenhydramine Allergy Hives Verified 12/03/17 15:08 [From Benadryl] morphine Allergy Hives Verified 12/03/17 15:08 Penicillins Allergy Hives Verified 12/03/17 15:08 Date of admission: 12/03/17 15:40 Primary care physician: Carol Hurd CNP Consults: 12/03/17 16:07 Consult to Gastroenterology [CONS] Routine Consulting Provider: Gastroenterology Kristen Reason for Consult: pancreatitis, possible ERCP Call Completed: Yes 12/04/17 10:01 Consult to Infectious Diseases [CONS] Routine Consulting Provider: Infectious Disease [place] Reason for Consult: Leukocytosis, possible infection Call Completed: Yes 12/06/17 12:18 Consult to Surgery [CONS] Routine Consulting Provider: Surgery Kristen Surgical Reason for Consult: Gallstone pancreatitis Call Completed: Yes 12/07/17 15:08 Consult to Occupational Therapy [CONS] Routine Comment: Evaluate, develop and implement POC Reason for Consult: Evaluate, develop and implement POC Does patient have active BEDREST order?: No Is patient medically & hemodynamically stable?: Yes Consult to Physical Therapy [CONS] Routine Comment: Evaluate, develop and implement POC Reason for Consult: Disposition planning. Therapy - weakness in bed. Does patient have active BEDREST order?: No Is patient medically & hemodynamically stable?: Yes 12/10/17 15:17 Consult to Invasive Line Access Team [CONS] Routine Reason for Consult: poor access Line Type: EPIV 12/11/17 10:50 Consult to Sculpture Conservator [CONS] Routine Reason for SW Consult: Patient refusing treatment for gallstone pancreatitis. Currently planning to get TPN, however I'm concerned that ins will not pay for this and patient will have to pay out of pocket due to declining other treatment. Would appreciate you input, thank you. 12/14/17 11:12 Consult to Interventional Radiology [CONS] Routine Consulting Provider: Radiology Interventional Cols Reason for Consult: nasojejunal tube placement for enteric feeding Call Completed: No 12/14/17 14:47 Consult to Nutrition [CONS] Routine Comment: Consulting Provider: NUTRITION Reason for Dietary Consult: Tube Feed Start & Manage 12/17/17 10:20 Consult to Invasive Line Access Team [CONS] Routine Reason for Consult: Picc Line Insertion Line Type: PICC 12/17/17 10:21 consult to electronic communications technician [Consult to Nutrition] [CONS] Routine Comment: Consulting Provider: NUTRITION Reason for Dietary Consult: TPN Start and Manage Discharging clinician: Reese Sahu Anticipated date of discharge: 12/17/17 - Constitutional Vitals: Temp Pulse Resp BP Pulse Ox 97.7 F 96 14 122/79 96 12/17/17 14:09 12/17/17 14:09 12/17/17 14:09 12/17/17 12:11 12/17/17 14:09 General appearance: Present: A&O X 3, obese Exam: See below - Head Head exam: Present: normocephalic - Eye Eye exam: Present: EOMI, conjuntiva pink - ENT ENT exam: Present: mucous membranes dry - Respiratory Respiratory exam: Present: decreased breath sounds. Absent: rales, rhonchi, wheezes - Cardiovascular Cardiovascular exam: Present: RRR. Absent: tachycardia - GI/Abdominal GI/Abdominal exam: Present: hypoactive bowel sounds, tenderness - Extremities Exam Extremities exam: Present: warm. Absent: tenderness Additional comments: L foot cooler than R but has good pulses. - Neurological Exam Neurological exam: Present: alert, oriented X3 - Skin Skin exam: Present: dry, warm - Patient Status Disposition: Transfer Short-Term Hosp Condition: Fair Functional capacity at discharge: independent ambulation Overall status at discharge: patient is not back to baseline - Discharge Instructions Instructions: Cholecystitis (DC), Low Fat Diet (DC) Follow Up With: Rodriguez Damon [Other] (Please call [phone] to schedule follow-up (to schedule interval cholecystecomy) in aprox 4 weeks) Carol Hurd, TRUCK DRIVER FLATBED [Primary Care Provider] - - Diet and Activity Activity: increase activity as tolerated Diet: other (clear liquid diet)
[2017-12-17 16:16] VITALS: BP 143/71
[2017-12-17] MEDS ORDERED: Insulin LISPRO 300 UNITS/3 ML VIAL SQ SCH ×2 (16:30→21:00)
[2017-12-17] MEDS ORDERED: Clinimix E 5%-15% SOLUTION 2,000 ML with MVI, adult with vitamin K 10 ML IVC SCH (17:00)
[2017-12-17] MEDS: Pantoprazole 40 MG VIAL IVP SCH (17:51)
[2017-12-17] MEDS: Ondansetron 4 MG/2 ML VIAL IVP PRN (18:00)
== END 2017-12-17 19:23 | disposition critical access hospital (66) | DRG 439 ==
LOC: SUATTDRO 15:40 → 3ANU 15:40
PROVIDERS: ADMIT Internal Medicine; ATTEND Internal Medicine